=== PATIENT | female | born 1995 | race Caucasian/White ===

== ENCOUNTER 2018-05-10 23:26 | Emergency (ER) | payer BC, OTHER ==
[2018-05-11] MEDS ORDERED: IPRATROPIUM-ALBUTEROL 3 ML NEB INHALATION STA (00:17)
[2018-05-11 01:01] LABS: Basophils % (A) 0 %; Eosinophils # (A) 0.2 k/uL (0-0.7); Eosinophils % (A) 3 %; HCT 43.9 % (34.0-46.0); HGB 14.5 gm/dL (11.4-16.0); Lymphocytes # (A) 1.8 k/uL (1.0-4.8); Lymphocytes % (A) 32 %; MCH 29.3 pg (25.0-35.0); MCHC 32.9 g/dL (31.0-37.0); MCV 88.9 fL (80.0-100.0); Mean Platelet Volume 7.7; Monocytes # (A) 0.4 k/uL (0-1.0); Monocytes % (A) 6 %; Neutrophils # (A) 3.2 k/uL (1.3-7.7); Neutrophils % (A) 57 %; Platelet Count 226 k/uL (150-450); RBC 4.94 m/uL (3.80-5.40); RDW 14.5 % (11.5-15.5); WBC 5.7 k/uL (3.8-10.6)
--- NOTE | 2018-05-11 01:03 | ED ---
General Adult HPI - General Source: patient, RN notes reviewed, old records reviewed Mode of arrival: ambulatory Limitations: no limitations <Natali Cramer - Last Filed: 05/12/18 14:27> <Clare Chen - Last Filed: 05/17/18 04:06> - General Chief complaint: Upper Respiratory Infection Stated complaint: URI Time Seen by Provider: 05/10/18 23:57 - History of Present Illness Initial comments: Patient is a 23 year old female with a few weeks of cough, congestion, and chestpain. She reports that her sputum is brown tinged. She denies fever or chills. She was concerned due to increaseing chest pain on bilateral lower ribs with breathing, that she felt the need to be seen. She reports no nausea, vomiting. She is a smoker. (Natali Cramer) - Related Data Home Medications Medication Instructions Recorded Confirmed Desvenlafaxine Succinate [Pristiq] 100 mg PO DAILY 11/25/15 05/19/16 Pnv,Calcium 72/Iron/Folic Acid 1 each PO DAILY 04/25/16 05/19/16 [ Plus Tablet] Previous Rx's Medication Instructions Recorded Albuterol Inhaler [Ventolin Hfa 1 - 2 puff INHALATION RT-Q6H PRN 05/11/18 Inhaler] #1 inhaler Azithromycin [Zithromax Z-pack] 250 mg PO DIRECTED #6 tab 05/11/18 methylPREDNISolone Dose Pack 4 mg PO DIRECTED #21 package 05/11/18 [Medrol Dose Pack] Allergies Allergy/AdvReac Type Severity Reaction Status Date / Time No Known Allergies Allergy Verified 05/19/16 06:21 Review of Systems ROS Other: All systems not noted in ROS Statement are negative. <Natali Cramer - Last Filed: 05/12/18 14:27> ROS Other: All systems not noted in ROS Statement are negative. <Clare Chen - Last Filed: 05/17/18 04:06> ROS Statement: Those systems with pertinent positive or pertinent negative responses have been documented in the HPI. Past Medical History Past Medical History: GERD/Reflux Additional Past Medical History / Comment(s): frequent bronchitis History of Any Multi-Drug Resistant Organisms: None Reported Past Surgical History: Section Past Anesthesia/Blood Transfusion Reactions: No Reported Reaction Past Psychological History: Anxiety, Depression Smoking Status: Current every day smoker Past Alcohol Use History: Occasional Past Drug Use History: None Reported - Past Family History Mother Family Medical History: No Reported History Father Family Medical History: Hyperlipidemia, Hypertension Additional Family Medical History / Comment(s): psoriasis <Natali Cramer - Last Filed: 05/12/18 14:27> General Exam Limitations: no limitations General appearance: alert, in no apparent distress Head exam: Present: atraumatic, normocephalic, normal inspection Eye exam: Present: normal appearance, PERRL, EOMI. Absent: scleral icterus, conjunctival injection, periorbital swelling ENT exam: Present: normal exam, mucous membranes moist Neck exam: Present: normal inspection. Absent: tenderness, meningismus, lymphadenopathy Respiratory exam: Present: normal lung sounds bilaterally. Absent: respiratory distress, wheezes, rales, rhonchi, stridor Cardiovascular Exam: Present: regular rate, normal rhythm, normal heart sounds. Absent: systolic murmur, diastolic murmur, rubs, gallop, clicks GI/Abdominal exam: Present: soft, normal bowel sounds. Absent: distended, tenderness, guarding, rebound, rigid Psychiatric exam: Present: normal affect, normal mood Skin exam: Present: warm, dry, intact, normal color. Absent: rash <Natali Cramer - Last Filed: 05/12/18 14:27> <Clare Chen - Last Filed: 05/17/18 04:06> - General Exam Comments Initial Comments: 23 year old female, no distress. (Natali Cramer) Vital Signs 05/10/18 05/11/18 05/11/18 23:54 00:15 00:59 Temperature 98.4 F Pulse Rate 74 76 Respiratory 16 Rate Blood Pressure 126/80 O2 Sat by Pulse 92 L 100 Oximetry 05/11/18 05/11/18 01:06 02:05 Temperature 98 F Pulse Rate 70 85 Respiratory 18 Rate Blood Pressure 129/85 O2 Sat by Pulse 97 Oximetry EKG Findings - EKG Comments: EKG Findings:: EKG performed at 0 30 shows no essential abnormal EKG. Ventricular rate of 65 bpm. NE interval is 140 ms. QRS ration 86 ms. QT QTc is 410/426 ms. <Natali Cramer - Last Filed: 05/12/18 14:27> Medical Decision Making - Lab Data Result diagrams: 05/11/18 00:40 - Radiology Data Radiology results: report reviewed <Natali Cramer - Last Filed: 05/12/18 14:27> - Lab Data Result diagrams: 05/11/18 00:40 <Clare Chen - Last Filed: 05/17/18 04:06> - Medical Decision Making 23 year old female with weeks of cough, congestion, and reports worsening chest pain. She has no fevers or chills, vital signs stable. Lungs are clear, no significant wheezing noted. She reports tightness with breathing. She related to have a brown tinged sputum. At this time EKG, and lab work including troponin and Ddimer are negative. CXR shows no acute changes. At this time will treat the patient for bronchitis with azithromycin, inhalers, and medrol dose pack. Return parameters discussed. (Natali Cramer) I was available for consultation in the emergency department. The history and physical exam were done by the midlevel provider. I was consulted for this patient's care. I reviewed the case with the midlevel provider and based on their presentation of the patient, I agree with the assessment, medical decision making and plan of care as documented. (Clare Chen) - Lab Data Lab Results 05/11/18 05/11/18 05/11/18 Range/Units 00:40 00:40 00:40 WBC 5.7 (3.8-10.6) k/uL RBC 4.94 (3.80-5.40) m/uL Hgb 14.5 (11.4-16.0) gm/dL Hct 43.9 (34.0-46.0) % MCV 88.9 (80.0-100.0) fL MCH 29.3 (25.0-35.0) pg MCHC 32.9 (31.0-37.0) g/dL RDW 14.5 (11.5-15.5) % Plt Count 226 (150-450) k/uL Neutrophils % 57 % Lymphocytes % 32 % Monocytes % 6 % Eosinophils % 3 % Basophils % 0 % Neutrophils # 3.2 (1.3-7.7) k/uL Lymphocytes # 1.8 (1.0-4.8) k/uL Monocytes # 0.4 (0-1.0) k/uL Eosinophils # 0.2 (0-0.7) k/uL Basophils # 0.0 (0-0.2) k/uL D-Dimer 0.29 (<0.60) mg/L FEU Troponin I <0.012 (0.000-0.034) ng/mL - Radiology Data Normal CXR noted. No evidence of pneumonia. (Natali Cramer) Disposition Is patient prescribed a controlled substance at d/c from ED?: No Time of Disposition: 01:56 <Natali Cramer - Last Filed: 05/12/18 14:27> <Clare Chen - Last Filed: 05/17/18 04:06> Clinical Impression: Bronchitis Disposition: HOME SELF-CARE Condition: Good Instructions: Upper Respiratory Infection (ED) Additional Instructions: Patient advised to discontinue smoking. Follow-up with primary care provider. Return to emergency department if any alarming signs or symptoms occur. Prescriptions: Albuterol Inhaler [Ventolin Hfa Inhaler] 1 - 2 puff INHALATION RT-Q6H PRN #1 inhaler PRN Reason: Shortness Of Breath Azithromycin [Zithromax Z-pack] 250 mg PO DIRECTED #6 tab methylPREDNISolone Dose Pack [Medrol Dose Pack] 4 mg PO DIRECTED #21 package Referrals: Aleida Roque DO [Primary Care Provider] - 1-2 days
--- NOTE | 2018-05-11 01:14 | XR ---
EXAMINATION TYPE: XR chest 2V DATE OF EXAM: 05/11/2018 COMPARISON: NONE HISTORY: Cough and short of breath TECHNIQUE: Frontal and lateral views of the chest are obtained. FINDINGS: Heart and mediastinum are normal. Lungs are clear. Diaphragm is normal. Bony thorax appear s normal. IMPRESSION: Normal chest.
[2018-05-11 02:07] VITALS: BP 129/85; PULSE 85; RESP 18; TEMP 98
--- NOTE | 2018-05-12 11:09 | CDI ---
Documentation Clarification OP Dear KAYLA Dorantes: Please do addendum to ED report for missing hpi and physical examination. Thank you, quentin schilling Corn Det[employer] If you have any question, Please contact restaurant area manager at [phone] [facility]
== END 2018-05-11 02:05 | disposition home or self-care (01) ==
LOC: EC 23:26
DX: J40 Bronchitis, not specified as acute or chronic (principal); F32.9 Major depressive disorder, single episode, unspecified; F17.200 Nicotine dependence, unspecified, uncomplicated; Z79.899 Other long term (current) drug therapy
CPT/HCPCS: 36415; 71046; 84484; 85025; 85379; 93005; 94640; 99284

== ENCOUNTER → 2018-08-22 | Outpatient (CLI) | payer BC, OTHER ==
--- NOTE | 2018-08-22 13:02 | CT ---
EXAMINATION TYPE: CT angio chest DATE OF EXAM: 08/22/2018 COMPARISON: Chest CT November 25, 2015. HISTORY: Chest pain and shortness of breath. CT DLP: 362.5 mGycm. Automated Exposure Control for Dose Reduction was Utilized. CONTRAST: CTA scan of the thorax is performed with IV Contrast, patient injected with 100 mL of Isovue 370, pul monary embolism protocol. MIP Images are created on CT scanner and reviewed. FINDINGS: LUNGS: The lungs are grossly clear, there is no concerning parenchymal mass or nodule identified. T here is no pleural effusion or pneumothorax seen. The tracheobronchial tree is patent. MEDIASTINUM: There is suboptimal bolus with near equal contrast the right and left heart systems but no convincing CT evidence for acute pulmonary embolism. There are no greater than 1 cm hilar or medi astinal lymph nodes. No cardiomegaly or pericardial effusion is seen. Trimester shaped soft tissue density anterior superior mediastinum is felt to reflect residual thymus tissue there axial image 63 OTHER: Overlying bilateral metallic nipple ornaments incidentally noted. IMPRESSION: Suboptimal study without CT evidence for acute pulmonary embolism. No suspicious acute pu lmonary process is seen.
== END | disposition home or self-care (01) ==
LOC: RADCTMAIN 12:06
PROVIDERS: ATTEND Family Medicine
DX: R07.9 Chest pain, unspecified (principal); R06.02 Shortness of breath
CPT/HCPCS: 71275; Q9967

== ENCOUNTER 2018-09-24 21:54 | Emergency (ER) | payer BC, OTHER ==
[2018-09-24 21:58] VITALS: TEMP 97.5
--- NOTE | 2018-09-24 22:45 | ED ---
General Adult HPI - General Chief complaint: Shortness of Breath Stated complaint: MARIANA Time Seen by Provider: 09/24/18 22:13 Source: patient Mode of arrival: ambulatory Limitations: no limitations - History of Present Illness MD Complaint: 5 -: hour(s) Location: chest, back Quality: aching Consistency: constant Improves with: none Worsens with: other (Deep breath) Associated Symptoms: nausea/vomiting Treatments Prior to Arrival: none - Related Data Home Medications Medication Instructions Recorded Confirmed Desvenlafaxine Succinate [Pristiq] 100 mg PO DAILY 11/25/15 05/19/16 Pnv,Calcium 72/Iron/Folic Acid 1 each PO DAILY 04/25/16 05/19/16 [ Plus Tablet] Previous Rx's Medication Instructions Recorded Albuterol Inhaler [Ventolin Hfa 1 - 2 puff INHALATION RT-Q6H PRN 05/11/18 Inhaler] #1 inhaler Azithromycin [Zithromax Z-pack] 250 mg PO DIRECTED #6 tab 05/11/18 methylPREDNISolone Dose Pack 4 mg PO DIRECTED #21 package 05/11/18 [Medrol Dose Pack] Allergies Allergy/AdvReac Type Severity Reaction Status Date / Time No Known Allergies Allergy Verified 09/24/18 21:58 Review of Systems ROS Statement: Those systems with pertinent positive or pertinent negative responses have been documented in the HPI. ROS Other: All systems not noted in ROS Statement are negative. Past Medical History Past Medical History: GERD/Reflux Additional Past Medical History / Comment(s): frequent bronchitis History of Any Multi-Drug Resistant Organisms: None Reported Past Surgical History: Section Past Anesthesia/Blood Transfusion Reactions: No Reported Reaction Past Psychological History: Anxiety, Depression Smoking Status: Current every day smoker Past Alcohol Use History: Occasional Past Drug Use History: None Reported - Past Family History Mother Family Medical History: No Reported History Father Family Medical History: Hyperlipidemia, Hypertension Additional Family Medical History / Comment(s): psoriasis General Exam Limitations: no limitations General appearance: alert, in no apparent distress Head exam: Present: atraumatic, normocephalic Eye exam: Present: normal appearance. Absent: scleral icterus, conjunctival injection ENT exam: Present: normal oropharynx Neck exam: Present: normal inspection Respiratory exam: Present: normal lung sounds bilaterally. Absent: respiratory distress, wheezes, rales, rhonchi, stridor Cardiovascular Exam: Present: regular rate, normal rhythm, normal heart sounds. Absent: systolic murmur, diastolic murmur, rubs, gallop GI/Abdominal exam: Present: soft, tenderness (Right upper quadrant). Absent: distended, guarding, rebound, rigid, mass, pulsatile mass, hernia Extremities exam: Present: normal inspection, normal capillary refill. Absent: pedal edema, calf tenderness Back exam: Present: normal inspection. Absent: CVA tenderness (R), CVA tender ness (L) Neurological exam: Present: alert Skin exam: Present: warm, dry, intact, normal color. Absent: rash Course Vital Signs 09/24/18 21:56 Temperature 97.5 F L Pulse Rate 59 L Respiratory 18 Rate Blood Pressure 126/72 O2 Sat by Pulse 99 Oximetry EKG Findings - EKG Results: EKG: interpreted by YASMIN, sinus rhythm (Rate 61 bpm), normal axis, normal QRS, normal ST/T, no acute changes Medical Decision Making - Medical Decision Making Patient reevaluated and is feeling much better following analgesia. The patient on further history reveals she has had similar episode to this averaging about one time a month for the past 5 months. Given that we'll have the patient follow up with surgery and also have right upper quadrant sound as outpatient. We discussed appropriate follow-up and also return parameters. - Lab Data Result diagrams: 09/24/18 23:17 09/24/18 23:17 Lab Results 09/24/18 09/24/18 09/24/18 Range/Units 23:17 23:17 23:17 WBC 13.6 H (3.8-10.6) k/uL RBC 5.16 (3.80-5.40) m/uL Hgb 15.1 (11.4-16.0) gm/dL Hct 45.4 (34.0-46.0) % MCV 88.1 (80.0-100.0) fL MCH 29.3 (25.0-35.0) pg MCHC 33.2 (31.0-37.0) g/dL RDW 13.4 (11.5-15.5) % Plt Count 233 (150-450) k/uL Neutrophils % 78 % Lymphocytes % 15 % Monocytes % 5 % Eosinophils % 1 % Basophils % 0 % Neutrophils # 10.6 H (1.3-7.7) k/uL Lymphocytes # 2.1 (1.0-4.8) k/uL Monocytes # 0.6 (0-1.0) k/uL Eosinophils # 0.2 (0-0.7) k/uL Basophils # 0.0 (0-0.2) k/uL Sodium 142 (137-145) mmol/L Potassium 3.5 (3.5-5.1) mmol/L Chloride 104 (98-107) mmol/L Carbon Dioxide 25 (22-30) mmol/L Anion Gap 13 mmol/L BUN 8 (7-17) mg/dL Creatinine 0.72 (0.52-1.04) mg/dL Est GFR (CKD-EPI)AfAm >90 (>60 ml/min/1.73 sqM) Est GFR (CKD-EPI)NonAf >90 (>60 ml/min/1.73 sqM) Glucose 111 H (74-99) mg/dL Calcium 9.8 (8.4-10.2) mg/dL Total Bilirubin 1.0 (0.2-1.3) mg/dL AST 70 H (14-36) U/L ALT 44 (9-52) U/L Alkaline Phosphatase 85 (38-126) U/L Total Protein 8.1 (6.3-8.2) g/dL Albumin 4.6 (3.5-5.0) g/dL Amylase <30 L (30-110) U/L Lipase 37 (23-300) U/L Urine Color Urine Appearance (Clear) Urine pH (5.0-8.0) Ur Specific [place] (1.001-1.035) Urine Protein (Negative) Urine Glucose (UA) (Negative) Urine Ketones (Negative) Urine Blood (Negative) Urine Nitrite (Negative) Urine Bilirubin (Negative) Urine Urobilinogen (<2.0) mg/dL Ur Leukocyte Esterase (Negative) Urine RBC (0-5) /hpf Urine WBC Clumps (None) /hpf Ur Squamous Epith Cells (0-4) /hpf Amorphous Sediment (None) /hpf Urine Mucus (None) /hpf Urine HCG, Qual Not Detected (Not Detectd) 09/24/18 Range/Units 23:17 WBC (3.8-10.6) k/uL RBC (3.80-5.40) m/uL Hgb (11.4-16.0) gm/dL Hct (34.0-46.0) % MCV (80.0-100.0) fL MCH (25.0-35.0) pg MCHC (31.0-37.0) g/dL RDW (11.5-15.5) % Plt Count (150-450) k/uL Neutrophils % % Lymphocytes % % Monocytes % % Eosinophils % % Basophils % % Neutrophils # (1.3-7.7) k/uL Lymphocytes # (1.0-4.8) k/uL Monocytes # (0-1.0) k/uL Eosinophils # (0-0.7) k/uL Basophils # (0-0.2) k/uL Sodium (137-145) mmol/L Potassium (3.5-5.1) mmol/L Chloride (98-107) mmol/L Carbon Dioxide (22-30) mmol/L Anion Gap mmol/L BUN (7-17) mg/dL Creatinine (0.52-1.04) mg/dL Est GFR (CKD-EPI)AfAm (>60 ml/min/1.73 sqM) Est GFR (CKD-EPI)NonAf (>60 ml/min/1.73 sqM) Glucose (74-99) mg/dL Calcium (8.4-10.2) mg/dL Total Bilirubin (0.2-1.3) mg/dL AST (14-36) U/L ALT (9-52) U/L Alkaline Phosphatase (38-126) U/L Total Protein (6.3-8.2) g/dL Albumin (3.5-5.0) g/dL Amylase (30-110) U/L Lipase (23-300) U/L Urine Color Yellow Urine Appearance Cloudy H (Clear) Urine pH 8.0 (5.0-8.0) Ur Specific [place] 1.022 (1.001-1.035) Urine Protein 1+ H (Negative) Urine Glucose (UA) Negative (Negative) Urine Ketones Trace H (Negative) Urine Blood Negative (Negative) Urine Nitrite Negative (Negative) Urine Bilirubin Negative (Negative) Urine Urobilinogen 3.0 (<2.0) mg/dL Ur Leukocyte Esterase Small H (Negative) Urine RBC 4 (0-5) /hpf Urine WBC Clumps Moderate H (None) /hpf Ur Squamous Epith Cells 7 H (0-4) /hpf Amorphous Sediment Rare H (None) /hpf Urine Mucus Moderate H (None) /hpf Urine HCG, Qual (Not Detectd) Disposition Clinical Impression: Biliary colic Disposition: HOME SELF-CARE Condition: Good Instructions (If sedation given, give patient instructions): Biliary Colic (ED) Is patient prescribed a controlled substance at d/c from ED?: No Referrals: Aleida Roque DO [Primary Care Provider] - 1-2 days Richie Rodriguez MD [STAFF PHYSICIAN] - 1-2 days
[2018-09-24] MEDS ORDERED: ONDANSETRON 4 MG/2 ML VIAL IVP STA (23:02)
[2018-09-24] MEDS ORDERED: HYDROmorphone 0.5 MG/0.5 ML SYRINGE IVP STA (23:02)
[2018-09-24 23:36] LABS: Amorphous Sediment,Urine Rare /hpf; Appearance,Urine Cloudy (Clear); Bilirubin,Urine Negative (Negative); Blood,Urine Negative (Negative); Color,Urine Yellow; Glucose,Urine (UA) Negative (Negative); Ketones,Urine Trace (Negative); Leukocyte Esterase,Urine Small (Negative); Mucus,Urine Moderate /hpf; Nitrite,Urine Negative (Negative); Protein,Urine 1+ (Negative); RBC,Urine 4 /hpf (0-5); Specific Gravity,Urine 1.022 (1.001-1.035); Squamous Epithelial Cell,Urine 7 /hpf (0-4)
[2018-09-24 23:40] LABS: ALT 44 U/L (9-52); AST 70 U/L (14-36); Albumin 4.6 g/dL (3.5-5.0); Alkaline Phosphatase 85 U/L (38-126); Amylase <30 U/L (30-110); Anion Gap 13 mmol/L; Blood Urea Nitrogen 8 mg/dL (7-17); Calcium 9.8 mg/dL (8.4-10.2); Carbon Dioxide 25 mmol/L (22-30); Chloride 104 mmol/L (98-107); Glucose 111 mg/dL (74-99); Lipase 37 U/L (23-300); Potassium 3.5 mmol/L (3.5-5.1); Sodium 142 mmol/L (137-145); Total Protein 8.1 g/dL (6.3-8.2)
[2018-09-24 23:51] LABS: Basophils % (A) 0 %; Eosinophils # (A) 0.2 k/uL (0-0.7); Eosinophils % (A) 1 %; HCT 45.4 % (34.0-46.0); HGB 15.1 gm/dL (11.4-16.0); Lymphocytes # (A) 2.1 k/uL (1.0-4.8); Lymphocytes % (A) 15 %; MCH 29.3 pg (25.0-35.0); MCHC 33.2 g/dL (31.0-37.0); MCV 88.1 fL (80.0-100.0); Mean Platelet Volume 8.6; Monocytes # (A) 0.6 k/uL (0-1.0); Monocytes % (A) 5 %; Neutrophils # (A) 10.6 k/uL (1.3-7.7); Neutrophils % (A) 78 %; Platelet Count 233 k/uL (150-450); RBC 5.16 m/uL (3.80-5.40); RDW 13.4 % (11.5-15.5); WBC 13.6 k/uL (3.8-10.6)
--- NOTE | 2018-09-25 00:59 | CT ---
History: ITS.REASON CT Reason: Pain Exam: CT ABDOMEN + PELVIS Without Contrast Technique more: CTDI is 10.8 mGy and DLP is 1015.9 mGy-cm. Technique more: This CT exam was performed using one or more of the following dose reduction techniques: automated exposure control, adjustment of the mA and/or kV according to patient size, and/or use of iterative reconstruction technique. Comparison: None available FINDINGS: Mild dependent basilar atelectasis. Question appearance of periportal edema. Small punctate nonobstructing stones left kidney. No hydronephrosis or perinephric stranding. Other abdominal solid organs, gallbladder and abdominal aorta appear within limits on noncontrast imaging. No bowel dilation or free air. Normal caliber retrocecal appendix without secondary signs. Intrauterine device appears centrally located. The ovaries appear unremarkable on noncontrast imaging. Very small pelvic free fluid. The bladder is mostly collapsed. IMPRESSION: Question appearance of periportal edema. May correlate further with LFTs and alkaline phosphatase. Small punctate nonobstructing stones left kidney. No hydronephrosis or perinephric stranding. Very small pelvic free fluid.
[2018-09-25 02:27] VITALS: BP 117/60; PULSE 52; RESP 20
== END 2018-09-25 02:28 | disposition home or self-care (01) ==
LOC: EC 21:54
DX: K80.50 Calculus of bile duct without cholangitis or cholecystitis without obstruction (principal); R06.02 Shortness of breath; F32.9 Major depressive disorder, single episode, unspecified; F41.9 Anxiety disorder, unspecified; F17.200 Nicotine dependence, unspecified, uncomplicated; Z87.09 Personal history of other diseases of the respiratory system; Z79.899 Other long term (current) drug therapy
CPT/HCPCS: 36415; 80053; 82150; 83690; 85025; 81001; 81025; 74176; 99285; 96374; 96375; J2405; J1170

== ENCOUNTER → 2018-10-06 | Outpatient (CLI) | payer BC, OTHER ==
--- NOTE | 2018-10-06 14:37 | US ---
EXAMINATION TYPE: US gallbladder DATE OF EXAM: 10/06/2018 COMPARISON: CT CLINICAL HISTORY: R10.11 Upper quadrant pain, epigastric pain EXAM MEASUREMENTS: Liver Length: 14.2 cm Gallbladder Wall: 0.1 cm CBD: 0.3 cm Right Kidney: 10.4 x 5.6 x 4.1 cm Pancreas: wnl Liver: wnl Gallbladder: multiple mobile stones noted dependently within the gallbladder body. No pericholecysti c fluid or gallbladder wall thickening. Evidence for sonographic Cage's sign: no CBD: wnl Right Kidney: wnl IMPRESSION: Cholelithiasis without sonographic evidence of acute cholecystitis.
== END | disposition home or self-care (01) ==
LOC: RADUSWWP 13:42
PROVIDERS: ATTEND Nurse Practitioner Family
DX: K80.20 Calculus of gallbladder without cholecystitis without obstruction (principal)
CPT/HCPCS: 76705

== ENCOUNTER 2018-10-23 07:40 | Emergency (ER) | payer BC, OTHER ==
[2018-10-23 07:48] VITALS: BP 132/79; PULSE 54; RESP 18; TEMP 98.2
[2018-10-23] MEDS ORDERED: HYDROcodone/APAP 5-325MG 1 EACH TAB PO STA (08:09)
--- NOTE | 2018-10-23 08:11 | ED ---
General Adult HPI - General Chief complaint: Abdominal Pain Stated complaint: gallbladder pain Time Seen by Provider: 10/23/18 07:48 Source: patient Mode of arrival: ambulatory Limitations: no limitations - History of Present Illness Initial comments: Dictation was produced using [employer] dictation software. please excuse any grammatical, word or spelling errors. Chief Complaint: 23-year-old female with recently diagnosed cholelithiasis presents with persistent right upper quadrant abdominal pain. History of Present Illness: -year-old female. She has no significant past medical history. Patient was recently here in the emergency department for right upper quadrant abdominal pain. Patient was seen approximately one month ago. She was diagnosed with biliary colic secondary to cholelithiasis. At that visit a month ago patient was referred to general surgery for follow-up appointment for outpatient management. Patient states she was not able to get an appointment until November. Over the last month patient has been having symptoms of right upper quadrant abdominal pain. She was counseled on avoiding greasy foods. She still however continues to have some right upper quadrant symptoms. Patient does complain intermittently of constitutional symptoms however over the last 48 hours she denies any fevers, chills or night sweats. Patient states currently that her pain is tolerable. States pain is not better with the tramadol. The ROS documented in this emergency department record has been reviewed and c onfirmed by me. Those systems with pertinent positive or negative responses have been documented in the HPI. All other systems are other negative and/or noncontributory. PHYSICAL EXAM: General Impression: Alert and oriented x3, not in acute distress HEENT: Normocephalic atraumatic, extra-ocular movements intact, pupils equal and reactive to light bilaterally, mucous membranes moist. Cardiovascular: Heart regular rate and rhythm, S1&S2 audible, no murmurs, rubs or gallops Chest: Lungs clear to auscultation bilaterally, no rhonchi, no wheeze, no rales Abdomen: Bowel sounds present, abdomen soft, non-tender, non-distended, no organomegaly Musculoskeletal: Pulses present and equal in all extremities, no peripheral edema Motor: no focal deficits noted Neurological: CN II-XII grossly intact, no focal motor or sensory deficits noted Skin: Intact with no visualized rashes Psych: Normal affect and mood ED course: 23-year-old female presents with persistent right upper quadrant abdominal pain after being diagnosed cholelithiasis one month ago. Vital signs upon arrival are within acceptable limits. Lavatory evaluation obtained. Patient given by mouth analgesia patient reevaluated with improvement symptoms. Patient given prescription for by mouth analgesia. She is told to use them sparingly given that it has addictive potential and has many other side effects. Patient told to call her general surgeon to possibly schedule an earlier appointment for possible outpatient management of symptomatic cholelithiasis. Laboratory evaluation obtained showing no acute processes. No suspicion for acute cholecystitis or choledocholithiasis. - Related Data Home Medications Medication Instructions Recorded Confirmed Phentermine HCl [Adipex-P] 37.5 mg PO DAILY 10/23/18 10/23/18 traMADol HCL [Ultram] 50 mg PO DAILY PRN 10/23/18 10/23/18 Previous Rx's Medication Instructions Recorded Albuterol Inhaler [Ventolin Hfa 1 - 2 puff INHALATION RT-Q6H PRN 05/11/18 Inhaler] #1 inhaler HYDROcodone/APAP 5-325MG [[place] 1 tab PO Q6HR PRN 3 Days #5 tab 10/23/18 5-325] Allergies Allergy/AdvReac Type Severity Reaction Status Date / Time No Known Allergies Allergy Verified 10/23/18 08:14 Review of Systems ROS Statement: Those systems with pertinent positive or pertinent negative responses have been documented in the HPI. ROS Other: All systems not noted in ROS Statement are negative. Past Medical History Past Medical History: GERD/Reflux Additional Past Medical History / Comment(s): frequent bronchitis History of Any Multi-Drug Resistant Organisms: None Reported Past Surgical History: Section Past Anesthesia/Blood Transfusion Reactions: No Reported Reaction Past Psychological History: Anxiety, Depression Smoking Status: Former smoker Past Alcohol Use History: Occasional Past Drug Use History: None Reported - Past Family History Mother Family Medical History: No Reported History Father Family Medical History: Hyperlipidemia, Hypertension Additional Family Medical History / Comment(s): psoriasis General Exam Limitations: no limitations Course Vital Signs 10/23/18 07:45 Temperature 98.2 F Pulse Rate 54 L Respiratory 18 Rate Blood Pressure 132/79 O2 Sat by Pulse 99 Oximetry Medical Decision Making - Lab Data Result diagrams: 10/23/18 08:00 10/23/18 08:00 Lab Results 10/23/18 10/23/18 10/23/18 Range/Units 08:00 08:00 08:00 WBC 10.5 (3.8-10.6) k/uL RBC 4.62 (3.80-5.40) m/uL Hgb 13.9 (11.4-16.0) gm/dL Hct 40.9 (34.0-46.0) % MCV 88.7 (80.0-100.0) fL MCH 30.2 (25.0-35.0) pg MCHC 34.1 (31.0-37.0) g/dL RDW 13.1 (11.5-15.5) % Plt Count 219 (150-450) k/uL Neutrophils % 62 % Lymphocytes % 28 % Monocytes % 5 % Eosinophils % 4 % Basophils % 0 % Neutrophils # 6.5 (1.3-7.7) k/uL Lymphocytes # 2.9 (1.0-4.8) k/uL Monocytes # 0.5 (0-1.0) k/uL Eosinophils # 0.5 (0-0.7) k/uL Basophils # 0.0 (0-0.2) k/uL Sodium 141 (137-145) mmol/L Potassium 4.4 (3.5-5.1) mmol/L Chloride 106 (98-107) mmol/L Carbon Dioxide 22 (22-30) mmol/L Anion Gap 13 mmol/L BUN 11 (7-17) mg/dL Creatinine 0.69 (0.52-1.04) mg/dL Est GFR (CKD-EPI)AfAm >90 (>60 ml/min/1.73 sqM) Est GFR (CKD-EPI)NonAf >90 (>60 ml/min/1.73 sqM) Glucose 102 H (74-99) mg/dL Calcium 9.3 (8.4-10.2) mg/dL Total Bilirubin 0.8 (0.2-1.3) mg/dL AST 30 (14-36) U/L ALT 26 (9-52) U/L Alkaline Phosphatase 62 (38-126) U/L Total Protein 7.6 (6.3-8.2) g/dL Albumin 4.5 (3.5-5.0) g/dL Lipase 26 (23-300) U/L Urine HCG, Qual Not Detected (Not Detectd) Disposition Clinical Impression: Biliary colic Disposition: HOME SELF-CARE Condition: Good Instructions (If sedation given, give patient instructions): Abdominal Pain (ED) Prescriptions: HYDROcodone/APAP 5-325MG [[place] 5-325] 1 tab PO Q6HR PRN 3 Days #5 tab PRN Reason: Severe Pain Is patient prescribed a controlled substance at d/c from ED?: Yes If prescribed controlled substance>3 days was MAPS reviewed?: Prescribed <3 Days Referrals: Richie Rodriguez MD [STAFF PHYSICIAN] - 1-2 days Time of Disposition: 09:36
[2018-10-23 08:21] LABS: Basophils % (A) 0 %; Eosinophils # (A) 0.5 k/uL (0-0.7); Eosinophils % (A) 4 %; HCT 40.9 % (34.0-46.0); HGB 13.9 gm/dL (11.4-16.0); Lymphocytes # (A) 2.9 k/uL (1.0-4.8); Lymphocytes % (A) 28 %; MCH 30.2 pg (25.0-35.0); MCHC 34.1 g/dL (31.0-37.0); MCV 88.7 fL (80.0-100.0); Mean Platelet Volume 7.6; Monocytes # (A) 0.5 k/uL (0-1.0); Monocytes % (A) 5 %; Neutrophils # (A) 6.5 k/uL (1.3-7.7); Neutrophils % (A) 62 %; Platelet Count 219 k/uL (150-450); RBC 4.62 m/uL (3.80-5.40); RDW 13.1 % (11.5-15.5); WBC 10.5 k/uL (3.8-10.6)
[2018-10-23 08:54] LABS: ALT 26 U/L (9-52); AST 30 U/L (14-36); Albumin 4.5 g/dL (3.5-5.0); Alkaline Phosphatase 62 U/L (38-126); Anion Gap 13 mmol/L; Blood Urea Nitrogen 11 mg/dL (7-17); Calcium 9.3 mg/dL (8.4-10.2); Carbon Dioxide 22 mmol/L (22-30); Chloride 106 mmol/L (98-107); Glucose 102 mg/dL (74-99); Lipase 26 U/L (23-300); Sodium 141 mmol/L (137-145); Total Bilirubin 0.8 mg/dL (0.2-1.3); Total Protein 7.6 g/dL (6.3-8.2)
[2018-10-23 08:58] LABS: Potassium 4.4 mmol/L (3.5-5.1)
== END 2018-10-23 09:50 | disposition home or self-care (01) ==
LOC: EC 07:40
DX: K80.50 Calculus of bile duct without cholangitis or cholecystitis without obstruction (principal); Z79.899 Other long term (current) drug therapy; Z87.891 Personal history of nicotine dependence
CPT/HCPCS: 36415; 80053; 81025; 83690; 85025; 99284

== ENCOUNTER 2018-11-02 00:59 | Inpatient (IN) | payer BC, OTHER ==
[2018-11-02 02:31] LABS: Basophils % (A) 0 %; Eosinophils # (A) 0.5 k/uL (0-0.7); Eosinophils % (A) 6 %; HCT 45.3 % (34.0-46.0); HGB 15.4 gm/dL (11.4-16.0); Lymphocytes # (A) 1.9 k/uL (1.0-4.8); Lymphocytes % (A) 22 %; MCH 30.3 pg (25.0-35.0); MCHC 34.1 g/dL (31.0-37.0); Mean Platelet Volume 8.2; Monocytes # (A) 0.5 k/uL (0-1.0); Monocytes % (A) 6 %; Neutrophils # (A) 5.6 k/uL (1.3-7.7); Neutrophils % (A) 65 %; Platelet Count 265 k/uL (150-450); RBC 5.09 m/uL (3.80-5.40); RDW 14.3 % (11.5-15.5); WBC 8.6 k/uL (3.8-10.6)
[2018-11-02 02:42] LABS: ALT 422 U/L (9-52); AST 145 U/L (14-36); Albumin 4.8 g/dL (3.5-5.0); Alkaline Phosphatase 162 U/L (38-126); Amylase <30 U/L (30-110); Anion Gap 9 mmol/L; Blood Urea Nitrogen 6 mg/dL (7-17); Calcium 9.7 mg/dL (8.4-10.2); Carbon Dioxide 32 mmol/L (22-30); Chloride 98 mmol/L (98-107); Glucose 98 mg/dL (74-99); Lipase 27 U/L (23-300); Potassium 4.1 mmol/L (3.5-5.1); Sodium 139 mmol/L (137-145); Total Bilirubin 3.7 mg/dL (0.2-1.3); Total Protein 8.2 g/dL (6.3-8.2)
[2018-11-02 03:30] LABS: Appearance,Urine Clear (Clear); Bilirubin,Urine 2+ (Negative); Blood,Urine Negative (Negative); Color,Urine Orange; Glucose,Urine (UA) Negative (Negative); Ketones,Urine Negative (Negative); Leukocyte Esterase,Urine Small (Negative); Mucus,Urine Moderate /hpf; Nitrite,Urine Negative (Negative); Protein,Urine Trace (Negative); RBC,Urine 2 /hpf (0-5); Specific Gravity,Urine 1.017 (1.001-1.035); Squamous Epithelial Cell,Urine 2 /hpf (0-4); WBC,Urine 7 /hpf (0-5)
[2018-11-02] MEDS ORDERED: HYDROmorphone 1 MG/ML 1 ML SYRINGE IVP STA (03:44)
[2018-11-02] MEDS ORDERED: SODIUM CHLORIDE 0.9% 1,000 ML IV ONE (03:44)
--- NOTE | 2018-11-02 03:44 | ED ---
General Adult HPI - General Chief complaint: Abdominal Pain Stated complaint: gallstones Time Seen by Provider: 11/02/18 02:20 Source: patient, RN notes reviewed, old records reviewed Mode of arrival: ambulatory Limitations: no limitations - History of Present Illness Initial comments: 31-year-old female presenting for evaluation of right upper quadrant abdominal pain. Patient has history of gallstones, she has been attempting to obtain outpatient follow-up regarding her gallstones and right upper quadrant pain. She has an appointment for later this week with general surgery. She's been unable to tolerate the increased pain which has become constant. She denies fever or chills. She does report nausea and vomiting associated with her pain. No chronic medical problems. No lower abdominal pain. No dysuria or hematuria. - Related Data Home Medications Medication Instructions Recorded Confirmed Phentermine HCl [Adipex-P] 37.5 mg PO DAILY 10/23/18 10/23/18 Previous Rx's Medication Instructions Recorded Albuterol Inhaler [Ventolin Hfa 1 - 2 puff INHALATION RT-Q6H PRN 05/11/18 Inhaler] #1 inhaler HYDROcodone/APAP 5-325MG [[place] 1 tab PO Q6HR PRN 3 Days #5 tab 10/23/18 5-325] Allergies Allergy/AdvReac Type Severity Reaction Status Date / Time No Known Allergies Allergy Verified 10/23/18 08:14 Review of Systems ROS Statement: Those systems with pertinent positive or pertinent negative responses have been documented in the HPI. ROS Other: All systems not noted in ROS Statement are negative. Past Medical History Past Medical History: GERD/Reflux Additional Past Medical History / Comment(s): frequent bronchitis, gall stones History of Any Multi-Drug Resistant Organisms: None Reported Past Surgical History: Section Past Anesthesia/Blood Transfusion Reactions: No Reported Reaction Past Psychological History: Anxiety, Depression Smoking Status: Former smoker Past Alcohol Use History: Occasional Past Drug Use History: None Reported - Past Family History Mother Family Medical History: No Reported History Father Family Medical History: Hyperlipidemia, Hypertension Additional Family Medical History / Comment(s): psoriasis General Exam Limitations: no limitations General appearance: alert, in no apparent distress Head exam: Present: atraumatic, normocephalic Eye exam: Present: normal appearance, PERRL ENT exam: Present: normal exam Neck exam: Present: normal inspection. Absent: tenderness, meningismus Respiratory exam: Present: normal lung sounds bilaterally. Absent: respiratory distress, wheezes Cardiovascular Exam: Present: regular rate, normal rhythm GI/Abdominal exam: Present: soft, tenderness (Right upper quadrant and epigastri c tenderness). Absent: distended, guarding, rebound Extremities exam: Present: normal inspection Neurological exam: Present: alert, oriented X3 Psychiatric exam: Present: normal affect, normal mood Skin exam: Present: warm, dry, intact. Absent: cyanosis, diaphoretic Course Vital Signs 11/02/18 01:04 Temperature 98.1 F Pulse Rate 58 L Respiratory 20 Rate Blood Pressure 131/93 O2 Sat by Pulse 100 Oximetry Medical Decision Making - Medical Decision Making 23-year-old female with worsening right upper quadrant pain. History of gallstones. Patient is well-appearing with stable vitals patient does have some abdominal tenderness in the right upper quadrant. No rebound or guarding. Workup reveals normal CBC, no leukocytosis. She has hyperbilirubinemia with bilirubin 2.7, she has a transaminitis AST 145, ALT 420, alkaline phosphatase is elevated 162. Normal lipase. These levels were previously obtained and were normal. Ultrasound is obtained, shows increased gallbladder dilatation and wall thickening, enlarged common bile duct at 1.1. There is concern for distal stone. Patient was initiated on antibiotics, given IV fluids and pain medication she will be admitted with both gastroenterology and general surgery on consult. Case discussed with Dr. Conrad, and Dr. Diaz. Diagnosis: Acute cholecystitis, concern for cholangitis - Lab Data Result diagrams: 11/02/18 02:13 11/02/18 02:13 Lab Results 11/02/18 11/02/18 11/02/18 Range/Units 02:13 02:13 03:17 WBC 8.6 (3.8-10.6) k/uL RBC 5.09 (3.80-5.40) m/uL Hgb 15.4 (11.4-16.0) gm/dL Hct 45.3 (34.0-46.0) % MCV 89.0 (80.0-100.0) fL MCH 30.3 (25.0-35.0) pg MCHC 34.1 (31.0-37.0) g/dL RDW 14.3 (11.5-15.5) % Plt Count 265 (150-450) k/uL Neutrophils % 65 % Lymphocytes % 22 % Monocytes % 6 % Eosinophils % 6 % Basophils % 0 % Neutrophils # 5.6 (1.3-7.7) k/uL Lymphocytes # 1.9 (1.0-4.8) k/uL Monocytes # 0.5 (0-1.0) k/uL Eosinophils # 0.5 (0-0.7) k/uL Basophils # 0.0 (0-0.2) k/uL Sodium 139 (137-145) mmol/L Potassium 4.1 (3.5-5.1) mmol/L Chloride 98 (98-107) mmol/L Carbon Dioxide 32 H (22-30) mmol/L Anion Gap 9 mmol/L BUN 6 L (7-17) mg/dL Creatinine 0.70 (0.52-1.04) mg/dL Est GFR (CKD-EPI)AfAm >90 (>60 ml/min/1.73 sqM) Est GFR (CKD-EPI)NonAf >90 (>60 ml/min/1.73 sqM) Glucose 98 (74-99) mg/dL Calcium 9.7 (8.4-10.2) mg/dL Total Bilirubin 3.7 H (0.2-1.3) mg/dL AST 145 H (14-36) U/L ALT 422 H (9-52) U/L Alkaline Phosphatase 162 H (38-126) U/L Total Protein 8.2 (6.3-8.2) g/dL Albumin 4.8 (3.5-5.0) g/dL Amylase <30 L (30-110) U/L Lipase 27 (23-300) U/L Urine Color Urine Appearance (Clear) Urine pH (5.0-8.0) Ur Specific [place] (1.001-1.035) Urine Protein (Negative) Urine Glucose (UA) (Negative) Urine Ketones (Negative) Urine Blood (Negative) Urine Nitrite (Negative) Urine Bilirubin (Negative) Urine Urobilinogen (<2.0) mg/dL Ur Leukocyte Esterase (Negative) Urine RBC (0-5) /hpf Urine WBC (0-5) /hpf Ur Squamous Epith Cells (0-4) /hpf Urine Mucus (None) /hpf Urine HCG, Qual Not Detected (Not Detectd) 11/02/18 Range/Units 03:17 WBC (3.8-10.6) k/uL RBC (3.80-5.40) m/uL Hgb (11.4-16.0) gm/dL Hct (34.0-46.0) % MCV (80.0-100.0) fL MCH (25.0-35.0) pg MCHC (31.0-37.0) g/dL RDW (11.5-15.5) % Plt Count (150-450) k/uL Neutrophils % % Lymphocytes % % Monocytes % % Eosinophils % % Basophils % % Neutrophils # (1.3-7.7) k/uL Lymphocytes # (1.0-4.8) k/uL Monocytes # (0-1.0) k/uL Eosinophils # (0-0.7) k/uL Basophils # (0-0.2) k/uL Sodium (137-145) mmol/L Potassium (3.5-5.1) mmol/L Chloride (98-107) mmol/L Carbon Dioxide (22-30) mmol/L Anion Gap mmol/L BUN (7-17) mg/dL Creatinine (0.52-1.04) mg/dL Est GFR (CKD-EPI)AfAm (>60 ml/min/1.73 sqM) Est GFR (CKD-EPI)NonAf (>60 ml/min/1.73 sqM) Glucose (74-99) mg/dL Calcium (8.4-10.2) mg/dL Total Bilirubin (0.2-1.3) mg/dL AST (14-36) U/L ALT (9-52) U/L Alkaline Phosphatase (38-126) U/L Total Protein (6.3-8.2) g/dL Albumin (3.5-5.0) g/dL Amylase (30-110) U/L Lipase (23-300) U/L Urine Color [place] Urine Appearance Clear (Clear) Urine pH 6.0 (5.0-8.0) Ur Specific [place] 1.017 (1.001-1.035) Urine Protein Trace H (Negative) Urine Glucose (UA) Negative (Negative) Urine Ketones Negative (Negative) Urine Blood Negative (Negative) Urine Nitrite Negative (Negative) Urine Bilirubin 2+ H (Negative) Urine Urobilinogen 4.0 (<2.0) mg/dL Ur Leukocyte Esterase Small H (Negative) Urine RBC 2 (0-5) /hpf Urine WBC 7 H (0-5) /hpf Ur Squamous Epith Cells 2 (0-4) /hpf Urine Mucus Moderate H (None) /hpf Urine HCG, Qual (Not Detectd) Disposition Clinical Impression: Acute cholecystitis Disposition: ADMITTED IP TO THIS HOSP Condition: Stable Is patient prescribed a controlled substance at d/c from ED?: No Referrals: Aleida Roque DO [Primary Care Provider] - 1-2 days Decision to Admit Reason: Admit from EC Decision Date: 11/02/18 Decision Time: 04:21
--- NOTE | 2018-11-02 03:46 | US ---
EXAM: US Abdomen Limited, Right Upper Quadrant CLINICAL HISTORY: ITS.REASON US Reason: Pain TECHNIQUE: Real-time ultrasound of the right upper quadrant with image documentation. COMPARISON: 09/25/18 FINDINGS: Liver: Unremarkable. No mass. No intrahepatic bile duct dilation. Gallbladder: Distended gallbladder with borderline wall thickening and sludge but no stones. Common bile duct: Severe dilatation of the CBD at 1.1 cm. No stones. Pancreas: Unremarkable as visualized. Right kidney: Unremarkable. No stones. No solid mass. No hydronephrosis. IMPRESSION: 1. Distended gallbladder with borderline wall thickening and sludge but no stones. 2. Severe dilatation of the CBD at 1.1, not definitely seen on the prior CT.
[2018-11-02] MEDS ORDERED: PIPERACILLIN-TAZOBACTAM 3.375 GM in SODIUM CHLORIDE 0.9% 100 ML IVPB STA (03:52)
[2018-11-02] MEDS ORDERED: NALOXONE 0.4 MG/ML 1 ML VIAL IV PRN (04:14)
[2018-11-02] MEDS ORDERED: ONDANSETRON 4 MG/2 ML VIAL IVP PRN (04:14)
[2018-11-02] MEDS: HYDROmorphone 0.5 MG/0.5 ML SYRINGE IVP PRN ×4 (04:52→21:14)
[2018-11-02] MEDS: SODIUM CHLORIDE 0.9% 1,000 ML IV SCH ×2 (04:56→17:06)
[2018-11-02] MEDS ORDERED: ALBUTEROL NEBULIZED 2.5 MG/3 ML INHALATION PRN (10:01)
--- NOTE | 2018-11-02 10:13 | P.HPIM ---
History of Present Illness H&P Date: 11/02/18 This is a 23-year-old female patient of Dr. Conroy. Patient presented with complaints of increased abdominal pain. Patient reports that she's had issues with her gallbladder intermittently over the past 6 months but over the past 2 weeks has become increasingly worse and consistent. Patient did have appointment with Dr. levine was unable to wait due to increased pain. Patient does have a past medical history of GERD, bronchitis, , anxiety, depression and previous smoker. Patient denies any significant cardiac history. Patient denies irregular heart rate. Patient denies blood clots. Patient denies any history of COPD. Gallbladder ultrasound completed showing distended gallbladder with stones. Severe dilation of CBD at 1.1 not definitively seen on the prior CT. Total bilirubin elevated at 3.7, AST 8145 ALT 422 and alkaline phosphatase 162. Surgical services consulted GI service is consulted. Patient started on zosyn for antibiotic. Patient currently nothing by mouth. At this time patient is resting comfortably in bed. Complains of some abdominal pain upon palpation. Patient denies any nausea or vomiting at this time. Patient denies any urinary burning or frequency. Review of Systems please refer to HPI otherwise unremarkable Past Medical History Past Medical History: GERD/Reflux Additional Past Medical History / Comment(s): Frequent bronchitis, gall stones History of Any Multi-Drug Resistant Organisms: None Reported Past Surgical History: Section Additional Past Surgical History / Comment(s): [place] teeth extractions Past Anesthesia/Blood Transfusion Reactions: No Reported Reaction Smoking Status: Former smoker - Past Family History Mother Family Medical History: No Reported History Additional Family Medical History / Comment(s): Mother is healthy Father Family Medical History: Hyperlipidemia, Hypertension Additional Family Medical History / Comment(s): psoriasis Medications and Allergies Home Medications Medication Instructions Recorded Confirmed Type Albuterol Inhaler [Ventolin Hfa 1 - 2 puff INHALATION RT-Q6H PRN 05/11/1810/10 Rx Inhaler] #1 inhaler Phentermine HCl [Adipex-P] 37.5 mg PO DAILY 10/23/18 10/23/18 History Butalb/APAP/Caff 50-325-40Mg 1 tab PO DAILY PRN 11/02/18 11/02/18 History [Fioricet 50-325-40] Allergies Allergy/AdvReac Type Severity Reaction Status Date / Time No Known Allergies Allergy Verified 11/02/18 08:06 Physical Exam Vitals: Vital Signs Temp Pulse Pulse Resp BP BP Pulse Ox 11/02/18 07:39 97.6 F 60 16 92/54 99 11/02/18 06:08 98.3 F 77 20 129/79 97 11/02/18 05:00 98 F 64 18 128/78 98 11/02/18 01:04 98.1 F 58 L 20 131/93 100 Intake and Output 11/01/18 11/02/18 11/02/18 22:59 06:59 14:59 Other: Weight 90.718 kg Head normocephalic Neck supple Lungs clear to auscultation bilaterally no wheezing or crackles Heart regular rate and rhythm S1-S2, no rub or gallop Abdomen is soft nontender nondistended positive bowel sounds no hepatosplenomegaly. Epigastric tenderness to palpation Extremities no edema Neuro alert and orientated to 3 Results CBC & Chem 7: 11/02/18 02:13 11/02/18 02:13 Labs: Abnormal Lab Results - Last 24 Hours (Table) 11/02/18 11/02/18 Range/Units 02:13 03:17 Carbon Dioxide 32 H (22-30) mmol/L BUN 6 L (7-17) mg/dL Total Bilirubin 3.7 H (0.2-1.3) mg/dL AST 145 H (14-36) U/L ALT 422 H (9-52) U/L Alkaline Phosphatase 162 H (38-126) U/L Amylase <30 L (30-110) U/L Urine Protein Trace H (Negative) Urine Bilirubin 2+ H (Negative) Ur Leukocyte Esterase Small H (Negative) Urine WBC 7 H (0-5) /hpf Urine Mucus Moderate H (None) /hpf Thrombosis Risk Factor Assmnt - Choose All That Apply Any of the Below Risk Factors Present?: Yes Each Factor Represents 1 point: Obesity (BMI >25) Other Risk Factors: No Other congenital or acquired thrombophilia - If yes, enter type in comment: No Thrombosis Risk Factor Assessment Total Risk Factor Score: 1 Thrombosis Risk Factor Assessment Level: Low Risk Assessment and Plan Assessment: 1. Acute cholecystitis with hypobilirubinemia. Gallbladder ultrasound completed showing distended gallbladder with borderline wall thickening and sludge but no stones. Severe dilation of CBD at 1.1, not definitely seen on prior CT. ALT 422 and alkaline phosphatase 162. Patient started on Zosyn. GI and surgical service is consulted. Patient currently nothing by mouth. Normal saline at 75 2. History of GERD 3. History of bronchitis 4. History of anxiety and depression 5. History of DVT prophylaxis SCDs until evaluated by surgical services. GI prophylaxis Protonix Time with Patient: Greater than 30 (Greater than 60% of the total time spent in counseling and coordination of care. I performed an examination of the patient and discussed their management with the Nurse Practitioner. I have reviewed the Nurse Practitioner's notes and agree with the documented findings and plan of care)
[2018-11-02 12:18] LABS: INR 0.9 (<1.2); Prothrombin Time 10.2 sec (9.0-12.0)
[2018-11-02] MEDS: PIPERACILLIN-TAZOBACTAM 3.375 GM in SODIUM CHLORIDE 0.9% 100 ML IVPB SCH ×2 (13:00→20:23)
--- NOTE | 2018-11-02 13:04 | P.GSCN ---
<Donna Aquino - Last Filed: 11/02/18 13:04> History of Present Illness Consult date: 11/02/18 Reason for Consult: Acute cholecystitis Requesting physician: Elder Sebastian History of present illness: CHIEF COMPLAINT: Acute cholecystitis HISTORY OF PRESENT ILLNESS: 23-year-old female who presented to emergency room with a chief complaint of right upper quadrant abdominal pain. Patient states she has known gallbladder issues and had an outpatient consultation scheduled with Dr. Patel for November of this year. Recently she has noticed her pain becoming more frequent and more severe so she changed her consultation to Dr. Rodriguez as she was able to get an appointment with him next week. However, she reports severe pain, nausea, and vomiting for the past 4 days so she came to the ER for further evaluation. Patient examined this morning at the bedside. Denies any further episodes of vomiting. Denies right upper quadrant pain currently but reports epigastric pain. Denies diarrhea or constipation. PAST MEDICAL HISTORY: See list. PAST SURGICAL HISTORY: See list. SOCIAL HISTORY: No illicit drug use. REVIEW OF SYSTEMS: CONSTITUTIONAL: Denies fever or chills. HEENT: Denies blurred vision, vision changes, or eye pain. Denies hemoptysis CARDIOVASCULAR: Denies chest pain or pressure. RESPIRATORY: No shortness of breath. GASTROINTESTINAL: Refer to HPI for pertinent findings HEMATOLOGIC: Denies bleeding disorders. GENITOURINARY: Denies any blood in urine. SKIN: Denies pruitis. Denies rash. PHYSICAL EXAM: VITAL SIGNS: Reviewed. GENERAL: Well-developed in no acute distress. HEENT: No sclera icterus. Extraocular movements grossly intact. Moist buccal mucosa. Head is atraumatic, normocephalic. ABDOMEN: Soft. Nondistended. Tenderness upon palpation of epigastric region. NEUROLOGIC: Alert and oriented. Cranial nerves II through XII grossly intact. LABORATORY DATA: WBC 8.6. Hemoglobin 15.4. Total bilirubin 3.7. AST 145. ALT 422. Alkaline phosphatase 162. Amylase less than 30. Lipase 27. IMAGING: Ultrasound abdomen: Distended gallbladder with borderline wall thickening and sludge. No visualized stones. Severe dilation of the common bile duct at 1.1 cm, not seen on prior CT. ASSESSMENT: 1. Abdominal pain, nausea, vomiting x 4 days 2. Acute cholecystitis, US reveals distended gallbladder with borderline wall thickening and sludge 3. Hyperbilirubinemia 4. Transaminitis 5. Severely dilated common bile duct measuring 1.1 cm PLAN: 1. NPO 3. Continue antibiotics 4. Await GI consultation 4. Laparoscopic cholecystectomy once LFTs improve Nurse practitioner note has been reviewed by physician. Signing provider agrees with the documented findings, assessment, and plan of care. Past Medical History Past Medical History: GERD/Reflux Additional Past Medical History / Comment(s): Frequent bronchitis, gall stones History of Any Multi-Drug Resistant Organisms: None Reported Past Surgical History: Section Additional Past Surgical History / Comment(s): [place] teeth extractions Past Anesthesia/Blood Transfusion Reactions: No Reported Reaction Smoking Status: Former smoker - Past Family History Mother Family Medical History: No Reported History Additional Family Medical History / Comment(s): Mother is healthy Father Family Medical History: Hyperlipidemia, Hypertension Additional Family Medical History / Comment(s): psoriasis Medications and Allergies Home Medications Medication Instructions Recorded Confirmed Type Albuterol Inhaler [Ventolin Hfa 1 - 2 puff INHALATION RT-Q6H PRN 05/11/18 11/02/18 Rx Inhaler] #1 inhaler Phentermine HCl [Adipex-P] 37.5 mg PO DAILY 10/23/18 11/02/18 History Butalb/APAP/Caff 50-325-40Mg 1 tab PO DAILY PRN 11/02/18 11/02/18 History [Fioricet 50-325-40] Allergies Allergy/AdvReac Type Severity Reaction Status Date / Time No Known Allergies Allergy Verified 11/02/18 08:06 Surgical - Exam Vital Signs Temp Pulse Resp BP Pulse Ox 98.1 F 58 L 20 131/93 100 11/02/18 01:04 11/02/18 01:04 11/02/18 01:04 11/02/18 01:04 11/02/18 01:04 Results - Labs 11/02/18 02:13 11/02/18 02:13 Abnormal Lab Results - Last 24 Hours (Table) 11/02/18 11/02/18 Range/Units 02:13 03:17 Carbon Dioxide 32 H (22-30) mmol/L BUN 6 L (7-17) mg/dL Total Bilirubin 3.7 H (0.2-1.3) mg/dL AST 145 H (14-36) U/L ALT 422 H (9-52) U/L Alkaline Phosphatase 162 H (38-126) U/L Amylase <30 L (30-110) U/L Urine Protein Trace H (Negative) Urine Bilirubin 2+ H (Negative) Ur Leukocyte Esterase Small H (Negative) Urine WBC 7 H (0-5) /hpf Urine Mucus Moderate H (None) /hpf Diabetes panel 11/02/18 Range/Units 02:13 Sodium 139 (137-145) mmol/L Potassium 4.1 (3.5-5.1) mmol/L Chloride 98 (98-107) mmol/L Carbon Dioxide 32 H (22-30) mmol/L BUN 6 L (7-17) mg/dL Creatinine 0.70 (0.52-1.04) mg/dL Glucose 98 (74-99) mg/dL Calcium 9.7 (8.4-10.2) mg/dL AST 145 H (14-36) U/L ALT 422 H (9-52) U/L Alkaline Phosphatase 162 H (38-126) U/L Total Protein 8.2 (6.3-8.2) g/dL Albumin 4.8 (3.5-5.0) g/dL Calcium panel 11/02/18 Range/Units 02:13 Calcium 9.7 (8.4-10.2) mg/dL Albumin 4.8 (3.5-5.0) g/dL Pituitary panel 11/02/18 Range/Units 02:13 Sodium 139 (137-145) mmol/L Potassium 4.1 (3.5-5.1) mmol/L Chloride 98 (98-107) mmol/L Carbon Dioxide 32 H (22-30) mmol/L BUN 6 L (7-17) mg/dL Creatinine 0.70 (0.52-1.04) mg/dL Glucose 98 (74-99) mg/dL Calcium 9.7 (8.4-10.2) mg/dL Adrenal panel 11/02/18 Range/Units 02:13 Sodium 139 (137-145) mmol/L Potassium 4.1 (3.5-5.1) mmol/L Chloride 98 (98-107) mmol/L Carbon Dioxide 32 H (22-30) mmol/L BUN 6 L (7-17) mg/dL Creatinine 0.70 (0.52-1.04) mg/dL Glucose 98 (74-99) mg/dL Calcium 9.7 (8.4-10.2) mg/dL Total Bilirubin 3.7 H (0.2-1.3) mg/dL AST 145 H (14-36) U/L ALT 422 H (9-52) U/L Alkaline Phosphatase 162 H (38-126) U/L Total Protein 8.2 (6.3-8.2) g/dL Albumin 4.8 (3.5-5.0) g/dL <Aneudy Patel - Last Filed: 11/02/18 16:47> History of Present Illness History of present illness: As above. Patient has had pain and dark colored urine for the last 4-5 days. She has had episodes similar to this in the past however. Currently she feels better. Denies fevers. Labs noted. Await GI evaluation for clearance of CBD. We'll follow closely. Surgical - Exam Vital Signs Temp Pulse Resp BP Pulse Ox 98.1 F 58 L 20 131/93 100 11/02/18 01:04 11/02/18 01:04 11/02/18 01:04 11/02/18 01:04 11/02/18 01:04 Results - Labs 11/02/18 02:13 11/02/18 02:13 Abnormal Lab Results - Last 24 Hours (Table) 11/02/18 11/02/18 Range/Units 02:13 03:17 Carbon Dioxide 32 H (22-30) mmol/L BUN 6 L (7-17) mg/dL Total Bilirubin 3.7 H (0.2-1.3) mg/dL AST 145 H (14-36) U/L ALT 422 H (9-52) U/L Alkaline Phosphatase 162 H (38-126) U/L Amylase <30 L (30-110) U/L Urine Protein Trace H (Negative) Urine Bilirubin 2+ H (Negative) Ur Leukocyte Esterase Small H (Negative) Urine WBC 7 H (0-5) /hpf Urine Mucus Moderate H (None) /hpf Diabetes panel 11/02/18 Range/Units 02:13 Sodium 139 (137-145) mmol/L Potassium 4.1 (3.5-5.1) mmol/L Chloride 98 (98-107) mmol/L Carbon Dioxide 32 H (22-30) mmol/L BUN 6 L (7-17) mg/dL Creatinine 0.70 (0.52-1.04) mg/dL Glucose 98 (74-99) mg/dL Calcium 9.7 (8.4-10.2) mg/dL AST 145 H (14-36) U/L ALT 422 H (9-52) U/L Alkaline Phosphatase 162 H (38-126) U/L Total Protein 8.2 (6.3-8.2) g/dL Albumin 4.8 (3.5-5.0) g/dL Calcium panel 11/02/18 Range/Units 02:13 Calcium 9.7 (8.4-10.2) mg/dL Albumin 4.8 (3.5-5.0) g/dL Pituitary panel 11/02/18 Range/Units 02:13 Sodium 139 (137-145) mmol/L Potassium 4.1 (3.5-5.1) mmol/L Chloride 98 (98-107) mmol/L Carbon Dioxide 32 H (22-30) mmol/L BUN 6 L (7-17) mg/dL Creatinine 0.70 (0.52-1.04) mg/dL Glucose 98 (74-99) mg/dL Calcium 9.7 (8.4-10.2) mg/dL Adrenal panel 11/02/18 Range/Units 02:13 Sodium 139 (137-145) mmol/L Potassium 4.1 (3.5-5.1) mmol/L Chloride 98 (98-107) mmol/L Carbon Dioxide 32 H (22-30) mmol/L BUN 6 L (7-17) mg/dL Creatinine 0.70 (0.52-1.04) mg/dL Glucose 98 (74-99) mg/dL Calcium 9.7 (8.4-10.2) mg/dL Total Bilirubin 3.7 H (0.2-1.3) mg/dL AST 145 H (14-36) U/L ALT 422 H (9-52) U/L Alkaline Phosphatase 162 H (38-126) U/L Total Protein 8.2 (6.3-8.2) g/dL Albumin 4.8 (3.5-5.0) g/dL
[2018-11-02 19:04] LABS: Hepatitis A Antibody IgM Non-Reactive (Non-Reactive); Hepatitis B Core IgM Non-Reactive (Non-Reactive)
[2018-11-03] MEDS: HYDROmorphone 0.5 MG/0.5 ML SYRINGE IVP PRN ×4 (00:20→14:37)
[2018-11-03] MEDS: SODIUM CHLORIDE 0.9% 1,000 ML IV SCH ×2 (00:24→13:03)
[2018-11-03] MEDS: PIPERACILLIN-TAZOBACTAM 3.375 GM in SODIUM CHLORIDE 0.9% 100 ML IVPB SCH ×3 (06:01→20:28)
[2018-11-03] MEDS: PANTOPRAZOLE 40 MG/10 ML VIAL IVP SCH (08:12)
[2018-11-03 09:20] LABS: Basophils % (A) 0 %; Eosinophils # (A) 0.3 k/uL (0-0.7); Eosinophils % (A) 4 %; HCT 40.3 % (34.0-46.0); HGB 13.5 gm/dL (11.4-16.0); Lymphocytes # (A) 2.1 k/uL (1.0-4.8); Lymphocytes % (A) 28 %; MCH 30.6 pg (25.0-35.0); MCHC 33.4 g/dL (31.0-37.0); MCV 91.4 fL (80.0-100.0); Mean Platelet Volume 8.1; Monocytes # (A) 0.4 k/uL (0-1.0); Monocytes % (A) 5 %; Neutrophils # (A) 4.6 k/uL (1.3-7.7); Neutrophils % (A) 61 %; Platelet Count 204 k/uL (150-450); RBC 4.41 m/uL (3.80-5.40); RDW 13.2 % (11.5-15.5); WBC 7.5 k/uL (3.8-10.6)
--- NOTE | 2018-11-03 09:20 | P.PN ---
<Donna Aquino - Last Filed: 11/03/18 09:18> Subjective Progress Note Date: 11/03/18 CHIEF COMPLAINT: Acute cholecystitis HISTORY OF PRESENT ILLNESS: Patient examined this morning at the bedside. Patient continues to report epigastric pain but states it has improved since yesterday. She denies nausea or vomiting. She is NPO. Labs from this morning are pending. PHYSICAL EXAM: VITAL SIGNS: Reviewed. GENERAL: Well-developed in no acute distress. HEENT: No sclera icterus. Extraocular movements grossly intact. Moist buccal mucosa. Head is atraumatic, normocephalic. ABDOMEN: Soft. Nondistended. Tenderness upon palpation of epigastric region, improved since yesterday. NEUROLOGIC: Alert and oriented. Cranial nerves II through XII grossly intact. ASSESSMENT: 1. Abdominal pain, nausea, vomiting x 4 days 2. Acute cholecystitis, US reveals distended gallbladder with borderline wall thickening and sludge 3. Hyperbilirubinemia 4. Transaminitis 5. Severely dilated common bile duct measuring 1.1 cm PLAN: 1. NPO 2. Continue antibiotics 3. Patient scheduled for ERCP today with Dr. Joseph 4. Laparoscopic cholecystectomy once LFTs improve Nurse practitioner note has been reviewed by physician. Signing provider agrees with the documented findings, assessment, and plan of care. Objective - Vital Signs Vital signs: Vital Signs Temp 98.6 F 11/03/18 07:00 Pulse 64 11/03/18 07:00 Resp 16 11/03/18 07:00 BP 123/73 11/03/18 07:00 Pulse Ox 97 11/03/18 07:00 Intake & Output 11/02/18 11/03/18 11/03/18 18:59 06:59 18:59 Intake Total 540 Balance 540 Intake: Oral 540 Other: Voiding Method Toilet # Voids 1 2 - Labs CBC & Chem 7: 11/02/18 02:13 11/02/18 02:13 <Aneudy Patel - Last Filed: 11/03/18 14:47> Subjective As above. Patient still has elevation of bilirubin at 3.7. Await ERCP today. Further decision regarding cholecystectomy timing to follow. Objective - Vital Signs Vital signs: Vital Signs Temp 98.6 F 11/03/18 14:38 Pulse 65 11/03/18 14:38 Resp 16 11/03/18 14:38 BP 118/73 11/03/18 14:38 Pulse Ox 99 11/03/18 14:38 Intake & Output 11/02/18 11/03/18 11/03/18 18:59 06:59 18:59 Intake Total 540 600 Balance 540 600 Intake: IV 600 Sodium Chloride 0.9% 1, 600 000 ml @ 75 mls/hr IV . [id number] [facility] Rx#:[id number] Oral 540 Other: Voiding Method Toilet # Voids 1 2 2 - Labs CBC & Chem 7: 11/03/18 08:17 11/03/18 08:17 Labs: Abnormal Lab Results - Last 24 Hours (Table) 11/03/18 Range/Units 08:17 BUN 3 L (7-17) mg/dL Total Bilirubin 3.7 H (0.2-1.3) mg/dL AST 100 H (14-36) U/L ALT 285 H (9-52) U/L Alkaline Phosphatase 139 H (38-126) U/L
[2018-11-03 09:35] LABS: ALT 285 U/L (9-52); AST 100 U/L (14-36); Albumin 3.8 g/dL (3.5-5.0); Alkaline Phosphatase 139 U/L (38-126); Anion Gap 9 mmol/L; Blood Urea Nitrogen 3 mg/dL (7-17); Calcium 9.1 mg/dL (8.4-10.2); Carbon Dioxide 28 mmol/L (22-30); Chloride 102 mmol/L (98-107); Glucose 96 mg/dL (74-99); Potassium 4.1 mmol/L (3.5-5.1); Sodium 139 mmol/L (137-145); Total Bilirubin 3.7 mg/dL (0.2-1.3); Total Protein 6.7 g/dL (6.3-8.2)
--- NOTE | 2018-11-03 10:35 | P.PN ---
Subjective Progress Note Date: 11/03/18 This is a 23-year-old female patient of Dr. Conroy. Patient presented with complaints of increased abdominal pain. Patient reports that she's had issues with her gallbladder intermittently over the past 6 months but over the past 2 weeks has become increasingly worse and consistent. Patient did have appoi ntment with Dr. bout was unable to wait due to increased pain. Patient does have a past medical history of GERD, bronchitis, , anxiety, depression and previous smoker. Patient denies any significant cardiac history. Patient denies irregular heart rate. Patient denies blood clots. Patient denies any history of COPD. Gallbladder ultrasound completed showing distended gallbladder with stones. Severe dilation of CBD at 1.1 not definitively seen on the prior CT. Total bilirubin elevated at 3.7, AST 8145 ALT 422 and alkaline phosphatase 162. Surgical services consulted GI service is consulted. Patient started on zosyn for antibiotic. Patient currently nothing by mouth. At this time patient is resting comfortably in bed. Complains of some abdominal pain upon palpation. Patient denies any nausea or vomiting at this time. Patient denies any urinary burning or frequency. On 11/03/2018 patient is alert and oriented resting comfortably in bed. Patient does state some improvement with abdominal pain. Discussed case with GI services planning ERCP today. At this time patient denies chest pain or shortness of breath. Patient denies nausea vomiting or diarrhea. Patient denies any urinary burning or frequency. Objective - Vital Signs Vital signs: Vital Signs Temp 98.6 F 11/03/18 07:00 Pulse 64 11/03/18 07:00 Resp 16 11/03/18 07:00 BP 123/73 11/03/18 07:00 Pulse Ox 97 11/03/18 07:00 Intake & Output 11/02/18 11/03/18 11/03/18 18:59 06:59 18:59 Intake Total 540 Balance 540 Intake: Oral 540 Other: Voiding Method Toilet # Voids 1 2 - Exam Head normocephalic Neck supple Lungs clear to auscultation bilaterally no wheezing or crackles Heart regular rate and rhythm S1-S2, no rub or gallop Abdomen abdominal tenderness to palpation. Extremities no edema Neuro alert and orientated to 3 - Labs CBC & Chem 7: 11/03/18 08:17 11/03/18 08:17 Labs: Abnormal Lab Results - Last 24 Hours (Table) 11/03/18 Range/Units 08:17 BUN 3 L (7-17) mg/dL Total Bilirubin 3.7 H (0.2-1.3) mg/dL AST 100 H (14-36) U/L ALT 285 H (9-52) U/L Alkaline Phosphatase 139 H (38-126) U/L Assessment and Plan Assessment: 1. Acute cholecystitis with hyperbilirubinemia. Gallbladder ultrasound completed showing distended gallbladder with borderline wall thickening and sludge but no stones. Severe dilation of CBD at 1.1, not definitely seen on prior CT. ALT 422 and alkaline phosphatase 162. Patient started on Zosyn. GI and surgical service is consulted. Patient currently nothing by mouth. Normal saline at 75. Discussed case with GI services, planning ERCP today for . 2. History of GERD 3. History of bronchitis 4. History of anxiety and depression 5. History of 6. Urinary tract infection. UA showing small amount of leukocyte Estrace. Patient currently on Zosyn. Urine culture ordered DVT prophylaxis SCDs until evaluated by surgical services. GI prophylaxis Protonix I performed an examination of the patient and discussed their management with the Nurse Practitioner. I have reviewed the Nurse Practitioner's notes and agree with the documented findings and plan of care
[2018-11-03] MEDS ORDERED: INDOMETHACIN 50MG SUPPOSITORY RECTAL ONE (12:30)
[2018-11-03] MEDS ORDERED: LIDOCAINE 1% INJ 10MG/ML (20 ML MDV) ONE (17:40)
[2018-11-03] MEDS ORDERED: PROPOFOL 10 MG/ML 20 ML VIAL IV ONE (17:40)
[2018-11-03] MEDS ORDERED: SUCCINYLCHOLINE CHLORIDE 100 MG/5 ML SYR IV ONE (17:40)
[2018-11-03] MEDS ORDERED: fentaNYL (PF) 50 MCG/ML 2 ML AMP ONE (17:40)
[2018-11-03] MEDS ORDERED: MIDAZOLAM 2 MG/2 ML VIAL ONE (17:40)
[2018-11-03] MEDS ORDERED: IV FLUID CONTINUATION 1,000 ML IV ONE (17:40)
[2018-11-03] MEDS ORDERED: IOPAMIDOL-300 50ML BTL INJ ONE ×2 (18:06→18:20)
[2018-11-03] MEDS ORDERED: SODIUM CHLORIDE 0.9% 500 ML IV ONE (18:40)
[2018-11-03] MEDS: LACTATED RINGERS 1,000 ML IV SCH (18:52)
--- NOTE | 2018-11-03 19:48 | P.PCN ---
Date of Procedure: 11/03/18 Description of Procedure: Brief history: 23-year-old female admitted with acute right upper quadrant abdominal pain with a history of cholelithiasis. Patient has been experiencing intermittent right upper quadrant pain for 6 months. Consult requested for elevated bilirubin and dilated common bile duct. White count 8.6. Hemoglobin 15.4. Platelet 265. Total bilirubin 3.7. AST 145. ALT 422. AP 162. Lipase 27. HCG not detected. Ultrasound distended gallbladder borderline wall thickening sludge. Severe dilation CBD 1.1 cm. No fever or chills. She is lost 100 pounds over the past year with diet pills. Liver function tests 10 days ago were within normal limits. CT abdomen one month ago questionable appearance of periportal edema. Ultrasound 1 month ago reported cholelithiasis. CBD 0.3 cm. no history of alcoholism changes in medications. No history of known liver disorders or hepatitis.. Procedure performed: ERCP with cholangiogram, sphincterotomy and balloon sweep of the CBD Preoperative diagnoses: Elevated bilirubin, elevated liver enzymes, suspected choledocholithiasis, abnormal imaging, dilated CBD IV sedation per anesthesia: Estimated blood loss: Minimal. Procedure: After informed consent was obtained from the patient and after the risks benefits and complications including bleeding perforation and pancreatitis explained in detail the patient was brought into the endoscopy unit. The patient was placed in prone position and IV conscious sedation was administered by anesthesia under continuous monitoring. The Olympus side-viewing duodenoscope was then inserted into the mouth and esophagus intubated without any difficulty. The scope was gradually advanced into the stomach and duodenum. The major papilla was identified without any difficulty. A sphincterotome was used to cannulate the ampulla and a wire was passed into the common bile duct and into the hepatic ducts. Dye was then injected and was significant for a diffusely dilated common bile duct approximately 11 mm in size. There did appear to be a filling defect in the mid CBD suggestive of a stone. An 11 mm sphincterotomy was then performed. The sphincterotome was then removed over the wire and exchanged for a biliary balloon which was passed over the wire into the common bile duct and common hepatic duct into the bifurcation. Inflation of the balloon and multiple sweeps of the duct with the balloon inflated first to 8.5 mm and then to 11.5 mm was performed. Gallbladder sludge and a small stone were seen. There was good biliary flow after the procedure. The pancreatic duct was not cannulated or injected. The patient tolerated the procedure well. Impression: 1. ERCP with cholangiogram, sphincterotomy and balloon sweep of the common bile duct with stone and sludge removed. 2. Choledocholithiasis. Recommendations: The findings of this examination were discussed with the patient as well as her family. Okay for liquid diet tonight, advance as tolerated to low-fat diet. Monitor liver enzymes. Watch for signs or symptoms of pancreatitis. Continue supportive care.
[2018-11-04] MEDS: HYDROmorphone 0.5 MG/0.5 ML SYRINGE IVP PRN ×2 (02:21→10:31)
[2018-11-04] MEDS: PIPERACILLIN-TAZOBACTAM 3.375 GM in SODIUM CHLORIDE 0.9% 100 ML IVPB SCH (05:21)
[2018-11-04 07:40] VITALS: BP 116/74; PULSE 63; RESP 14; TEMP 98.1
[2018-11-04 08:01] LABS: Basophils % (A) 0 %; Eosinophils # (A) 0.2 k/uL (0-0.7); Eosinophils % (A) 2 %; HCT 38.9 % (34.0-46.0); HGB 13.3 gm/dL (11.4-16.0); Lymphocytes # (A) 1.9 k/uL (1.0-4.8); Lymphocytes % (A) 19 %; MCH 30.7 pg (25.0-35.0); MCHC 34.2 g/dL (31.0-37.0); MCV 89.6 fL (80.0-100.0); Mean Platelet Volume 7.8; Monocytes # (A) 0.6 k/uL (0-1.0); Monocytes % (A) 6 %; Neutrophils # (A) 7.1 k/uL (1.3-7.7); Neutrophils % (A) 71 %; Platelet Count 240 k/uL (150-450); RBC 4.34 m/uL (3.80-5.40); RDW 12.9 % (11.5-15.5)
[2018-11-04 08:13] LABS: ALT 258 U/L (9-52); AST 82 U/L (14-36); Albumin 4.1 g/dL (3.5-5.0); Alkaline Phosphatase 119 U/L (38-126); Anion Gap 10 mmol/L; Blood Urea Nitrogen 5 mg/dL (7-17); Carbon Dioxide 26 mmol/L (22-30); Chloride 105 mmol/L (98-107); Glucose 104 mg/dL (74-99); Potassium 3.5 mmol/L (3.5-5.1); Sodium 141 mmol/L (137-145); Total Bilirubin 1.4 mg/dL (0.2-1.3); Total Protein 6.9 g/dL (6.3-8.2)
[2018-11-04] MEDS: PANTOPRAZOLE 40 MG/10 ML VIAL IVP SCH (08:36)
[2018-11-04] MEDS: SODIUM CHLORIDE 0.9% 1,000 ML IV SCH (08:37)
--- NOTE | 2018-11-04 10:12 | P.PN ---
Subjective Progress Note Date: 11/04/18 Principal diagnosis: Choledocholithiasis Patient doing better today. Her pain is improved. Her bilirubin is down to 1.4. Objective - Vital Signs Vital signs: Vital Signs Temp 98.1 F 11/04/18 07:00 Pulse 63 11/04/18 07:00 Resp 14 11/04/18 07:00 BP 116/74 11/04/18 07:00 Pulse Ox 100 11/04/18 07:00 Intake & Output 11/03/18 11/04/18 11/04/18 18:59 06:59 18:59 Intake Total 1100 100 Balance 1100 100 Intake: IV 1100 100 Sodium Chloride 0.9% 1, 600 000 ml @ 75 mls/hr IV . [id number] Rx#:[id number] Other: Voiding Method Toilet # Voids 2 2 - Exam Abdomen: Soft, nondistended, minimal epigastric tenderness - Labs CBC & Chem 7: 11/04/18 07:12 11/04/18 07:12 Labs: Abnormal Lab Results - Last 24 Hours (Table) 11/04/18 Range/Units 07:12 BUN 5 L (7-17) mg/dL Glucose 104 H (74-99) mg/dL Total Bilirubin 1.4 H (0.2-1.3) mg/dL AST 82 H (14-36) U/L ALT 258 H (9-52) U/L Microbiology - Last 24 Hours (Table) 11/03/18 13:05 Urine Culture - Preliminary Urine,Clean Catch Assessment and Plan (1) Choledocholithiasis with acute cholecystitis Narrative/Plan: Patient doing well today. Biliary obstruction improved. ERCP results noted. Options of discharge today versus repeat labs and possible cholecystectomy discussed with patient. She will consider and notify me of her decision. Current Visit: Yes Status: Acute Code(s): K80.42 - CALCULUS OF BILE DUCT W ACUTE CHOLECYSTITIS W/O OBSTRUCTION SNOMED Code(s): 86223761
--- NOTE | 2018-11-04 12:01 | P.DS ---
Providers Date of admission: 11/02/18 04:17 Expected date of discharge: 11/04/18 Attending physician: Stephane Diaz Consults: 11/02/18 04:15 Consult Physician Routine Consulting Provider: Violette Oropeza Consult Reason/Comments: Hyperbilirubinemia, dilated common bile duct Do you want consulting provider notified?: Yes Consult Physician Urgent Consulting Provider: Richie Rodriguez Consult Reason/Comments: Acute cholecystitis, hyperbilirubinemia Do you want consulting provider notified?: Already Contacted Primary care physician: Aleida Roque [facility] Course: Discharge diagnosis 1. Acute cholecystitis with hyperbilirubinemia. Amylase less than 30. Lipase 27. Gallbladder ultrasound completed showing distended gallbladder with borderline wall thickening and sludge but no stones. Severe dilation of CBD at 1.1, not definitely seen on prior CT. ALT 422 and alkaline phosphatase 162. Patient started on Zosyn. GI and surgical service is consulted. Patient currently nothing by mouth. Normal saline at 75. ERCP completed with stone and sludge removed. Patient has been cleared for discharge from GI services. Per surgical services planning outpatient cholecystectomy per patient decision. Patient advised to follow-up closely with surgical services and GI services. Repeat CMP ordered for 2 days. Tylenol threes ordered for pain outpatient 2. History of GERD 3. History of bronchitis 4. History of anxiety and depression 5. History of 6. Urinary tract infection. UA showing small amount of leukocyte Estrace. Patient currently on Zosyn. Urine culture ordered. Patient will be discharged on Ceftin for 7 days Hospital course This is a 23-year-old female patient of Dr. Conroy. Patient presented with complaints of increased abdominal pain. Patient reports that she's had issues with her gallbladder intermittently over the past 6 months but over the past 2 weeks has become increasingly worse and consistent. Patient did have appoint ment with Dr. levine was unable to wait due to increased pain. Patient does have a past medical history of GERD, bronchitis, , anxiety, depression and previous smoker. Patient denies any significant cardiac history. Patient denies irregular heart rate. Patient denies blood clots. Patient denies any history of COPD. Gallbladder ultrasound completed showing distended gallbladder with stones. Severe dilation of CBD at 1.1 not definitively seen on the prior CT. Total bilirubin elevated at 3.7, AST 8145 ALT 422 and alkaline phosphatase 162. Surgical services consulted GI service is consulted. Patient started on zosyn for antibiotic. Patient currently nothing by mouth. At this time patient is resting comfortably in bed. Complains of some abdominal pain upon palpation. Patient denies any nausea or vomiting at this time. Patient denies any urinary burning or frequency. On 11/03/2018 patient is alert and oriented resting comfortably in bed. Patient does state some improvement with abdominal pain. Discussed case with GI services planning ERCP today. At this time patient denies chest pain or shortness of breath. Patient denies nausea vomiting or diarrhea. Patient d enies any urinary burning or frequency. On 11/04/2018 patient is alert and oriented 3. Patient underwent ERCP with sludge and stone removal per GI services. Patient at this time pending outpatient cholecystectomy with surgical services. Patient requesting to be discharged home. She reports some improvement with abdominal pain. Liver enzymes are trending down. She reports improvement with abdominal pain. Will discharge patient home on Ceftin for 7 days. Will order CMP for 3 days and Tylenol 3 for pain. Patient advised to follow-up closely with surgical services for outpatient laparoscopic cholecystectomy. At this time patient denies chest pain or shortness of breath. Patient denies nausea vomiting or diarrhea. Patient denies any urinary burning or frequency I performed an examination of the patient and discussed their management with the Nurse Practitioner. I have reviewed the Nurse Practitioner's notes and agree with the documented findings and plan of care Patient Condition at Discharge: Stable Plan - Discharge Summary Discharge Rx Participant: No New Discharge Prescriptions: New Cefuroxime Axetil [Ceftin] 500 mg PO BID 7 Days #14 tab Acetaminophen with Codeine [Tylenol w/codeine #3] 1 tab PO Q8HR PRN 3 Days #9 tab PRN Reason: Pain Continue Albuterol Inhaler [Ventolin Hfa Inhaler] 1 - 2 puff INHALATION RT-Q6H PRN #1 inhaler PRN Reason: Shortness Of Breath Discontinued Phentermine HCl [Adipex-P] 37.5 mg PO DAILY Butalb/APAP/Caff 50-325-40Mg [Fioricet 50-325-40] 1 tab PO DAILY PRN PRN Reason: Migraine Headache Discharge Medication List Albuterol Inhaler [Ventolin Hfa Inhaler] 1 - 2 puff INHALATION RT-Q6H PRN #1 inhaler 05/11/18 [Rx] Acetaminophen with Codeine [Tylenol w/codeine #3] 1 tab PO Q8HR PRN 3 Days #9 tab 11/04/18 [Rx] Cefuroxime Axetil [Ceftin] 500 mg PO BID 7 Days #14 tab 11/04/18 [Rx] Follow up Appointment(s)/Referral(s): Aleida Roque DO [Primary Care Provider] - 1-2 days Richie Rodriguez MD [STAFF PHYSICIAN] - 1 Week Moe Joseph MD [STAFF PHYSICIAN] - 1 Week Ambulatory/Diagnostic Orders: Comprehensive Metabolic Panel [LAB.AMB] Time Frame: 3 Days, Location: None Selected Patient Instructions/Handouts: ERCP (Endoscopic Retrograde Cholangiopancreatography) (DC) Activity/Diet/Wound Care/Special Instructions: Activity as tolerated Diet advance as tolerated Discharge Disposition: HOME SELF-CARE
[2018-11-04] MEDS: LACTATED RINGERS 1,000 ML IV SCH (12:37)
--- NOTE | 2018-11-04 13:25 | FL ---
EXAMINATION TYPE: FL ERCP biliary duct only DATE OF EXAM: 11/03/2018 COMPARISON: NONE HISTORY: Cholelithiasis Fluoroscopy support supplied to the referring clinician. See dictated report from 32 seconds fluoros copy time, 5 intraoperative images, see dictated report gastroenterology
== END 2018-11-04 12:44 | disposition home or self-care (01) | DRG 445 ==
LOC: EC 00:59 → 4SSUR 04:17
PROVIDERS: ADMIT Internal Medicine; ATTEND Internal Medicine
PROC: BF131ZZ Fluoroscopy of Gallbladder and Bile Ducts using Low Osmolar Contrast (ICD-10-PCS; 2018-11-03)
PROC: 0FC98ZZ Extirpation of Matter from Common Bile Duct, Via Natural or Artificial Opening Endoscopic (ICD-10-PCS; principal; 2018-11-03 13:30)
DX: K80.42 Calculus of bile duct with acute cholecystitis without obstruction (principal); N39.0 Urinary tract infection, site not specified; K21.9 Gastro-esophageal reflux disease without esophagitis; F41.9 Anxiety disorder, unspecified; F32.9 Major depressive disorder, single episode, unspecified; E66.9 Obesity, unspecified; Z68.29 Body mass index [BMI] 29.0-29.9, adult; Z87.891 Personal history of nicotine dependence; Z79.899 Other long term (current) drug therapy; Z82.49 Family history of ischemic heart disease and other diseases of the circulatory system; Z83.438 Family history of other disorder of lipoprotein metabolism and other lipidemia
CPT/HCPCS: 36415; 43277; 74328; 76705; 80053; 80074; 81001; 81025; 82150; 83690; 85025; 85610; 87086; 96365; 96375; 99285

== ENCOUNTER 2018-12-01 09:20 | Day surgery (SDC) | payer BC, OTHER ==
[2018-11-28 15:17] VITALS: BMI 29.5
[~2018-12-01 09:20] MED LIST: DEXAMETHASONE SOD PHOSPHATE 10 MG/ML 1 ML VIAL IV ONE; HEPARIN SODIUM,PORCINE 5,000 UNIT/ML 1 ML VIAL SQ ONE; LACTATED RINGERS 1,000 ML IV SCH; MIDAZOLAM 2 MG/2 ML VIAL IV PRN; SCOPOLAMINE 1.5MG/72HR PATCH TRANSDERM ONE; ceFAZolin IN SWFI 2 GM/20 ML SYRINGE IVP ONE
[2018-12-01] MEDS: ONDANSETRON 4 MG/2 ML VIAL IVP ONE ×2 (09:49→11:34)
--- NOTE | 2018-12-01 10:00 | P.GSHP ---
History of Present Illness H&P Date: 12/01/18 Chief Complaint: Cholelithiasis This 23-year-old female who presents today for laparoscopic cholecystectomy. Patient's had complaints of right quadrant pain. She is found have cholelithiasis. Past Medical History Past Medical History: GERD/Reflux Additional Past Medical History / Comment(s): Frequent bronchitis, gall stones History of Any Multi-Drug Resistant Organisms: None Reported Past Surgical History: Section Additional Past Surgical History / Comment(s): [place] teeth extractions. ERCP- 11/02/18 Past Anesthesia/Blood Transfusion Reactions: No Reported Reaction Smoking Status: Current every day smoker - Past Family History Mother Family Medical History: No Reported History Additional Family Medical History / Comment(s): Mother is healthy Father Family Medical History: Hyperlipidemia, Hypertension Additional Family Medical History / Comment(s): psoriasis Medications and Allergies Home Medications Medication Instructions Recorded Confirmed Type Phentermine HCl [Adipex-P] 37.5 mg PO DAILY 11/28/18 12/01/18 History Allergies Allergy/AdvReac Type Severity Reaction Status Date / Time No Known Allergies Allergy Verified 11/28/18 15:08 Surgical - Exam Vital Signs Temp Pulse Resp BP Pulse Ox 98.3 F 77 17 124/83 98 12/01/18 09:47 12/01/18 09:47 12/01/18 09:47 12/01/18 09:47 12/01/18 09:47 - General well developed, well nourished - Eyes PERRL - ENT normal pinna - Neck no masses - Respiratory normal expansion - Cardiovascular Rhythm: regular - Abdomen Abdomen: soft, non tender Assessment and Plan Assessment: Cholelithiasis. We'll perform laparoscopic cholecystectomy.
[2018-12-01] MEDS ORDERED: MIDAZOLAM 2 MG/2 ML VIAL ONE (10:24)
[2018-12-01] MEDS ORDERED: PROPOFOL 10 MG/ML 20 ML VIAL IV ONE (10:24)
[2018-12-01] MEDS ORDERED: NEOSTIGMINE 1 MG/ML 10 ML VIAL ONE (10:24)
[2018-12-01] MEDS ORDERED: SUCCINYLCHOLINE CHLORIDE 100 MG/5 ML SYR IV ONE (10:24)
[2018-12-01] MEDS ORDERED: LIDOCAINE 1% INJ 10MG/ML (20 ML MDV) ONE (10:24)
[2018-12-01] MEDS ORDERED: GLYCOPYRROLATE 0.2 MG/ML 2 ML VIAL ONE (10:24)
[2018-12-01] MEDS ORDERED: ROCURONIUM BROMIDE 10 MG/ML 10 ML VIAL IV ONE (10:24)
[2018-12-01] MEDS ORDERED: fentaNYL (PF) 50 MCG/ML 2 ML AMP ONE (10:24)
[2018-12-01] MEDS ORDERED: BUPIVACAINE (PF) 0.5% 30 ML VIAL SQ ONE (10:52)
[2018-12-01 11:24] VITALS: TEMP 97.6
[2018-12-01] MEDS: HYDROmorphone 0.5 MG/0.5 ML SYRINGE IVP PRN ×4 (11:34→11:58)
[2018-12-01] MEDS ORDERED: diphenhydrAMINE 50 MG/ML 1 ML VIAL IVP ONE (11:51)
[2018-12-01] MEDS ORDERED: LACTATED RINGERS 1,000 ML IV ONE (12:00)
[2018-12-01 13:11] VITALS: BP 108/65; PULSE 60; RESP 18
--- NOTE | 2018-12-11 09:01 | P.OP ---
Date of Procedure: 12/01/18 Preoperative Diagnosis: cholecystitis Postoperative Diagnosis: cholecystitis Procedure(s) Performed: laproscopic [facility]cystectomy [facility]: Richie Rodriguez Description of Procedure: The patient was placed on the operating table. The patient received a general endotracheal tube anesthesia. The patients abdomen was prepped and draped in the usual sterile fashion. Through an infraumbilical stab incision, the fascia of the anterior abdominal wall was grasped with a pair of Kochers and then the Veress needle was placed in the peritoneal cavity. Position of the Veress needle was confirmed with positive drop test. The abdomen was then insufflated. After adequate insufflation, the 10 mm trocar was placed in the peritoneal cavity. Following this the laparoscope was placed in the peritoneal cavity. The patient was placed in the head-up, right side up position and then a 5 mm trocar was placed in the right lateral and right subcostal posi tion under direct visualization. A 8 mm trocar was placed in the epigastric position. The gallbladder was grasped in the fundus and infundibulum. Traction on the gallbladder was placed in the lateral and the cephalad positions. The triangle of Calot was visualized.. The cystic duct was bluntly dissected until the union of the cystic duct and common bile duct was seen. A critical view of safety was achieved. The cystic duct was then divided and sealed with the Harmonic scissors. A PDS Endoloop was then placed throughout the cystic duct stump. The cystic artery divided and sealed with the Harmonic scissors. The gallbladder was then removed from the liver bed using Harmonic scissors. The gallbladder was then extracted through the epigastric port site. Operative field was checked for any bleeding spots and Harmonic scissors was used to coagulate the liver bed. The abdomen was irrigated. The trocars were removed. The skin was closed using interrupted 3-0 Vicryl suture. Dermabond dressing were applied. The patient tolerated the procedure well.
== END 2018-12-01 13:55 | disposition home or self-care (01) ==
LOC: OR 09:20
PROVIDERS: ATTEND Surgery
DX: K81.1 Chronic cholecystitis (principal); K21.9 Gastro-esophageal reflux disease without esophagitis; Z79.899 Other long term (current) drug therapy; F17.210 Nicotine dependence, cigarettes, uncomplicated
CPT/HCPCS: 81025; 88304; 47562; J2250; J1200; J1644; J1100; J2710; J2405; J2001; J3010; J0330; J2704; J1170; J0690

== ENCOUNTER 2019-11-03 13:33 | Emergency (ER) | payer BC, OTHER ==
[2019-11-03 13:46] VITALS: TEMP 98
--- NOTE | 2019-11-03 14:04 | ED ---
Abdominal Pain HPI - General Chief Complaint: Abdominal Pain Stated Complaint: abd pain Time Seen by Provider: 11/03/19 13:51 Source: patient Mode of arrival: ambulatory Limitations: no limitations - History of Present Illness Initial Comments: Patient is a 24-year-old female presenting to the emergency Department with complaints of lower abdominal pain and cramping as well as heavy bleeding for the past few days. Patient states her periods have become very irregular and lengthen the past few months. She states yesterday she went through 6 "super" tampons. Patient states that this pain started a few days ago and has been intermittent. She describes it as different from her normal period cramping. Patient currently has an IUD in place for 3 years. She has history of C- section, cholecystectomy, no other abdominal surgeries. She denies having fever, chills, nausea, vomiting, diarrhea. Her last pelvic exam by her FERMENTATION MANAGER was one year ago and everything was normal. She denies being at this time secondary to the IUD. She has no concerns for STDs. She denies dysuria, increased frequency, vaginal discharge. She has no other complaints at this time. Upon arrival to the ER, her vital signs are stable. - Related Data Home Medications Medication Instructions Recorded Confirmed Phentermine HCl [Adipex-P] 37.5 mg PO DAILY 11/28/18 12/01/18 Previous Rx's Medication Instructions Recorded Docusate [Colace] 100 mg PO BID #20 capsule 12/01/18 HYDROcodone/APAP 7.5-325MG [[place] 1 tab PO Q6HR PRN 3 Days #10 tab 12/01/18 7.5-325] Allergies Allergy/AdvReac Type Severity Reaction Status Date / Time No Known Allergies Allergy Verified 11/03/19 13:46 Review of Systems ROS Statement: Those systems with pertinent positive or pertinent negative responses have been documented in the HPI. ROS Other: All systems not noted in ROS Statement are negative. Past Medical History Past Medical History: GERD/Reflux, Rheumatoid Arthritis (RA) Additional Past Medical History / Comment(s): Frequent bronchitis, gall stones History of Any Multi-Drug Resistant Organisms: None Reported Past Surgical History: Section, Cholecystectomy Additional Past Surgical History / Comment(s): [place] teeth extractions. ERCP- Past Anesthesia/Blood Transfusion Reactions: No Reported Reaction Past Psychological History: Anxiety, Depression Smoking Status: Current every day smoker Past Alcohol Use History: None Reported Past Drug Use History: None Reported - Past Family History Mother Family Medical History: No Reported History Additional Family Medical History / Comment(s): Mother is healthy Father Family Medical History: Hyperlipidemia, Hypertension Additional Family Medical History / Comment(s): psoriasis General Exam - General Exam Comments Initial Comments: GENERAL: Well-appearing, well-nourished and in no acute distress. HEAD: Atraumatic, normocephalic. EYES: Pupils equal round and reactive to light, extraocular movements intact, sclera anicteric, conjunctiva are normal. ENT: TMs normal, nares patent, oropharynx clear without exudates. Moist mucous membranes. NECK: Normal range of motion, supple without lymphadenopathy or JVD. LUNGS: Breath sounds clear to auscultation bilaterally and equal. No wheezes rales or rhonchi. HEART: Regular rate and rhythm without murmurs, rubs or gallops. ABDOMEN: Mild bilateral lower pelvic tenderness, suprapubic. Soft, normoactive bowel sounds. No guarding, no rebound. No masses appreciated. : Deferred EXTREMITIES: Normal range of motion, no pitting or edema. No clubbing or cyanosis. NEUROLOGICAL: Normal speech, normal gait. PSYCH: Normal mood, normal affect. SKIN: Warm, Dry, normal turgor, no rashes or lesions noted. Limitations: no limitations External exam: Present: normal external exam Speculum exam: Present: vaginal bleeding, other (No IUD string noted). Absent: vaginal discharge, cervical discharge, foreign body By manual exam: Present: normal by manual exam Course Vital Signs 11/03/19 11/03/19 13:42 15:25 Temperature 98 F Pulse Rate 74 71 Respiratory 18 16 Rate Blood Pressure 120/83 123/71 O2 Sat by Pulse 100 100 Oximetry Medical Decision Making - Medical Decision Making Patient is a 24-year-old female presenting with lower abdominal cramping, increase in normal menstruation flow. Denies being at this time secondary to IUD. Vitals are stable upon arrival. UA shows no signs of infection, hCG is not detected. Ultrasound reveals no evidence for ovarian torsion. Does show evidence for IUD. I discussed with patient that her symptoms are most likely to dysmenorrhea. I suggested she follow up with her FERMENTATION MANAGER. Patient is agreement with this plan of care. She is stable for discharge. Return parameters were discussed with the patient she verbalized understanding. Case discussed with Dr. Navarro. - Lab Data Lab Results 11/03/19 11/03/19 Range/Units 14:05 14:05 Urine Color Yellow Urine Appearance Clear (Clear) Urine pH 5.5 (5.0-8.0) Ur Specific [place] 1.028 (1.001-1.035) Urine Protein 1+ H (Negative) Urine Glucose (UA) Negative (Negative) Urine Ketones Negative (Negative) Urine Blood Moderate H (Negative) Urine Nitrite Negative (Negative) Urine Bilirubin Negative (Negative) Urine Urobilinogen <2.0 (<2.0) mg/dL Ur Leukocyte Esterase Negative (Negative) Urine RBC 2 (0-5) /hpf Urine WBC 4 (0-5) /hpf Ur Squamous Epith Cells 2 (0-4) /hpf Urine Mucus Moderate H (None) /hpf Urine HCG, Qual Not Detected (Not Detectd) Disposition Clinical Impression: Bilateral lower abdominal cramping, Dysmenorrhea Disposition: HOME SELF-CARE Condition: Stable Instructions (If sedation given, give patient instructions): Dysmenorrhea (ED) Additional Instructions: Please return to the Emergency Department if symptoms worsen or any other concerns. Continue with ibuprofen for cramps in the lower abdominal pain. Follow-up with FERMENTATION MANAGER as discussed. Is patient prescribed a controlled substance at d/c from ED?: No Referrals: Aleida Roque DO [Primary Care Provider] - 1-2 days
[2019-11-03 14:29] LABS: Appearance,Urine Clear (Clear); Bilirubin,Urine Negative (Negative); Blood,Urine Moderate (Negative); Color,Urine Yellow; Glucose,Urine (UA) Negative (Negative); Ketones,Urine Negative (Negative); Leukocyte Esterase,Urine Negative (Negative); Mucus,Urine Moderate /hpf; Nitrite,Urine Negative (Negative); PH, Urine 5.5 (5.0-8.0); Protein,Urine 1+ (Negative); RBC,Urine 2 /hpf (0-5); Specific Gravity,Urine 1.028 (1.001-1.035); Squamous Epithelial Cell,Urine 2 /hpf (0-4); Urobilinogen,Urine <2.0 mg/dL (<2.0); WBC,Urine 4 /hpf (0-5)
--- NOTE | 2019-11-03 14:54 | US ---
EXAMINATION TYPE: US pelvis transvaginal plus Dopplers DATE OF EXAM: 11/03/2019 COMPARISON: CT 09/25/2018 CLINICAL HISTORY: 24-year-old female lower pelvic pain, increase bleeding. Intermittent pelvic pain a nd irregular bleeding x 2 months, patient has IUD, 1, para 1, history of c-sections. TECHNIQUE: Transvaginal ER exam. Color Doppler and spectral waveform analysis of the ovarian arteries and veins. Date of LMP: Patient states last regular period was 2019 FINDINGS: EXAM MEASUREMENTS: Uterus: 7.3 x 3.0 x 3.7 cm Endometrial Stripe: 0.3 cm Right Ovary: 2.6 x 1.5 x 2.6 cm for a volume of 5.2 mL. Left Ovary: 3.1 x 1.8 x 1.9 cm for a volume of 5.5 mL. 1. Uterus: 0.6 x 0.5 x 0.9cm echogenic shadowing focus along the anterior lower uterine segment like ly relating to site of prior section. These calcifications were present on the patient's 09/09 CT. 2. Endometrium: limited visualization of IUD. A few bright punctate echoes are present along the end ometrial stripe but no shadowing is seen. An IUD was visualized on the patient's 2018 CT. 3. Right Ovary: wnl 4. Left Ovary: wnl Spectral, color and waveform doppler imaging shows good arterial and venous flow within the ovaries ; there is no evidence for ovarian torsion. 5. Bilateral Adnexa: wnl 6. Posterior cul-de-sac: wnl IMPRESSION: 1. A few bright punctate echoes are present along the endometrial stripe and could represent calcific ations related to prior infection or instrumentation. Markers relating to an uncommonly used IUD is d ifficult to exclude. This does not have the typical sonographic appearance of an IUD and further clin ical correlation is recommended. 2. No sonographic evidence for ovarian torsion.
[2019-11-03 15:26] VITALS: BP 123/71; PULSE 71; RESP 16
== END 2019-11-03 15:25 | disposition home or self-care (01) ==
LOC: EC 13:33
DX: R10.30 Lower abdominal pain, unspecified (principal); N94.6 Dysmenorrhea, unspecified; F17.200 Nicotine dependence, unspecified, uncomplicated; Z90.49 Acquired absence of other specified parts of digestive tract; Z97.5 Presence of (intrauterine) contraceptive device
CPT/HCPCS: 76830; 81001; 81025; 93975; 99284

== ENCOUNTER → 2021-02-22 | Outpatient (CLI) | payer BC, OTHER ==
--- NOTE | 2021-02-22 12:36 | XR ---
EXAMINATION TYPE: XR foot limited RT DATE OF EXAM: 02/22/2021 COMPARISON: NONE HISTORY: 25-year-old female trauma, pain TECHNIQUE: 2 views FINDINGS: Faint linear debris measuring up to 4 mm projecting along the plantar and lateral midfoot soft tissue s, refer to arrows on images. No acute fracture, subluxation, dislocation. Joint spaces throughout ar e maintained. IMPRESSION: 1. No acute osseous abnormality seen. 2. However, there is faint linear debris measuring up to 4 mm projecting along the plantar and latera l mid foot soft tissues. Correlate for external debris versus retained foreign body material.
== END | disposition home or self-care (01) ==
LOC: RADXRMAIN 11:31
PROVIDERS: ATTEND Internal Medicine
DX: S99.821A Other specified injuries of right foot, initial encounter (principal); X58.XXXA Exposure to other specified factors, initial encounter

== ENCOUNTER 2021-09-26 17:04 | Inpatient (IN) | payer BC, OTHER ==
[2021-09-26] MEDS ORDERED: NALOXONE 0.4 MG/ML 1 ML VIAL IVP STA (17:26)
[2021-09-26] MEDS ORDERED: SODIUM CHLORIDE 0.9% 1,000 ML IV STA (17:28)
--- NOTE | 2021-09-26 17:29 | ED ---
General Adult HPI - General Chief complaint: Overdose Stated complaint: mental health Time Seen by Provider: 09/26/21 17:17 Source: patient Mode of arrival: EMS Limitations: no limitations - History of Present Illness Initial comments: Dictation was produced using [employer] dictation software. please excuse any grammatical, word or spelling errors. Chief Complaint: 26-year-old female presents emergency department for Zanaflex overdose History of Present Illness: Patient 26-year-old female she took 30 tablets of 4 mg Zanaflex at an unknown time. She is brought in by EMS. Patient states she is depressed with her life and tried to end it. She also quickly drank 5 alcoholic seltzer drinks just prior to arrival. Patient has a calm patient at this time. EMS reports the patient is lethargic at the bedside. Denies any homicidal ideation. The ROS documented in this emergency department record has been reviewed and confirmed by me. Those systems with pertinent positive or negative responses have been documented in the HPI. All other systems are other negative and/or noncontributory. PHYSICAL EXAM: General Impression: Alert and oriented x3, sleepy but arousable HEENT: Normocephalic atraumatic, extra-ocular movements intact, pupils equal and reactive to light bilaterally, mucous membranes moist. Cardiovascular: Heart regular rate and rhythm Chest: Able to complete full sentences, no retractions, no tachypnea Abdomen: abdomen soft, non-tender, non-distended, no organomegaly Musculoskeletal: Pulses present and equal in all extremities, no peripheral edema Motor: no focal deficits noted Neurological: CN II-XII grossly intact, no focal motor or sensory deficits noted Skin: Intact with no visualized rashes Psych: Normal affect and mood ED course: 26-year-old female presents emergency department for suicide attempt. Allegedly had several alcoholic drinks and took 30 tabs of 4 mg Zanaflex at an unknown time today. Patient is lethargic at the bedside. She sleepy but arousable. Vital signs upon arrival showed bradycardia of 54, rest of vital signs within acceptable limits. Patient was placed on dietary aid and patient's heart rate began to diminish into the mid 40s as low as 35. EKG showed prolonged QT and critical sinus bradycardia. Poison control was contacted and recommended magnesium and potassium optimization. They did want us about respiratory depression. Patient was observed in the emergency department given fluids for approximately 1 hour 45 minutes until patient did seem to be improving and seemed to be getting more bradycardic and started to become hypotensive. Decision was made to intubate the patient. Central venous catheter line was place in the event that patient would require low-dose pressor administration. Laboratory evaluation obtained. Leukocytosis of 15.2, coag panel is unremarkable. Metabolic panel shows potassium 3.3, magnesium of 1.8. Poison control recommended optimizing potassium and magnesium 4.0 and 2.0 respectively. Toxicology labs are normal. No signs of osmolar gap. Chest x-ray shows good placement of endotracheal tube intubation. Case discussed with senior software manager Dr. Valdez was went except patient's current ICU. Patient be admitted to [facility]. EKG interpretation: Ventricular rate 41, sinus bradycardia,. 169, QS 105, QTc 532. Overall this EKG is concerning for cardiac drug toxicity. - Related Data Home Medications Medication Instructions Recorded Confirmed Phentermine HCl [Adipex-P] 37.5 mg PO DAILY 11/28/18 09/26/21 Adalimumab [Humira(Cf) Pen] 40 mg SQ Q14D 09/26/21 09/26/21 Albuterol Inhaler [Ventolin Hfa 1 - 2 puff INHALATION RT-Q6H PRN 09/26/21 09/26/21 Inhaler] Semaglutide [Wegovy] 0.25 mg SQ Q7D 09/26/21 09/26/21 Topiramate [Topamax] 50 mg PO BID 09/26/21 09/26/21 tiZANidine [Zanaflex] 4 mg PO Q8HR 09/26/21 09/26/21 Allergies Allergy/AdvReac Type Severity Reaction Status Date / Time No Known Allergies Allergy Verified 09/26/21 18:36 Review of Systems ROS Statement: Those systems with pertinent positive or pertinent negative responses have been documented in the HPI. ROS Other: All systems not noted in ROS Statement are negative. Past Medical History Past Medical History: GERD/Reflux, Rheumatoid Arthritis (RA) Additional Past Medical History / Comment(s): Frequent bronchitis, gall stones History of Any Multi-Drug Resistant Organisms: None Reported Past Surgical History: Section, Cholecystectomy Additional Past Surgical History / Comment(s): [place] teeth extractions. ERCP- 11/02/18 Past Anesthesia/Blood Transfusion Reactions: No Reported Reaction Past Psychological History: Anxiety, Depression Past Alcohol Use History: None Reported Past Drug Use History: None Reported - Past Family History Mother Family Medical History: No Reported History Additional Family Medical History / Comment(s): Mother is healthy Father Family Medical History: Hyperlipidemia, Hypertension Additional Family Medical History / Comment(s): psoriasis General Exam Limitations: no limitations Course Vital Signs 09/26/21 09/26/21 09/26/21 17:13 18:49 19:16 Temperature 97.7 F Pulse Rate 54 L 46 L Respiratory 16 16 Rate Blood Pressure 104/57 97/61 O2 Sat by Pulse 100 Oximetry Procedures - Central Line Placement Right Femoral Consent Obtained: emergent situation Patient Placed on Monitor/Pulse Ox: Yes MD Prep: mask, gloves Central Line Prep: Chlorhexidine scrub Ultrasound Used for Placement: Yes Central Line Lumen Inserted: triple Bloods Obtained for Lab: No Central Line Position: good blood return, all ports aspirated, flushed, capped, sutured in place with 3-0 nylon Dressing Applied: Tegaderm Patient Tolerated Procedure: well (placement confirmed with ultrasound) - Intubation Sedative: Ketamine Mg Given: 90 Laryngoscope: fiber optic video scope Size: 3 Assist Device Used: fiber optic device ET Tube Size: 7.5 ET Tube Uncuffed: No Tube Secured Depth (cm): 23 Tube Secured Location: lips Tube Placement Confirmation: visualized tube passing through cords, equal breath sounds bilaterally, no breath sounds over epigastrium, confirmation by capnometry Patient Tolerated Procedure: well Intubation Complications: none Medical Decision Making - Lab Data Result diagrams: 09/26/21 18:01 09/26/21 18:01 Lab Results 09/26/21 09/26/21 09/26/21 Range/Units 18:01 18:01 18:01 WBC 15.2 H (3.8-10.6) k/uL RBC 4.54 (3.80-5.40) m/uL Hgb 13.8 (11.4-16.0) gm/dL Hct 40.8 (34.0-46.0) % MCV 89.8 (80.0-100.0) fL MCH 30.3 (25.0-35.0) pg MCHC 33.8 (31.0-37.0) g/dL RDW 12.6 (11.5-15.5) % Plt Count 309 (150-450) k/uL MPV 7.8 Neutrophils % 73 % Lymphocytes % 17 % Monocytes % 4 % Eosinophils % 4 % Basophils % 1 % Neutrophils # 11.1 H (1.3-7.7) k/uL Lymphocytes # 2.6 (1.0-4.8) k/uL Monocytes # 0.7 (0-1.0) k/uL Eosinophils # 0.6 (0-0.7) k/uL Basophils # 0.1 (0-0.2) k/uL PT 11.1 (9.0-12.0) sec INR 1.0 (<1.2) APTT 24.9 (22.0-30.0) sec Sodium 137 (137-145) mmol/L Potassium 3.3 L (3.5-5.1) mmol/L Chloride 101 (98-107) mmol/L Carbon Dioxide 26 (22-30) mmol/L Anion Gap 10 mmol/L BUN 9 (7-17) mg/dL Creatinine 0.62 (0.52-1.04) mg/dL Est GFR (CKD-EPI)AfAm >90 (>60 ml/min/1.73 sqM) Est GFR (CKD-EPI)NonAf >90 (>60 ml/min/1.73 sqM) Glucose 113 H (74-99) mg/dL Osmolality 286 (280-301) mosm/kg Plasma Lactic Acid Juan (0.7-2.0) mmol/L Calcium 9.0 (8.4-10.2) mg/dL Magnesium 1.8 (1.6-2.3) mg/dL Total Bilirubin 1.2 (0.2-1.3) mg/dL AST 23 (14-36) U/L ALT 17 (4-34) U/L Alkaline Phosphatase 44 (38-126) U/L Total Protein 7.5 (6.3-8.2) g/dL Albumin 4.4 (3.5-5.0) g/dL HCG, Quant <2.4 mIU/mL Salicylates <1.0 mg/dL Acetaminophen <10.0 ug/mL Serum Alcohol <10 mg/dL 09/26/21 Range/Units 18:01 WBC (3.8-10.6) k/uL RBC (3.80-5.40) m/uL Hgb (11.4-16.0) gm/dL Hct (34.0-46.0) % MCV (80.0-100.0) fL MCH (25.0-35.0) pg MCHC (31.0-37.0) g/dL RDW (11.5-15.5) % Plt Count (150-450) k/uL MPV Neutrophils % % Lymphocytes % % Monocytes % % Eosinophils % % Basophils % % Neutrophils # (1.3-7.7) k/uL Lymphocytes # (1.0-4.8) k/uL Monocytes # (0-1.0) k/uL Eosinophils # (0-0.7) k/uL Basophils # (0-0.2) k/uL PT (9.0-12.0) sec INR (<1.2) APTT (22.0-30.0) sec Sodium (137-145) mmol/L Potassium (3.5-5.1) mmol/L Chloride (98-107) mmol/L Carbon Dioxide (22-30) mmol/L Anion Gap mmol/L BUN (7-17) mg/dL Creatinine (0.52-1.04) mg/dL Est GFR (CKD-EPI)AfAm (>60 ml/min/1.73 sqM) Est GFR (CKD-EPI)NonAf (>60 ml/min/1.73 sqM) Glucose (74-99) mg/dL Osmolality (280-301) mosm/kg Plasma Lactic Acid Juan 1.7 (0.7-2.0) mmol/L Calcium (8.4-10.2) mg/dL Magnesium (1.6-2.3) mg/dL Total Bilirubin (0.2-1.3) mg/dL AST (14-36) U/L ALT (4-34) U/L Alkaline Phosphatase (38-126) U/L Total Protein (6.3-8.2) g/dL Albumin (3.5-5.0) g/dL HCG, Quant mIU/mL Salicylates mg/dL Acetaminophen ug/mL Serum Alcohol mg/dL Critical Care Time Critical Care Time: Yes Total Critical Care Time: 77 Disposition Clinical Impression: Drug overdose Disposition: ADMITTED IP TO THIS [facility] Condition: Critical Referrals: Bazo,Charbal B, MD [Primary Care Provider] - 1-2 days
[2021-09-26 18:14] LABS: Basophils # (A) 0.1 k/uL (0-0.2); Basophils % (A) 1 %; Eosinophils # (A) 0.6 k/uL (0-0.7); Eosinophils % (A) 4 %; HCT 40.8 % (34.0-46.0); HGB 13.8 gm/dL (11.4-16.0); Lymphocytes # (A) 2.6 k/uL (1.0-4.8); Lymphocytes % (A) 17 %; MCH 30.3 pg (25.0-35.0); MCHC 33.8 g/dL (31.0-37.0); MCV 89.8 fL (80.0-100.0); Mean Platelet Volume 7.8; Monocytes # (A) 0.7 k/uL (0-1.0); Monocytes % (A) 4 %; Neutrophils # (A) 11.1 k/uL (1.3-7.7); Neutrophils % (A) 73 %; Platelet Count 309 k/uL (150-450); RBC 4.54 m/uL (3.80-5.40); RDW 12.6 % (11.5-15.5); WBC 15.2 k/uL (3.8-10.6)
[2021-09-26 18:21] LABS: Partial Thromboplastin Time 24.9 sec (22.0-30.0); Prothrombin Time 11.1 sec (9.0-12.0)
[2021-09-26 18:23] LABS: ALT 17 U/L (4-34); AST 23 U/L (14-36); African American GFR (CKD) >90 (>60 ml/min/1.73 sqM); Albumin 4.4 g/dL (3.5-5.0); Alkaline Phosphatase 44 U/L (38-126); Anion Gap 10 mmol/L; Blood Urea Nitrogen 9 mg/dL (7-17); Carbon Dioxide 26 mmol/L (22-30); Chloride 101 mmol/L (98-107); Glucose 113 mg/dL (74-99); Magnesium 1.8 mg/dL (1.6-2.3); Non-African American GFR(CKD) >90 (>60 ml/min/1.73 sqM); Potassium 3.3 mmol/L (3.5-5.1); Sodium 137 mmol/L (137-145); Total Bilirubin 1.2 mg/dL (0.2-1.3); Total Protein 7.5 g/dL (6.3-8.2)
[2021-09-26 18:34] LABS: Acetaminophen <10.0 ug/mL; Alcohol <10 mg/dL; Salicylate <1.0 mg/dL
[2021-09-26] MEDS ORDERED: POTASSIUM CHLORIDE 20 MEQ in WATER FOR INJECTION 1 100ML.BAG IVPB STA (18:38)
[2021-09-26] MEDS: MAGNESIUM SULFATE-D5W PMX 1 GM in DEXTROSE/WATER 1 100ML.BAG IVPB SCH ×2 (18:49→19:40)
[2021-09-26 19:03] LABS: HCG,Quantitative Serum <2.4 mIU/mL
[2021-09-26] MEDS ORDERED: KETAMINE 10 MG/ML 20 ML VIAL IV ONE (19:05)
[2021-09-26] MEDS ORDERED: ROCURONIUM 10 MG/ML (5 ML VIAL) IV ONE (19:06)
--- NOTE | 2021-09-26 19:58 | XR ---
EXAMINATION TYPE: XR chest 1V portable DATE OF EXAM: 09/26/2021 7:51 PM COMPARISON:Chest radiographs from 05/11/2018. TECHNIQUE: XR chest 1V portable Frontal view of the chest. CLINICAL INDICATION:Female, 26 years old with history of ETT/OG placement; FINDINGS: Lungs/Pleura: Increased airspace opacities projecting over the heart as well as the middle lobe on th e right. No evidence of pneumothorax or pleural effusion. Pulmonary vascularity: Unremarkable. Heart/mediastinum: Cardiomediastinal silhouette is unremarkable. Musculoskeletal: No acute osseous pathology. Lines/Tubes: Endotracheal tube with distal tip 52 mm above the kayleen Nasogastric tube with its distal tip and side-port projecting under the diaphragm. IMPRESSION: 1. Suspected airspace disease in the lung bases. 2. Support tubes in appropriate position.
[2021-09-26] MEDS ORDERED: MIDAZOLAM 1 MG/ML 5 ML VIAL IV STA ×2 (20:00→20:30)
[2021-09-26 20:35] LABS: Amphetamine Screen,Urine Not Detected (NotDetected); Barbiturate Screen,Urine Not Detected (NotDetected); Benzodiazepines Screen,Urine Not Detected (NotDetected); Cocaine Screen,Urine Detected (NotDetected); Methadone Screen, Urine Not Detected (NotDetected); Opiate Screen,Urine Not Detected (NotDetected); Oxycodone Screen, Urine Not Detected (NotDetected); Phencyclidine Screen,Urine Not Detected (NotDetected); Tricyclic Antidepressant,Urine Not Detected (NotDetected); Urn Cannabinoid Scrn Not Detected (NotDetected)
[2021-09-26] MEDS: SODIUM CHLORIDE 0.9% 1,000 ML IV SCH ×2 (20:55→23:54)
--- NOTE | 2021-09-26 21:15 | CT ---
EXAMINATION TYPE: CT brain wo con CT DLP: 1092.4 mGycm, Automated exposure control for dose reduction was used. DATE OF EXAM: 09/26/2021 9:01 PM COMPARISON: None. CLINICAL INDICATION:Female, 26 years old with history of altered mental status, per request by Dr. Parish villeda, Altered mental status. TECHNIQUE: Brain: Multiple axial CT images of the brain were obtained without IV contrast. FINDINGS: Brain: Extra-axial spaces: No abnormal extra-axial fluid collections. Ventricular system: Within normal limits Cerebral parenchyma: No acute intraparenchymal hemorrhage or mass effect. The yung-white junction is well differentiated. Cerebellum: Unremarkable. Mass effect: No evidence of midline shift. Intracranial vasculature: unremarkable Soft tissues: Normal. Calvarium/osseous structures: No depressed skull fracture. Paranasal sinuses and mastoid air cells: Mild scattered paranasal sinus disease. Visualized orbits: Orbital contents are intact. IMPRESSION: No acute intracranial process.
[2021-09-26 21:20] LABS: Glucose,Whole Blood 104 mg/dL (75-99)
[2021-09-26 21:34] LABS: ABG Base Excess 1.3 mmol/L; ABG HCO3 26 mmol/L (21-25); ABG Oxygen Saturation 99.8 % (94-97); ABG PCO2 41 mmHg (35-45); ABG PH 7.41 (7.35-7.45); ABG PO2 >400 mmHg (83-108); ABG TCO2 27 mmol/L (19-24); Allen Test Performed? Yes
[2021-09-27 06:10] LABS: ABG Base Excess 1.6 mmol/L; ABG HCO3 25 mmol/L (21-25); ABG Oxygen Saturation 99.5 % (94-97); ABG PCO2 35 mmHg (35-45); ABG PH 7.47 (7.35-7.45); ABG PO2 217 mmHg (83-108); ABG TCO2 26 mmol/L (19-24); Allen Test Performed? Yes
--- NOTE | 2021-09-27 08:01 | P.CRDCN ---
History of Present Illness History of present illness: HISTORY OF PRESENTING ILLNESS Patient is a 26-year-old female with history of depression, lightheaded episodes apparently recently on an event monitor, newly diagnosed rheumatoid arthritis a nd recently placed on Humira, on Adipex apparently for weight loss who presents secondary to apparent intentional drug overdose. Patient is intubated and sedated and therefore history is supplied by chart. Apparently patient had attempted to commit suicide and taken approximately 30 pills of Zanaflex. She then became altered and confused and therefore intubated in emergency department. She also has some cut corey on her leg. Currently blood pressures been stable however initially EKG showed sinus bradycardia with heart rates in the 40s with minimal J-point elevation. Patient was noted to be hypothermic and upon rewarming heart rates improved into the 60s. No other events per nursing. Urine drug screen did also show cocaine. REVIEW OF SYSTEMS At the time of my exam: Unable to obtain secondary to sedation PHYSICAL EXAMINATION Vital signs reviewed. CONSTITUTIONAL: No apparent distress, intubated and sedated HEENT: Head is normocephalic. Pupils are equal, round. Sclerae anicteric. Mucous membranes of the mouth are moist. No JVD. No carotid bruit. CHEST EXAMINATION: Lungs are clear to auscultation. No chest wall tenderness is noted on palpation or with deep breathing. HEART EXAMINATION: Regular rate and rhythm. S1, S2 heard. No murmurs, gallops or rub. ABDOMEN: Soft, nontender. Positive bowel sounds. EXTREMITIES: 2+ peripheral pulses, no lower extremity edema and no calf tenderness. NEUROLOGIC EXAMINATION: Patient is sedated ASSESSMENT 1. Intentional drug overdose 2. Sinus bradycardia likely related to hypo-thermia, improved with rewarming 3. Reported history of lightheaded episodes with outpatient monitor being performed 4. Depression 5. Recent diagnosis of rheumatoid arthritis 6. Cocaine abuse PLAN Patient's bradycardia likely related to hypothermia as well as possible vagal response from sedation. Heart rates have improved with rewarming. Continue with supportive care and psychiatric care. Hopeful extubation soon to monitor neurologic progress. Check 2-D echo for completeness. Follow-up outpatient regarding chronic lightheadedness. Past Medical History Past Medical History: GERD/Reflux, Rheumatoid Arthritis (RA) Additional Past Medical History / Comment(s): Frequent bronchitis, gall stones History of Any Multi-Drug Resistant Organisms: None Reported Past Surgical History: Section, Cholecystectomy Additional Past Surgical History / Comment(s): [place] teeth extractions. ERCP- 11/02/18 Past Anesthesia/Blood Transfusion Reactions: No Reported Reaction Past Psychological History: Anxiety, Depression Additional Psychological History / Comment(s): Pt resides at home with her mother and pt's child. She is currently unemployed. She drives. Smoking Status: Vaper Past Alcohol Use History: None Reported Additional Past Alcohol Use History / Comment(s): Pt started smoking in 2010 - SMOKING <1/2 PPD Past Drug Use History: None Reported - Past Family History Mother Family Medical History: No Reported History Additional Family Medical History / Comment(s): Mother is healthy Father Family Medical History: Hyperlipidemia, Hypertension Additional Family Medical History / Comment(s): psoriasis Medications and Allergies Home Medications Medication Instructions Recorded Confirmed Type Phentermine HCl [Adipex-P] 37.5 mg PO DAILY 11/28/18 09/26/21 History Adalimumab [Humira(Cf) Pen] 40 mg SQ Q14D 09/26/21 09/26/21 History Albuterol Inhaler [Ventolin Hfa 1 - 2 puff INHALATION RT-Q6H PRN 09/26/21 09/26/21 History Inhaler] Semaglutide [Wegovy] 0.25 mg SQ Q7D 09/26/21 09/26/21 History Topiramate [Topamax] 50 mg PO BID 09/26/21 09/26/21 History tiZANidine [Zanaflex] 4 mg PO Q8HR 09/26/21 09/26/21 History Allergies Allergy/AdvReac Type Severity Reaction Status Date / Time No Known Allergies Allergy Verified 09/26/21 18:36 Physical Exam Vitals: Vital Signs Temp Pulse Pulse Resp BP Pulse Ox 09/27/21 07:00 75 16 98/49 97 09/27/21 06:30 77 16 91/45 99 09/27/21 06:00 69 16 98/48 98 09/27/21 05:30 68 16 89/41 98 09/27/21 05:00 63 16 88/42 98 09/27/21 04:30 62 16 90/41 96 09/27/21 04:00 97.4 F L 62 16 89/38 96 09/27/21 03:30 64 16 92/42 99 09/27/21 03:00 63 16 91/40 98 09/27/21 02:30 63 16 89/41 98 09/27/21 02:00 66 2 L 94/40 98 09/27/21 01:30 62 3 L 90/43 98 09/27/21 01:00 63 5 L 90/43 100 09/27/21 00:30 58 L 8 L 94/41 100 09/27/21 00:07 56 L 16 91/44 100 09/27/21 00:00 97.5 F L 55 L 51 L 15 89/45 100 09/26/21 23:45 50 L 16 92/48 100 09/26/21 23:30 50 L 16 91/50 100 09/26/21 23:15 48 L 16 94/53 100 09/26/21 23:00 45 L 16 93/53 100 09/26/21 22:45 43 L 16 95/60 100 09/26/21 22:30 42 L 16 93/69 100 09/26/21 22:15 40 L 15 95/62 96 09/26/21 22:00 40 L 16 95/63 100 09/26/21 21:45 44 L 16 97/59 100 09/26/21 21:30 93.7 F L 48 L 16 96/60 100 09/26/21 21:19 51 L 16 100 09/26/21 21:00 60 16 101/64 100 09/26/21 20:50 60 16 107/68 99 09/26/21 20:45 114/73 09/26/21 20:40 58 L 16 120/71 99 09/26/21 20:30 63 16 115/76 99 09/26/21 20:20 59 L 16 115/76 99 09/26/21 20:15 58 L 119/81 99 09/26/21 20:00 60 16 131/87 99 09/26/21 19:45 77 16 131/87 99 09/26/21 19:38 74 134/96 99 09/26/21 19:30 73 16 131/87 100 09/26/21 19:24 74 16 134/96 99 09/26/21 19:20 47 L 24 98/59 98 09/26/21 19:16 46 L 97/61 09/26/21 18:49 16 09/26/21 17:13 97.7 F 54 L 16 104/57 100 Intake and Output 09/26/21 09/27/21 09/27/21 22:59 06:59 14:59 Intake Total 601.333 9655.852 196.452 Output Total 345 207 15 Balance -84.637 923.852 181.452 Intake: Intake, IV Titration 291.041 4631.852 196.452 Amount Sodium Chloride 0.9% 1, 260 1040 130 000 ml @ 130 mls/hr IV . Q7H42M [facility] Rx#:[id number] propofoL 1,000 mg In 0.363 90.852 66.452 Empty Bag 1 bag @ 5 MCG/ KG/MIN 2.722 mls/hr IV . Q24H [facility] Rx#:[id number] Output: Urine 345 207 15 Other: Voiding Method Indwelling Catheter Weight 90.718 kg 91.3 kg Results 09/26/21 18:01 09/26/21 18:01 Cardiac Enzymes 09/26/21 Range/Units 18:01 AST 23 (14-36) U/L Coagulation 09/26/21 Range/Units 18:01 PT 11.1 (9.0-12.0) sec APTT 24.9 (22.0-30.0) sec CBC 09/26/21 Range/Units 18:01 WBC 15.2 H (3.8-10.6) k/uL RBC 4.54 (3.80-5.40) m/uL Hgb 13.8 (11.4-16.0) gm/dL Hct 40.8 (34.0-46.0) % Plt Count 309 (150-450) k/uL Comprehensive Metabolic Panel 09/26/21 Range/Units 18:01 Sodium 137 (137-145) mmol/L Potassium 3.3 L (3.5-5.1) mmol/L Chloride 101 (98-107) mmol/L Carbon Dioxide 26 (22-30) mmol/L BUN 9 (7-17) mg/dL Creatinine 0.62 (0.52-1.04) mg/dL Glucose 113 H (74-99) mg/dL Calcium 9.0 (8.4-10.2) mg/dL AST 23 (14-36) U/L ALT 17 (4-34) U/L Alkaline Phosphatase 44 (38-126) U/L Total Protein 7.5 (6.3-8.2) g/dL Albumin 4.4 (3.5-5.0) g/dL Current Medications Generic Name Dose Route Start Last Admin Trade Name Oneal PRN Reason Stop Dose Admin Sodium Chloride 1,000 mls @ 130 mls/hr 09/26/21 20:00 09/26/21 23:54 Saline 0.9% IV 130 mls/hr .Q7H42M [facility] Administration Propofol 1,000 mg/ IV Solution 100 mls @ 2.722 mls/hr 09/26/21 20:00 09/27/21 07:30 IV 50 mcg/kg/min .Q24H [facility] 27.215 mls/hr Administration Protocol 5 MCG/KG/MIN Intake and Output 09/26/21 09/27/21 09/27/21 22:59 06:59 14:59 Intake Total 275.951 9386.852 196.452 Output Total 345 207 15 Balance -84.637 923.852 181.452 Intake: Intake, IV Titration 714.787 0841.852 196.452 Amount Sodium Chloride 0.9% 1, 260 1040 130 000 ml @ 130 mls/hr IV . Q7H42M [facility] Rx#:[id number] propofoL 1,000 mg In 0.363 90.852 66.452 Empty Bag 1 bag @ 5 MCG/ KG/MIN 2.722 mls/hr IV . Q24H [facility] Rx#:[id number] Output: Urine 345 207 15 Other: Voiding Method Indwelling Catheter Weight 90.718 kg 91.3 kg 09/26/21 18:01 09/26/21 18:01
--- NOTE | 2021-09-27 08:31 | XR ---
EXAMINATION TYPE: XR chest 1V portable DATE OF EXAM: 09/27/2021 CLINICAL HISTORY: Difficulty breathing had to be intubated. TECHNIQUE: Single AP portable supine view of the chest is obtained. COMPARISON: Chest x-ray from one day earlier FINDINGS: Endotracheal and orogastric tubes redemonstrated and satisfactory in position. Some increased markings bilaterally remain present. No pleural effusion or pneumothorax seen. Cardiac silhouette size remains within normal limits. Osseous structures are intact. Overlying EKG leads red emonstrated. IMPRESSION: Satisfactory positioning of endotracheal and orogastric tubes redemonstrated. Mild centra l edema bilaterally again seen.
[2021-09-27 10:35] LABS: Basophils # (A) 0.1 k/uL (0-0.2); Basophils % (A) 0 %; Eosinophils # (A) 0.7 k/uL (0-0.7); Eosinophils % (A) 6 %; HCT 35.9 % (34.0-46.0); HGB 12.4 gm/dL (11.4-16.0); Lymphocytes # (A) 2.5 k/uL (1.0-4.8); Lymphocytes % (A) 21 %; MCH 31.9 pg (25.0-35.0); MCHC 34.4 g/dL (31.0-37.0); MCV 92.7 fL (80.0-100.0); Mean Platelet Volume 7.9; Monocytes # (A) 0.7 k/uL (0-1.0); Monocytes % (A) 6 %; Neutrophils # (A) 7.6 k/uL (1.3-7.7); Neutrophils % (A) 65 %; Platelet Count 223 k/uL (150-450); RBC 3.87 m/uL (3.80-5.40); RDW 12.9 % (11.5-15.5); WBC 11.6 k/uL (3.8-10.6)
[2021-09-27 10:46] LABS: ALT 12 U/L (4-34); AST 15 U/L (14-36); African American GFR (CKD) >90 (>60 ml/min/1.73 sqM); Albumin 3.2 g/dL (3.5-5.0); Alkaline Phosphatase 45 U/L (38-126); Anion Gap 1 mmol/L; Blood Urea Nitrogen 9 mg/dL (7-17); Calcium 8.1 mg/dL (8.4-10.2); Carbon Dioxide 27 mmol/L (22-30); Chloride 108 mmol/L (98-107); Glucose 79 mg/dL (74-99); Non-African American GFR(CKD) >90 (>60 ml/min/1.73 sqM); Potassium 3.8 mmol/L (3.5-5.1); Sodium 136 mmol/L (137-145); Total Bilirubin 1.2 mg/dL (0.2-1.3)
[2021-09-27] MEDS: SODIUM CHLORIDE 0.9% 1,000 ML IV SCH ×2 (11:18→18:31)
--- NOTE | 2021-09-27 14:18 | P.CNPUL ---
History of Present Illness Consult date: 09/27/21 Chief complaint: Drug overdose History of present illness: This 26-year-old female patient has history of depression and the patient had drug overdose. The patient intentionally ingested a total of 30 tablets of Zanaflex 4 mg. The patient came into the emergency department. Apparently she was brought in via EMS. Family has been informed about this drug overdose and this could this current to bring her to the hospital. At the time of arrival, the patient was quite obtunded, lethargic, altered, confused, and the patient was also bradycardic and hypothermic. Note that the exact timing of the ingestion was not known. The patient was not given any form of activated charcoal. The patient's case was discussed with poison control. Treatment was essentially supportive. She was given external warming. Her temperature improved. Following that, the patient was given IV fluids. She did not require pressors and her sinus tachycardia gradually improved. She is currently hemodynamically stable. She was kept on a mechanical ventilator throughout the night and this morning showed a propofol running at 50 mg/kg per minute and the patient was on a normal saline infusion rate of 130s's an hour. The patient is an assist-control mode of mechanical ventilation at the rate of 16, tidal volume of 400, FiO2 of 50% with a PEEP of 5. Blood gas showed a pH of 7.47 with a pCO2 of 37 and pO2 of 217. Chest x-ray showing some atelectatic changes and some mild central pulmonary vascular marking. CAT scan of the brain was negative. The patient is easily arousable this morning. She is following commands despite being on propofol. The rest of the urine drug screen was positive for cocaine. Alcohol was negative, Tylenol was negative, salicylates were negative. Electrolytes are all within normal limits patient did have some mild hypokalemia that was replaced. Review of Systems ROS unobtainable: due to endotracheal tube Past Medical History Past Medical History: GERD/Reflux, Rheumatoid Arthritis (RA) Additional Past Medical History / Comment(s): Frequent bronchitis, gall stones History of Any Multi-Drug Resistant Organisms: None Reported Past Surgical History: Section, Cholecystectomy Additional Past Surgical History / Comment(s): [place] teeth extractions. ERCP- 11/02/18 Past Anesthesia/Blood Transfusion Reactions: No Reported Reaction Past Psychological History: Anxiety, Depression Additional Psychological History / Comment(s): Pt resides at home with her mother and pt's child. She is currently unemployed. She drives. Smoking Status: Vaper Past Alcohol Use History: None Reported Additional Past Alcohol Use History / Comment(s): Pt started smoking in 2010 - SMOKING <1/2 PPD Past Drug Use History: None Reported - Past Family History Mother Family Medical History: No Reported History Additional Family Medical History / Comment(s): Mother is healthy Father Family Medical History: Hyperlipidemia, Hypertension Additional Family Medical History / Comment(s): psoriasis Medications and Allergies Home Medications Medication Instructions Recorded Confirmed Type Phentermine HCl [Adipex-P] 37.5 mg PO DAILY 11/28/18 09/26/21 History Adalimumab [Humira(Cf) Pen] 40 mg SQ Q14D 09/26/21 09/26/21 History Albuterol Inhaler [Ventolin Hfa 1 - 2 puff INHALATION RT-Q6H PRN 09/26/21 09/26/21 History Inhaler] Semaglutide [Wegovy] 0.25 mg SQ Q7D 09/26/21 09/26/21 History Topiramate [Topamax] 50 mg PO BID 09/26/21 09/26/21 History tiZANidine [Zanaflex] 4 mg PO Q8HR 09/26/21 09/26/21 History Allergies Allergy/AdvReac Type Severity Reaction Status Date / Time No Known Allergies Allergy Verified 09/26/21 18:36 Physical Exam Vitals: Vital Signs Temp Pulse Pulse Resp BP Pulse Ox 09/27/21 13:00 71 14 119/66 94 L 09/27/21 12:30 97.4 F L 78 18 125/65 92 L 09/27/21 12:00 70 12 118/75 97 09/27/21 11:30 65 17 117/70 98 09/27/21 11:00 87 16 113/55 95 09/27/21 10:30 73 21 114/61 98 09/27/21 10:00 71 16 107/61 98 09/27/21 09:30 65 16 111/57 98 09/27/21 09:00 67 16 106/58 97 09/27/21 08:30 68 16 107/57 98 09/27/21 08:00 97.7 F 80 16 94/67 99 09/27/21 07:30 78 16 104/59 98 09/27/21 07:00 75 16 98/49 97 09/27/21 06:30 77 16 91/45 99 09/27/21 06:00 69 16 98/48 98 09/27/21 05:30 68 16 89/41 98 09/27/21 05:00 63 16 88/42 98 09/27/21 04:30 62 16 90/41 96 09/27/21 04:00 97.4 F L 62 16 89/38 96 09/27/21 03:30 64 16 92/42 99 09/27/21 03:00 63 16 91/40 98 09/27/21 02:30 63 16 89/41 98 09/27/21 02:00 66 2 L 94/40 98 09/27/21 01:30 62 3 L 90/43 98 09/27/21 01:00 63 5 L 90/43 100 09/27/21 00:30 58 L 8 L 94/41 100 09/27/21 00:07 56 L 16 91/44 100 09/27/21 00:00 97.5 F L 55 L 51 L 15 89/45 100 09/26/21 23:45 50 L 16 92/48 100 09/26/21 23:30 50 L 16 91/50 100 09/26/21 23:15 48 L 16 94/53 100 09/26/21 23:00 45 L 16 93/53 100 09/26/21 22:45 43 L 16 95/60 100 09/26/21 22:30 42 L 16 93/69 100 09/26/21 22:15 40 L 15 95/62 96 09/26/21 22:00 40 L 16 95/63 100 09/26/21 21:45 44 L 16 97/59 100 09/26/21 21:30 93.7 F L 48 L 16 96/60 100 09/26/21 21:19 51 L 16 100 09/26/21 21:00 60 16 101/64 100 09/26/21 20:50 60 16 107/68 99 09/26/21 20:45 114/73 09/26/21 20:40 58 L 16 120/71 99 09/26/21 20:30 63 16 115/76 99 09/26/21 20:20 59 L 16 115/76 99 09/26/21 20:15 58 L 119/81 99 09/26/21 20:00 60 16 131/87 99 09/26/21 19:45 77 16 131/87 99 09/26/21 19:38 74 134/96 99 09/26/21 19:30 73 16 131/87 100 09/26/21 19:24 74 16 134/96 99 09/26/21 19:20 47 L 24 98/59 98 09/26/21 19:16 46 L 97/61 09/26/21 18:49 16 09/26/21 17:13 97.7 F 54 L 16 104/57 100 Intake and Output 09/26/21 09/27/21 09/27/21 22:59 06:59 14:59 Intake Total 278.081 6508.852 1053.561 Output Total 345 207 760 Balance -84.637 923.852 293.561 Intake: IV 780 Sodium Chloride 0.9% 1, 780 000 ml @ 130 mls/hr IV . Q7H42M [facility] Rx#:[id number] Intake, IV Titration 586.308 1082.852 273.561 Amount Sodium Chloride 0.9% 1, 260 1040 130 000 ml @ 130 mls/hr IV . Q7H42M [facility]B Rx#:[id number] propofoL 1,000 mg In 0.363 90.852 143.561 Empty Bag 1 bag @ 5 MCG/ KG/MIN 2.722 mls/hr IV . Q24H [facility] Rx#:[id number] Output: Gastric Drainage 300 Urine 345 207 460 Other: Voiding Method Indwelling Catheter Indwelling Catheter Weight 90.718 kg 91.3 kg CONSTITUTIONAL: No apparent distress, intubated and sedated, calm and comfortable, arousable while being on propofol. Orotracheal and orogastric tube are both in place. Head exam was generally normal. There was no scleral icterus or corneal arcus. Mucous membranes were moist. HEENT: Head is normocephalic. Pupils are equal, round. Sclerae anicteric. Mucous membranes of the mouth are moist. No JVD. No carotid bruit. CHEST EXAMINATION: Lungs are clear to auscultation. No chest wall tenderness is noted on palpation or with deep breathing. HEART EXAMINATION: Regular rate and rhythm. S1, S2 heard. No murmurs, gallops or rub. ABDOMEN: Abdominal exam revealed normal bowel sounds. The abdomen was soft, non- tender, and without masses, organomegaly, or appreciable enlargement of the abdominal aorta. EXTREMITIES: 2+ peripheral pulses, no lower extremity edema and no calf tenderness. NEUROLOGIC EXAMINATION: Patient is arousable and she is moving all 4 extremities and she is unresponsive despite being on propofol. Examination of the skin revealed no evidence of significant rashes, suspicious appearing nevi or other concerning lesions. Results - Laboratory Findings CBC and BMP: 09/27/21 10:11 09/27/21 10:11 ABG ABG pH 7.47 (7.35-7.45) H 09/27/21 05:49 ABG pCO2 35 mmHg (35-45) 09/27/21 05:49 ABG pO2 217 mmHg (83-108) H 09/27/21 05:49 ABG O2 Saturation 99.5 % (94-97) H 09/27/21 05:49 PT/INR, D-dimer PT 11.1 sec (9.0-12.0) 09/26/21 18:01 INR 1.0 (<1.2) 09/26/21 18:01 Abnormal lab findings: Abnormal Labs 09/26/21 09/26/21 09/26/21 18:01 18:01 19:47 WBC 15.2 H Neutrophils # 11.1 H ABG pH ABG pO2 ABG HCO3 ABG Total CO2 ABG O2 Saturation Sodium Potassium 3.3 L Chloride Glucose 113 H POC Glucose (mg/dL) Calcium Total Protein Albumin Urine Cocaine Screen Detected H 09/26/21 09/26/21 09/27/21 21:18 21:26 05:49 WBC Neutrophils # ABG pH 7.47 H ABG pO2 >400 H 217 H ABG HCO3 26 H ABG Total CO2 27 H 26 H ABG O2 Saturation 99.8 H 99.5 H Sodium Potassium Chloride Glucose POC Glucose (mg/dL) 104 H Calcium Total Protein Albumin Urine Cocaine Screen 09/27/21 09/27/21 10:11 10:11 WBC 11.6 H Neutrophils # ABG pH ABG pO2 ABG HCO3 ABG Total CO2 ABG O2 Saturation Sodium 136 L Potassium Chloride 108 H Glucose POC Glucose (mg/dL) Calcium 8.1 L Total Protein 6.0 L Albumin 3.2 L Urine Cocaine Screen - Diagnostic Findings Chest x-ray: image reviewed Assessment and Plan Plan: 1 acute intentional drug overdose with Zanaflex, recovering and the patient is alert despite being on propofol and the patient is hemodynamically stable. 2 hypothermia recovered 3 sinus bradycardia secondary to above, improved and the patient is currently in a normal sinus rhythm 4 history of depression 5 history of rheumatoid arthritis maintained on Humira on outpatient basis 6 cocaine abuse Plan Stop sedation and assess the patient's mental status Check weaning parameters Proceed with a spontaneous breathing trial and possible exhibition today Will need a sitter postextubation at the bedside and this will provide the patient Continue fluids with normal saline at the rate of 130 mL an hour Heparin subcu for DVT prophylaxis Psychiatric evaluation We'll continue to follow. Time with Patient: Greater than 30
--- NOTE | 2021-09-27 17:56 | P.HPIM ---
History of Present Illness H&P Date: 09/27/21 Chief Complaint: Drug overdose 26-year-old female, history of depression, admitted with intentional drug overdose; patient intentionally ingested a total of 30 tablets of Zanaflex 4 mg. The patient came into the emergency department. Apparently she was brought in via EMS. At the time of arrival, the patient was quite obtunded, lethargic, altered, confused, and the patient was also bradycardic and hypothermic. The patient was not given any form of activated charcoal. The patient's case was discussed with poison control. Treatment was essentially supportive. She was given external warming. Her temperature improved. Following that, the patient was given IV fl uids. She did not require pressors and her sinus tachycardia gradually improved. She is currently hemodynamically stable. She was kept on a mechanical ventilator throughout the night and this morning showed a propofol running at 50 mg/kg per minute and the patient was on a normal saline infusion rate of 130s's an hour. The patient is an assist-control mode of mechanical ventilation at the rate of 16, tidal volume of 400, FiO2 of 50% with a PEEP of 5. Blood gas showed a pH of 7.47 with a pCO2 of 37 and pO2 of 217. Chest x-ray showing some atelectatic changes and some mild central pulmonary vascular marking. CAT scan of the brain was negative. The patient is easily arousable this morning. She is following commands despite being on propofol. The rest of the urine drug screen was positive for cocaine. Alcohol was negative Review of Systems ROS unobtainable: due to mental status Past Medical History Past Medical History: GERD/Reflux, Rheumatoid Arthritis (RA) Additional Past Medical History / Comment(s): Frequent bronchitis, gall stones History of Any Multi-Drug Resistant Organisms: None Reported Past Surgical History: Section, Cholecystectomy Additional Past Surgical History / Comment(s): [place] teeth extractions. ERCP- 11/02/18 Past Anesthesia/Blood Transfusion Reactions: No Reported Reaction Past Psychological History: Anxiety, Depression Additional Psychological History / Comment(s): Pt resides at home with her mother and pt's child. She is currently unemployed. She drives. Smoking Status: Vaper Past Alcohol Use History: None Reported Additional Past Alcohol Use History / Comment(s): Pt started smoking in 2010 - SMOKING <1/2 PPD Past Drug Use History: None Reported - Past Family History Mother Family Medical History: No Reported History Additional Family Medical History / Comment(s): Mother is healthy Father Family Medical History: Hyperlipidemia, Hypertension Additional Family Medical History / Comment(s): psoriasis Medications and Allergies Home Medications Medication Instructions Recorded Confirmed Type Phentermine HCl [Adipex-P] 37.5 mg PO DAILY 11/28/18 09/26/21 History Adalimumab [Humira(Cf) Pen] 40 mg SQ Q14D 09/26/21 09/26/21 History Albuterol Inhaler [Ventolin Hfa 1 - 2 puff INHALATION RT-Q6H PRN 09/26/21 09/26/21 History Inhaler] Semaglutide [Wegovy] 0.25 mg SQ Q7D 09/26/21 09/26/21 History Topiramate [Topamax] 50 mg PO BID 09/26/21 09/26/21 History tiZANidine [Zanaflex] 4 mg PO Q8HR 09/26/21 09/26/21 History Allergies Allergy/AdvReac Type Severity Reaction Status Date / Time No Known Allergies Allergy Verified 09/26/21 18:36 Physical Exam Vitals: Vital Signs Temp Pulse Pulse Resp BP Pulse Ox 09/27/21 09:00 67 16 106/58 97 09/27/21 08:30 68 16 107/57 98 09/27/21 08:00 97.7 F 80 16 94/67 99 09/27/21 07:30 78 16 104/59 98 09/27/21 07:00 75 16 98/49 97 09/27/21 06:30 77 16 91/45 99 09/27/21 06:00 69 16 98/48 98 09/27/21 05:30 68 16 89/41 98 09/27/21 05:00 63 16 88/42 98 09/27/21 04:30 62 16 90/41 96 09/27/21 04:00 97.4 F L 62 16 89/38 96 09/27/21 03:30 64 16 92/42 99 09/27/21 03:00 63 16 91/40 98 09/27/21 02:30 63 16 89/41 98 09/27/21 02:00 66 2 L 94/40 98 09/27/21 01:30 62 3 L 90/43 98 09/27/21 01:00 63 5 L 90/43 100 09/27/21 00:30 58 L 8 L 94/41 100 09/27/21 00:07 56 L 16 91/44 100 09/27/21 00:00 97.5 F L 55 L 51 L 15 89/45 100 09/26/21 23:45 50 L 16 92/48 100 09/26/21 23:30 50 L 16 91/50 100 09/26/21 23:15 48 L 16 94/53 100 09/26/21 23:00 45 L 16 93/53 100 09/26/21 22:45 43 L 16 95/60 100 09/26/21 22:30 42 L 16 93/69 100 09/26/21 22:15 40 L 15 95/62 96 09/26/21 22:00 40 L 16 95/63 100 09/26/21 21:45 44 L 16 97/59 100 09/26/21 21:30 93.7 F L 48 L 16 96/60 100 09/26/21 21:19 51 L 16 100 09/26/21 21:00 60 16 101/64 100 09/26/21 20:50 60 16 107/68 99 09/26/21 20:45 114/73 09/26/21 20:40 58 L 16 120/71 99 09/26/21 20:30 63 16 115/76 99 09/26/21 20:20 59 L 16 115/76 99 09/26/21 20:15 58 L 119/81 99 09/26/21 20:00 60 16 131/87 99 09/26/21 19:45 77 16 131/87 99 09/26/21 19:38 74 134/96 99 09/26/21 19:30 73 16 131/87 100 09/26/21 19:24 74 16 134/96 99 09/26/21 19:20 47 L 24 98/59 98 09/26/21 19:16 46 L 97/61 09/26/21 18:49 16 09/26/21 17:13 97.7 F 54 L 16 104/57 100 Intake and Output 09/26/21 09/27/21 09/27/21 22:59 06:59 14:59 Intake Total 188.390 7798.852 456.452 Output Total 345 207 350 Balance -84.637 923.852 106.452 Intake: IV 260 Sodium Chloride 0.9% 1, 260 000 ml @ 130 mls/hr IV . Q7H42M [facility] Rx#:[id number] Intake, IV Titration 100.835 0147.852 196.452 Amount Sodium Chloride 0.9% 1, 260 1040 130 000 ml @ 130 mls/hr IV . Q7H42M [facility] Rx#:[id number] propofoL 1,000 mg In 0.363 90.852 66.452 Empty Bag 1 bag @ 5 MCG/ KG/MIN 2.722 mls/hr IV . Q24H [facility] Rx#:[id number] Output: Gastric Drainage 300 Urine 345 207 50 Other: Voiding Method Indwelling Catheter Indwelling Catheter Weight 90.718 kg 91.3 kg CONSTITUTIONAL: No apparent distress, intubated and sedated, calm and comfortable, arousable while being on propofol. Orotracheal and orogastric tube are both in place. Head exam was generally normal. There was no scleral icterus or corneal arcus. Mucous membranes were moist. HEENT: Head is normocephalic. Pupils are equal, round. Sclerae anicteric. Mucous membranes of the mouth are moist. No JVD. No carotid bruit. CHEST EXAMINATION: Lungs are clear to auscultation. No chest wall tenderness is noted on palpation or with deep breathing. HEART EXAMINATION: Regular rate and rhythm. S1, S2 heard. No murmurs, gallops or rub. ABDOMEN: Abdominal exam revealed normal bowel sounds. The abdomen was soft, non- tender, and without masses, organomegaly, or appreciable enlargement of the abdominal aorta. EXTREMITIES: 2+ peripheral pulses, no lower extremity edema and no calf tenderness. NEUROLOGIC EXAMINATION: Patient is arousable and she is moving all 4 extremities and she is unresponsive despite being on propofol. Examination of the skin revealed no evidence of significant rashes, suspicious appearing nevi or other concerning lesions. Results CBC & Chem 7: 09/27/21 10:11 09/27/21 10:11 Labs: Abnormal Lab Results - Last 24 Hours (Table) 09/26/21 09/26/21 09/26/21 Range/Units 18:01 18:01 19:47 WBC 15.2 H (3.8-10.6) k/uL Neutrophils # 11.1 H (1.3-7.7) k/uL ABG pH (7.35-7.45) ABG pO2 (83-108) mmHg ABG HCO3 (21-25) mmol/L ABG Total CO2 (19-24) mmol/L ABG O2 Saturation (94-97) % Potassium 3.3 L (3.5-5.1) mmol/L Glucose 113 H (74-99) mg/dL POC Glucose (mg/dL) (75-99) mg/dL Urine Cocaine Screen Detected H (NotDetected) 09/26/21 09/26/21 09/27/21 Range/Units 21:18 21:26 05:49 WBC (3.8-10.6) k/uL Neutrophils # (1.3-7.7) k/uL ABG pH 7.47 H (7.35-7.45) ABG pO2 >400 H 217 H (83-108) mmHg ABG HCO3 26 H (21-25) mmol/L ABG Total CO2 27 H 26 H (19-24) mmol/L ABG O2 Saturation 99.8 H 99.5 H (94-97) % Potassium (3.5-5.1) mmol/L Glucose (74-99) mg/dL POC Glucose (mg/dL) 104 H (75-99) mg/dL Urine Cocaine Screen (NotDetected) Assessment and Plan Assessment: 1. Acute intentional drug overdose with Zanaflex - Patient intubated and placed on propofol; white kid buffer planning to stop sedation and assess patient's mental status and monitor for weaning parameters - Patient will proceed with spontaneous breathing trial with possible extubation later today 2. Hypothermia; resolved 3. Sinus bradycardia related to hypothermia due to drug overdose; patient remains in normal sinus rhythm; continue with telemetry 4. History of depression; psych consulted 5. Substance abuse; cocaine overdose; continue to monitor per poison control recommendations 6. History of rheumatoid arthritis; maintained on Humira on outpatient basis DVT prophylaxis; SCDs/subcu heparin CODE STATUS; full code
[2021-09-27] MEDS: HEPARIN SODIUM,PORCINE/PF 5,000 UNIT/0.5 ML SYRINGE SQ SCH ×2 (18:04→20:48)
[2021-09-28] MEDS: SODIUM CHLORIDE 0.9% 1,000 ML IV SCH (01:50)
[2021-09-28 05:57] LABS: HCT 36.6 % (34.0-46.0); HGB 12.1 gm/dL (11.4-16.0); MCH 31.2 pg (25.0-35.0); MCV 94.6 fL (80.0-100.0); Platelet Count 208 k/uL (150-450); RBC 3.87 m/uL (3.80-5.40); RDW 12.7 % (11.5-15.5); WBC 8.9 k/uL (3.8-10.6)
[2021-09-28 06:12] LABS: ALT 11 U/L (4-34); AST 18 U/L (14-36); African American GFR (CKD) >90 (>60 ml/min/1.73 sqM); Albumin 3.3 g/dL (3.5-5.0); Alkaline Phosphatase 53 U/L (38-126); Anion Gap 5 mmol/L; Blood Urea Nitrogen 4 mg/dL (7-17); Carbon Dioxide 27 mmol/L (22-30); Chloride 105 mmol/L (98-107); Glucose 93 mg/dL (74-99); Non-African American GFR(CKD) >90 (>60 ml/min/1.73 sqM); Potassium 3.5 mmol/L (3.5-5.1); Sodium 137 mmol/L (137-145); Total Bilirubin 0.9 mg/dL (0.2-1.3)
--- NOTE | 2021-09-28 07:53 | P.PN ---
Subjective Progress Note Date: 09/28/21 PROGRESS NOTE The patient is a 26-year-old female who presented with drug overdose. She had episode sinus bradycardia that resolved. She took overdose of Zanaflex. Hemodynamically she is stable with no evidence of ventricular ectopic activity or significant pauses. She is on no pressor. She is awake alert. PHYSICAL EXAMINATION: Blood pressure 103/52 heart rate 71 LUNGS: Clear to auscultation HEART: Regular rate and rhythm, S1, S2. No S3. No systolic murmur ABDOMEN: Soft, nontender, no organomegaly EXTREMETIES: No edema LAB: Hemoglobin of 12.1, BUN 4, creatinine 0.61, potassium 3.5 IMPRESSION: 1. Drug overdose 2. Sinus bradycardia resolved 3. History of depression 4. Rheumatoid arthritis PLAN: 1. Obtain an echocardiogram with Doppler 2. From the cardiac standpoint no further intervention is needed. 3. We will see her on an as needed basis, please feel free to call us for any questions. Objective - Vital Signs Vital signs: Vital Signs Temp 97.7 F 09/28/21 04:00 Pulse 71 09/28/21 07:00 Resp 15 09/28/21 07:00 BP 103/52 09/28/21 07:00 Pulse Ox 98 09/28/21 07:00 Intake & Output 09/27/21 09/28/21 09/28/21 18:59 06:59 18:59 Intake Total 2703.561 1690 Output Total 935 0 Balance 1955.348 5737 Weight 95.4 kg Intake: IV 1430 1690 Sodium Chloride 0.9% 1, 1430 1690 000 ml @ 130 mls/hr IV . Q7H42M [facility]B Rx#:[id number] Intake, IV Titration 273.561 Amount Sodium Chloride 0.9% 1, 130 000 ml @ 130 mls/hr IV . Q7H42M [facility]B Rx#:[id number] propofoL 1,000 mg In 143.561 Empty Bag 1 bag @ 5 MCG/ KG/MIN 2.722 mls/hr IV . Q24H [facility]B Rx#:[id number] Oral 1000 Output: Gastric Drainage 300 Urine 635 0 Other: Voiding Method Toilet Toilet # Voids 1 - Labs CBC & Chem 7: 09/28/21 05:35 09/28/21 05:35 Labs: Abnormal Lab Results - Last 24 Hours (Table) 09/27/21 09/27/21 09/28/21 Range/Units 10:11 10:11 05:35 WBC 11.6 H (3.8-10.6) k/uL Sodium 136 L (137-145) mmol/L Chloride 108 H (98-107) mmol/L BUN 4 L (7-17) mg/dL Calcium 8.1 L 8.0 L (8.4-10.2) mg/dL Total Protein 6.0 L 6.0 L (6.3-8.2) g/dL Albumin 3.2 L 3.3 L (3.5-5.0) g/dL
[2021-09-28] MEDS: HEPARIN SODIUM,PORCINE/PF 5,000 UNIT/0.5 ML SYRINGE SQ SCH ×2 (09:51→20:29)
--- NOTE | 2021-09-28 11:55 | P.PN ---
Subjective Progress Note Date: 09/28/21 Principal diagnosis: Drug overdose This 26-year-old female patient has history of depression and the patient had drug overdose. The patient intentionally ingested a total of 30 tablets of Zanaflex 4 mg. The patient came into the emergency department. Apparently she was brought in via EMS. Family has been informed about this drug overdose and this could this current to bring her to the hospital. At the time of arrival, the patient was quite obtunded, lethargic, altered, confused, and the patient was also bradycardic and hypothermic. Note that the exact timing of the ingestion was not known. The patient was not given any form of activated charcoal. The patient's case was discussed with poison control. Treatment was essentially supportive. She was given external warming. Her temperature improved. Following that, the patient was given IV fluids. She did not require pressors and her sinus tachycardia gradually improved. She is currently hemodynamically stable. She was kept on a mechanical ventilator throughout the night and this morning showed a propofol running at 50 mg/kg per minute and the patient was on a normal saline infusion rate of 130s's an hour. The patient is an assist-control mode of mechanical ventilation at the rate of 16, tidal volume of 400, FiO2 of 50% with a PEEP of 5. Blood gas showed a pH of 7.47 with a pCO2 of 37 and pO2 of 217. Chest x-ray showing some atelectatic changes and some mild central pulmonary vascular marking. CAT scan of the brain was negative. The patient is easily arousable this morning. She is following commands despite being on propofol. The rest of the urine drug screen was positive for cocaine. Alcohol was negative, Tylenol was negative, salicylates were negative. Electrolytes are all within normal limits patient did have some mild hypokalemia that was replaced. Patient was evaluated today on 09/28/2021, patient is resting in bed, asymptomatic, doing extremely well. Patient is on room air, hemodynamically stable. Patient is yet to be seen by psychiatry on consultation. Her CBC is n ormal electrolytes are normal renal profile is normal liver profile is normal. Her urine drug screen is positive for cocaine. Objective - Vital Signs Vital signs: Vital Signs Temp 98.3 F 09/28/21 08:00 Pulse 69 09/28/21 11:00 Resp 18 09/28/21 10:00 BP 125/77 09/28/21 11:00 Pulse Ox 97 09/28/21 10:00 Intake & Output 09/27/21 09/28/21 09/28/21 18:59 06:59 18:59 Intake Total 2703.561 1690 1140 Output Total 935 0 Balance 0636.160 1316 1140 Weight 95.4 kg Intake: IV 1430 1690 390 Sodium Chloride 0.9% 1, 1430 1690 390 000 ml @ 130 mls/hr IV . Q7H42M SEB Rx#:[id number] Intake, IV Titration 273.561 Amount Sodium Chloride 0.9% 1, 130 000 ml @ 130 mls/hr IV . Q7H42M SEB Rx#:[id number] propofoL 1,000 mg In 143.561 Empty Bag 1 bag @ 5 MCG/ KG/MIN 2.722 mls/hr IV . Q24H SEB Rx#:[id number] Oral 1000 750 Output: Gastric Drainage 300 Urine 635 0 Other: Voiding Method Toilet Toilet Toilet # Voids 1 1 - Exam Physical Exam: Revealed a 26-year-old female in no distress. Head: Atraumatic, normocephalic. HEENT:[Neck is supple.] [No neck masses.] [No thyromegaly.] [No JVD.] Chest: [Clear throughout, no crackles, no rhonchi, no wheezes.] Cardiac Exam: [Normal S1 and S2, no S3 gallop, no murmur.] Abdomen: [Soft, nontender, no megaly, no rebound, no guarding, normal bowel sounds.] Extremities: [No clubbing, no edema, no cyanosis.] Neurological Exam: [No focal neurologic deficit.] Alert oriented 3 in no gross focal deficits. Psychiatric: Normal mood affect and normal mental status examination. Skin: No rashes - Labs CBC & Chem 7: 09/28/21 05:35 09/28/21 05:35 Labs: Abnormal Lab Results - Last 24 Hours (Table) 09/28/21 Range/Units 05:35 BUN 4 L (7-17) mg/dL Calcium 8.0 L (8.4-10.2) mg/dL Total Protein 6.0 L (6.3-8.2) g/dL Albumin 3.3 L (3.5-5.0) g/dL Assessment and Plan Assessment: Impression: Intentional drug overdose with Zanaflex, requiring intubation and mechanical ve ntilation. Patient was extubated yesterday uneventfully. History of depression History of rheumatoid arthritis History of cocaine abuse. Recommendation: Continue present supportive care measures Patient tolerated extubation well over the last 24 hours Psychiatry to see on consultation today and possibly transferred to either psychiatry or regular medical floor. Will follow as needed. Time with Patient: Less than 30
--- NOTE | 2021-09-28 13:01 | P.DS ---
Providers Date of admission: 09/26/21 19:50 Attending physician: Luba Dacosta Consults: 09/26/21 19:50 Consult Physician Stat Consulting Provider: Moon Valdez Consult Reason/Comments: icu patietn Do you want consulting provider notified?: Already Contacted 09/26/21 22:21 Consult Physician Routine Consulting Provider: Wilian Hunt Consult Reason/Comments: bradycardia Do you want consulting provider notified?: Yes 09/27/21 10:45 Consult Physician Routine Consulting Provider: Ehsan Wiggins Consult Reason/Comments: suicidal attempt Do you want consulting provider notified?: Yes Primary care physician: [facility] Course: Patient is a 26-year-old female admitted the secondary to drug overdose on Zanaflex. Patient was intubated presently extubated patient is clinically doing well patient has intentional overdose on Zanaflex and patient had suicidal ideations patient to be evaluated by psychiatry depending on the recommendations patient probably need to be admitted to psychiatric floor or if psychiatry clears her patient will be discharged at that time. Patient although admits to taking Zanaflex intentionally. PHYSICAL EXAMINATION: GENERAL: The patient is alert and oriented x3, not in any acute distress. Well developed, well nourished. HEENT: Pupils are round and equally reacting to light. EOMI. No scleral icterus. No conjunctival pallor. Normocephalic, atraumatic. No pharyngeal erythema. No thyromegaly. CARDIOVASCULAR: S1 and S2 present. No murmurs, rubs, or gallops. PULMONARY: Chest is clear to auscultation, no wheezing or crackles. ABDOMEN: Soft, nontender, nondistended, normoactive bowel sounds. No palpable organomegaly. MUSCULOSKELETAL: No joint swelling or deformity. EXTREMITIES: No cyanosis, clubbing, or pedal edema. NEUROLOGICAL: Gross neurological examination did not reveal any focal deficits. SKIN: No rashes. -Assessment and plan Acute hypoxic respiratory failure secondary to drug overdose patient recovered patient is presently extubated -History of cocaine abuse -Sinus bradycardia on admission secondary to hyperchloremia which is again secondary to drug abuse -History of psychiatric issues management as per psychiatry possible discharged to psychiatric floor. -Diabetes mellitus type 2 most probably patient is on Semiglutide which will be continued -History of rheumatoid arthritis for which patient is on Humira which will be continued Patient Condition at Discharge: Critical Plan - Discharge Summary Discharge Rx Participant: No New Discharge Prescriptions: Continue Albuterol Inhaler [Ventolin Hfa Inhaler] 1 - 2 puff INHALATION RT-Q6H PRN PRN Reason: Shortness Of Breath Adalimumab [Humira(Cf) Pen] 40 mg SQ Q14D Topiramate [Topamax] 50 mg PO BID Semaglutide [Wegovy] 0.25 mg SQ Q7D Discontinued Phentermine HCl [Adipex-P] 37.5 mg PO DAILY tiZANidine [Zanaflex] 4 mg PO Q8HR Discharge Medication List Adalimumab [Humira(Cf) Pen] 40 mg SQ Q14D 09/26/21 [History] Albuterol Inhaler [Ventolin Hfa Inhaler] 1 - 2 puff INHALATION RT-Q6H PRN [History] Semaglutide [Wegovy] 0.25 mg SQ Q7D 09/26/21 [History] Topiramate [Topamax] 50 mg PO BID 09/26/21 [History] Follow up Appointment(s)/Referral(s): Jordy Nguyen MD [Primary Care Provider] - 3 Days Discharge Disposition: TRANSFER TO PSYCH HOSP/UNIT
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
[2021-09-28 18:28] VITALS: BP 129/82; PULSE 73; RESP 15
[2021-09-28 18:29] VITALS: TEMP 98.2
--- NOTE | 2021-09-29 12:42 | ECHOF ---
Referral Reason:re: bradycardia MEASUREMENTS -------- HEIGHT: 175.3 cm WEIGHT: 95.3 kg BP: RVIDd: 2.7 cm (< 3.3) IVSd: 1.1 cm (0.6 - 1.1) LVIDd: 4.1 cm (3.9 - 5.3) LVPWd: 1.1 cm (0.6 - 1.1) IVSs: 1.2 cm LVIDs: 3.7 cm LVPWs: 1.4 cm LA Diam: 2.7 cm (2.7 - 3.8) Ao Diam: 2.9 cm (2.0 - 3.7) AV Cusp: 2.1 cm (1.5 - 2.6) MV EXCURSION: 23.254 mm (> 18.000) MV EF SLOPE: 75 mm/s (70 - 150) EPSS: 0.3 cm MV E Cheng: 0.96 m/s MV DecT: 163 ms MV A Cheng: 0.44 m/s MV E/A Ratio: 2.18 RAP: 5.00 mmHg RVSP: 19.43 mmHg FINDINGS -------- Sinus rhythm. This was a technically good study. LV size, wall thickness and systolic function are normal, with an EF greater than 55%. The left remedios tricular size is normal. The right ventricle is normal in size. The left atrial size is normal. The right atrial size is normal. The aortic valve is trileaflet, and appears structurally normal. No aortic stenosis or regurgitation. There is trace mitral regurgitation. Mild tricuspid regurgitation present. Right ventricular systolic pressure is normal at < 35 mmHg. There is no pulmonic regurgitation present. There is no pericardial effusion. CONCLUSIONS -------- 1. LV size, wall thickness and systolic function are normal, with an EF greater than 55%. 2. The left ventricular size is normal. 3. The right ventricle is normal in size. 4. The left atrial size is normal. 5. The right atrial size is normal. 6. The aortic valve is trileaflet, and appears structurally normal. No aortic stenosis or regurgitati on. 7. There is trace mitral regurgitation. 8. Mild tricuspid regurgitation present. 9. There is no pulmonic regurgitation present. 10. There is no pericardial effusion. [employer] DELIVERY CONSULTANT: Lexis Valdez RDCS
== END 2021-09-28 23:34 | DRG 917 ==
LOC: EC 17:04 → 2SICU 19:50
PROVIDERS: ADMIT Internal Medicine; ATTEND Internal Medicine
PROC: 0BH17EZ Insertion of Endotracheal Airway into Trachea, Via Natural or Artificial Opening (ICD-10-PCS; principal; 2021-09-26)
PROC: 5A1935Z Respiratory Ventilation, Less than 24 Consecutive Hours (ICD-10-PCS; principal; 2021-09-26)
DX: T42.8X2A Poisoning by antiparkinsonism drugs and other central muscle-tone depressants, intentional self-harm, initial encounter (principal); J96.01 Acute respiratory failure with hypoxia; T40.5X2A Poisoning by cocaine, intentional self-harm, initial encounter; T42.8X1A Poisoning by antiparkinsonism drugs and other central muscle-tone depressants, accidental (unintentional), initial encounter; R00.1 Bradycardia, unspecified; E11.9 Type 2 diabetes mellitus without complications; E87.6 Hypokalemia; J40 Bronchitis, not specified as acute or chronic; I08.1 Rheumatic disorders of both mitral and tricuspid valves; E87.8 Other disorders of electrolyte and fluid balance, not elsewhere classified; T68.XXXA Hypothermia, initial encounter; F14.10 Cocaine abuse, uncomplicated; F32.A Depression, unspecified; F41.9 Anxiety disorder, unspecified; M06.9 Rheumatoid arthritis, unspecified; Z79.899 Other long term (current) drug therapy; Z82.49 Family history of ischemic heart disease and other diseases of the circulatory system; Z87.891 Personal history of nicotine dependence; Z91.51 Personal history of suicidal behavior; Z90.49 Acquired absence of other specified parts of digestive tract; Z87.19 Personal history of other diseases of the digestive system
CPT/HCPCS: 31500; 36415; 36556; 36600; 70450; 71045; 80053; 80143; 80179; 80306; 80320; 82805; 83605; 83735; 83930; 84702; 85025; 85027; 85610; 85730; 87635; 93005; 93306; 94002; 94003; 96365; 96366; 96367; 96375; 99291; 99292

== ENCOUNTER 2021-09-28 20:23 | Inpatient (IN) | payer BC, MEDICAID ==
[2021-09-28] MEDS ORDERED: ALBUTEROL INHALER 60 PUFF/8 GM INHALER (MHU) INHALATION PRN (22:58)
[2021-09-28] MEDS ORDERED: ACETAMINOPHEN TAB 325 MG TAB PO PRN (23:00)
[2021-09-28] MEDS ORDERED: MAGNESIUM HYDROXIDE 2,400 MG/10 ML CUP PO PRN (23:00)
[2021-09-28] MEDS ORDERED: MAG HYDROX/AL HYDROX/SIMETH 30 ML CUP PO PRN (23:00)
[2021-09-28] MEDS ORDERED: LORazepam 1 MG TAB PO PRN (23:00)
[2021-09-28] MEDS ORDERED: LORazepam 2 MG/ML INJ IM PRN (23:22)
[2021-09-28] MEDS ORDERED: traZODone HCL 50 MG TAB PO PRN (23:22)
[2021-09-28 23:41] VITALS: RESP 16
[2021-09-29] MEDS: NICOTINE 14MG/24HR PATCH TRANSDERM SCH (08:44)
[2021-09-29] MEDS: TOPIRAMATE 25 MG TAB PO SCH ×2 (08:46→21:35)
--- NOTE | 2021-09-29 14:28 | P.HP ---
Psychiatric H&P - . H&P Date: 09/29/21 History & Physical: Allergies Allergy/AdvReac Type Severity Reaction Status Date / Time No Known Allergies Allergy Verified 09/26/21 18:36 Vital Signs Temp 97.8 F 09/29/21 07:15 Pulse 74 09/29/21 07:15 Resp 16 09/28/21 23:35 BP 101/51 09/29/21 07:15 Pulse Ox 98 09/29/21 07:15 Intake & Output 09/28/21 09/29/21 09/29/21 18:59 06:59 18:59 Weight 95.4 kg 09/29/21 14:00 IDENTIFYING DATA: This patient is a single, employed, 26-year-old female with a significant history of depression and anxiety presenting to the hospital after intentional overdose on Zanaflex. HISTORY OF PRESENT ILLNESS: As per Dr. Brian note from consultation "The patient presented to the hospital initially on 09/27/2021, brought in by EMS after intentional overdose on a total of 30 tablets of Zanaflex 4 mg. The patient was found to be attended, lethargic, altered, confused, bradycardia, and hypothermic. She was subsequently admitted on 2 the ICU and was ventilated. Psychiatry has been consulted for evaluation of the intentional overdose. The patient is currently extubated and is able to participate in the psychiatric interview. The patient is unable to recall the events leading up to this hospitalization. She reports she does not remember overdosing. She does not know how she was brought to the hospital there who called emergency services. She does state that she has intermittent memories of being intubated. The patient reports that she has been feeling increasingly stressed and depressed the past few weeks. States that she knows that she is feeling more depressed that she began lacking motivation, endorsing anhedonia, and feeling a low mood. She reports that she has been trying to get into outpatient psychiatric care through [facility]. The patient is unable to recall the overdose. She denies any previous suicide attempts. In regards to other mood symptoms, patient does not endorse any significant symptoms of bipolar disorder. She denies any periods of excessive energy, grandiosity, or increased goal-directed activity. She denies any auditory or visual hallucinations. She reports no paranoia or other delusions." Patient was seen today attending group and agreeable to speak to senior technical writer today in the office. She was fairly guarded and evasive about what had occurred. 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 She states that she went out drinking the night prior with her mom. She states that she has been dealing with mainly financial stressors including being a single mother, having to pay for her own place, losing her job recently and starting a new job. She claims that she does deal with some irritability and some minor mood swings, mainly claims that she feels depressed and anxious. She states that she sleeps approximately 5 hours a night. Her appetite has been poor. Currently she is denying any suicidal or homicidal ideations intent or plan. She is denying any auditory or visual hallucinations. PAST PSYCHIATRIC HISTORY: Patient has history of anxiety and depression. She reports previous trials of medications including Pristiq, Effexor, and Zoloft. She reports that she last used his medications approximately 3 years ago. Patient denies any previous psychiatric hospitalizations. Patient denies any psychiatric outpatient follow-up. Patient denies any history of suicide attempts in the past. PAST MEDICAL HISTORY: Past Medical History: GERD/Reflux, Rheumatoid Arthritis (RA) Additional Past Medical History / Comment(s): Frequent bronchitis, gall stones ALLERGIES: NO KNOWN DRUG ALLERGIES CHEMICAL DEPENDENCY HISTORY: The patient did test positive for cocaine on admission however she denies any illicit drug use. She reports that she uses a vape daily. She denies any marijuana use. She reports no excessive alcohol use. FAMILY PSYCHIATRIC/SUBSTANCE USE HISTORY: The patient is states that she is unaware of any family history of psychiatric illness or substance abuse. SOCIAL HISTORY: Patient was born and raised in [place]. She lives with her 5-year-old son who is currently staying with her mother. 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 She reports that she is single and never . She graduated high school. She reports no legal issues. She reports no service. She reports that she is Anglican however only goes to jew on holidays. MENTAL STATUS EXAM: General Appearance: Patient appears to be stated age is alert, pleasant, and I did/evasive. Patient appears to have fair hygiene and grooming wearing hospital gown with fair eye contact. She has multiple tattoos. Behavior: Patient is calmly sitting in her chair. Speech: Patient's speech is fluent and nonpressured. vague Mood/Affect: Patient reports their mood is "depressed and anxious", affect is congruent and constricted. Suicidality/Homicidality: Patient denies having any current suicidal or homicidal ideation intent or plan. Perceptions: Patient denies any visual hallucinations and denies any auditory hallucinations Though content/process: There is no evidence of any delusional thought content and thought process is linear and goal-directed. Vague, hearted/evasive. Memory and concentration: AOX3, grossly intact for the purposes of this session. Can spell "WORLD" backwards Judgment and insight: Poor IMPRESSIONS: Major depressive disorder without psychotic features Anxiety disorder NOS cocaine abuse nicotine dependence STRENGTHS/WEAKNESSES: strength is that patient is resilient. Weakness is that patient has poor judgment and is impulsive INTELLECT: average PLAN: -Patient is admitted under voluntary status to MHU for stabilization of psychiatric symptoms and safety. Patient has signed adult voluntary form and medication consent and is placed in patient's chart. -Medications : Will start patient on Cymbalta 30 mg daily for mood/90. We'll also start patient on trazodone 50 mg daily at bedtime for insomnia/mood. -Ativan and Haldol PRN for agitation/aggression -Patient was counselled on substance abuse and desired to cut back on use -Patient was informed of the risks, benefits and side effects of the medication and patient verbally consented to taking the medications. Patient signed med consent form and was placed in chart. -Internal Medicine consult to perform medical evaluation and physical. -NRT - nicotine patch -SW on board for discharge planning. Encourage patient to participate in groups to work on coping skills. 09/29/21 14:23
--- NOTE | 2021-09-29 14:28 | P.CONS ---
History of Present Illness - Reason for Consult Medical clearance - History of Present Illness 26-year-old female was admitted to my service because of overdose and Zanaflex. Patient was intubated subsequently extubated clinically doing well subsequently discharged to psychiatric floor. Patient had intentional overdose on Zanaflex. Patient to on the psychiatric floor clinically doing well. No fever and no nausea vomiting. Patient has history of type 2 diabetes mellitus and patient is on Semaglutide. Does have history of rheumatoid arthritis because it for which patient is on biologic agents for that does have history of asthma for which patient is on albuterol REVIEW OF SYSTEMS: CONSTITUTIONAL: No fever, no malaise, no fatigue. HEENT: No recent visual problems or hearing problems. Denied any sore throat. CARDIOVASCULAR: No chest pain, orthopnea, PND, no palpitations, no syncope. PULMONARY: No shortness of breath, no cough, no hemoptysis. GASTROINTESTINAL: No diarrhea, no nausea, no vomiting, no abdominal pain. NEUROLOGICAL: No headaches, no weakness, no numbness. HEMATOLOGICAL: Denies any bleeding or petechiae. GENITOURINARY: Denies any burning micturition, frequency, or urgency. MUSCULOSKELETAL/RHEUMATOLOGICAL: Denies any joint pain, swelling, or any muscle pain. ENDOCRINE: Denies any polyuria or polydipsia. The rest of the 14-point review of systems is negative. PHYSICAL EXAMINATION: GENERAL: The patient is alert and oriented x3, not in any acute distress. Well developed, well nourished. HEENT: Pupils are round and equally reacting to light. EOMI. No scleral icterus. No conjunctival pallor. Normocephalic, atraumatic. No pharyngeal erythema. No thyromegaly. CARDIOVASCULAR: S1 and S2 present. No murmurs, rubs, or gallops. PULMONARY: Chest is clear to auscultation, no wheezing or crackles. ABDOMEN: Soft, nontender, nondistended, normoactive bowel sounds. No palpable organomegaly. MUSCULOSKELETAL: No joint swelling or deformity. EXTREMITIES: No cyanosis, clubbing, or pedal edema. NEUROLOGICAL: Gross neurological examination did not reveal any focal deficits. SKIN: No rashes. Assessment and plan -Asthma without any acute exacerbation patient will be continued on albuterol as needed -Type 2 diabetes mellitus -Bipolar disorder: Management as per primary service -Rheumatoid arthritis: Patient will be continued on above-mentioned medications for her medical problems. Past Medical History Past Medical History: GERD/Reflux, Rheumatoid Arthritis (RA) Additional Past Medical History / Comment(s): Frequent bronchitis, gall stones History of Any Multi-Drug Resistant Organisms: None Reported Past Surgical History: Section, Cholecystectomy Additional Past Surgical History / Comment(s): [place] teeth extractions. ERCP- 11/02/18 Past Anesthesia/Blood Transfusion Reactions: No Reported Reaction Past Psychological History: Anxiety, Depression Additional Psychological History / Comment(s): Pt resides at home with her mother and pt's child. She is currently unemployed. She drives. Smoking Status: Vaper Past Alcohol Use History: None Reported Additional Past Alcohol Use History / Comment(s): Pt started smoking in 2010 - SMOKING <1/2 PPD Past Drug Use History: None Reported - Past Family History Mother Family Medical History: No Reported History Additional Family Medical History / Comment(s): Mother is healthy Father Family Medical History: Hyperlipidemia, Hypertension Additional Family Medical History / Comment(s): psoriasis Medications and Allergies Home Medications Medication Instructions Recorded Confirmed Type Adalimumab [Humira(Cf) Pen] 40 mg SQ Q14D 09/26/21 09/26/21 History Albuterol Inhaler [Ventolin Hfa 1 - 2 puff INHALATION RT-Q6H PRN 09/26/21 09/26/21 History Inhaler] Semaglutide [Wegovy] 0.25 mg SQ Q7D 09/26/21 09/26/21 History Topiramate [Topamax] 50 mg PO BID 09/26/21 09/26/21 History Allergies Allergy/AdvReac Type Severity Reaction Status Date / Time No Known Allergies Allergy Verified 09/26/21 18:36 Physical Exam Vitals: Vital Signs Temp Pulse Resp BP Pulse Ox 09/29/21 07:15 97.8 F 74 101/51 98 09/28/21 23:35 97.5 F L 71 16 124/73 Intake and Output 09/28/21 09/29/21 09/29/21 22:59 06:59 14:59 Other: Weight 95.4 kg
[2021-09-29] MEDS: DULoxetine HCL 30 MG CAPSULE.DR PO SCH (16:16)
[2021-09-29] MEDS: traZODone HCL 50 MG TAB PO SCH (21:35)
[2021-09-30] MEDS: DULoxetine HCL 30 MG CAPSULE.DR PO SCH (08:36)
[2021-09-30] MEDS: NICOTINE 14MG/24HR PATCH TRANSDERM SCH (08:36)
[2021-09-30] MEDS: TOPIRAMATE 25 MG TAB PO SCH ×2 (08:36→20:14)
--- NOTE | 2021-09-30 10:41 | P.PN ---
Progress Note - Text Progress Note Date: 09/30/21 Interval History: Patient was seen wandering the hallways and was directable and agreeable to manasa kearney with food writer in the office. She claims that she just finished going to group today. She states that she has been going to several groups during the day since yesterday. She continues to be fairly guarded and nonchalant about the overdose and suicide attempt which occurred. She continues to state that "I don't remember what happened". She did describe having a tough time talking about things especially with her mother. She states that she does want to restore enrolled with [facility] and go to a therapist. She states that her mood has been improving mildly since yesterday however states that she did had to have a headache yesterday. She claims that she was also feeling a bit nauseous since starting the medications however this has improved this morning. He claims that her anxiety is in mildly improving. She states that her mother will come to visit her today. At this time patient denies any suicidal or homical ideations, intent or plan. Patient denies any auditory, visual hallucinations and denies any paranoia or delusions. Patient denies any side effects from the medications and has been compliant with meds. Mental Status Exam: General Appearance: Patient appears to be stated age is alert, pleasant, and vague/evasive, improving mildly. Patient appears to have fair hygiene and grooming wearing hospital gown with fair eye contact. She has multiple tattoos. Behavior: Patient is calmly sitting in her chair. Speech: Patient's speech is fluent and nonpressured. Mood/Affect: Patient reports their mood is "a bit better", affect is congruent and constricted. Suicidality/Homicidality: Patient denies having any current suicidal or homicidal ideation intent or plan. Perceptions: Patient denies any visual hallucinations and denies any auditory hallucinations Though content/process: There is no evidence of any delusional thought content and thought process is linear and goal-directed. Vague, hearted/evasive, improving mildly Memory and concentration: AOX3, grossly intact for the purposes of this session Judgment and insight: Poor, improving mildly IMPRESSIONS: Major depressive disorder without psychotic features Anxiety disorder NOS cocaine abuse nicotine dependence Plan: -Patient continues to meet criteria for inpatient psychiatric admission for symptom stabilization and safety. Patient has signed adult voluntary form and medication consent and was placed in patient's chart. -Medications: Continue Cymbalta 30 mg daily for mood/anxiety, trazodone 50 mg daily at bedtime for insomnia/mood. Added melatonin 6 mg daily at bedtime for sleep. -When necessary Ativan and Haldol for agitation/aggression. -NRT - nicotine patch -SW on board for discharge planning. -Internal Medicine consult to perform medical evaluation and physical. -NRT - nicotine patch -SW on board for discharge planning. Encourage patient to participate in groups to work on coping skills. Likely discharge in 1-2 days back home.
[2021-09-30] MEDS: MELATONIN 3 MG TABLET PO SCH (20:14)
[2021-09-30] MEDS: traZODone HCL 50 MG TAB PO SCH (20:14)
[2021-10-01] MEDS: NICOTINE 14MG/24HR PATCH TRANSDERM SCH (08:41)
[2021-10-01] MEDS: DULoxetine HCL 30 MG CAPSULE.DR PO SCH (08:42)
[2021-10-01] MEDS: TOPIRAMATE 25 MG TAB PO SCH ×2 (08:42→20:52)
[2021-10-01] MEDS ORDERED: diphenhydrAMINE 25 MG CAP PO STA (11:06)
--- NOTE | 2021-10-01 11:27 | P.PN ---
Progress Note - Text Progress Note Date: 10/01/21 Interval History: Patient was seen wandering the hallways and was directable and agreeable to manasa kearney with typewriter mechanic in the office. Patient appears to have an improvement in her affect today. She continues to be fairly superficial about what had occurred prior to coming in the hospital. She was able to speak more clearly about it today however after she spoke with her mother yesterday during visiting hours. She states that she was "upset about something" and [place]. Her parents telling her that she was going to overdose. They came to her house immediately to find her overdosed and brought her to the hospital. She states that she is glad that she survived that and has regret now. She states that she is still working through group to to help her with coping skills. She states that she is looking forward to going home to her son. She states that her mood and anxiety been gradually improving. She states that she'll be agreeable to have her Cymbalta increased for tomorrow. She states that she did not sleep well last night and was agreeable to have her trazodone increased. she appears to have mildly improving insight and judgment. She states that her mother will come to visit her today. At this time patient denies any suicidal or homical ideations, intent or plan. Patient denies any auditory, visual hallucinations and denies any paranoia or delusions. Patient denies any side effects from the medications and has been compliant with meds. Mental Status Exam: General Appearance: Patient appears to be stated age is alert, pleasant, and vague, improving mildly. Patient appears to have fair hygiene and grooming wearing hospital gown with fair eye contact. She has multiple tattoos. Behavior: Patient is calmly sitting in her chair. Superficial, improving moderately. Speech: Patient's speech is fluent and nonpressured. Mood/Affect: Patient reports their mood is "better", affect is congruent and constricted. Suicidality/Homicidality: Patient denies having any current suicidal or homicidal ideation intent or plan. Perceptions: Patient denies any visual hallucinations and denies any auditory hallucinations Though content/process: There is no evidence of any delusional thought content and thought process is linear and goal-directed. Superficial, improving mildly Memory and concentration: AOX3, grossly intact for the purposes of this session Judgment and insight: Superficial, improving mildly IMPRESSIONS: Major depressive disorder without psychotic features Anxiety disorder NOS cocaine abuse nicotine dependence Plan: -Patient continues to meet criteria for inpatient psychiatric admission for symptom stabilization and safety. Patient has signed adult voluntary form and medication consent and was placed in patient's chart. -Medications: Increase Continue Cymbalta 60 mg daily for mood/anxiety, increase trazodone 100 mg daily at bedtime for insomnia/mood. melatonin 6 mg daily at bedtime for sleep. -When necessary Ativan and Haldol for agitation/aggression. -NRT - nicotine patch -SW on board for discharge planning. Encourage patient to participate in groups to work on coping skills. Likely discharge back home tomorrow. pillar worker to have family meeting with patient's parents over the phone to ensure that environment is safe for discharge tomorrow.
[2021-10-01] MEDS ORDERED: diphenhydrAMINE 25 MG CAP ONE (11:28)
[2021-10-01] MEDS: MELATONIN 3 MG TABLET PO SCH (20:52)
[2021-10-01] MEDS ORDERED: traZODone HCL 100 MG TAB PO SCH (21:00)
[2021-10-02 07:05] VITALS: BP 111/57; PULSE 69; TEMP 97.7
[2021-10-02] MEDS: TOPIRAMATE 25 MG TAB PO SCH (08:28)
[2021-10-02] MEDS: NICOTINE 14MG/24HR PATCH TRANSDERM SCH (08:29)
[2021-10-02] MEDS ORDERED: DULoxetine HCL 60 MG CAPSULE.DR PO SCH (09:00)
--- NOTE | 2021-10-02 09:48 | P.DS ---
Providers Date of admission: 09/28/21 22:46 Expected date of discharge: 10/02/21 Attending physician: Ehsan Wiggins MD Consults: 09/28/21 23:22 Consult Physician Routine Consulting Provider: Blaise Barroos Consult Reason/Comments: H&P and medical Do you want consulting provider notified?: Yes Primary care physician: Patrick Spence - Discharge Diagnosis(es) (1) Major depressive disorder without psychotic features Current Visit: Yes Status: Acute Priority: High (2) Anxiety disorder Current Visit: Yes Status: Acute Priority: Medium (3) Cocaine abuse Current Visit: Yes Status: Acute Priority: Medium (4) Overdose by ingestion Current Visit: Yes Status: Acute Priority: High (5) Nicotine dependence Current Visit: Yes Status: Acute Priority: Low Hospital Course: Admission HPI: Admission note was completed by junior underwriter "This patient is a single, employed, 26-year-old female with a significant history of depression and anxiety presenting to the hospital after intentional overdose on Zanaflex. As per Dr. Brian note from consultation "The patient presented to the hospital initially on 09/27/2021, brought in by EMS after intentional overdose on a total of 30 tablets of Zanaflex 4 mg. The patient was found to be attended, lethargic, altered, confused, bradycardia, and hypothermic. She was subsequently admitted on 2 the ICU and was ventilated. Psychiatry has been consulted for evaluation of the intentional overdose. The patient is currently extubated and is able to participate in the psychiatric interview. The patient is unable to recall the events leading up to this hospitalization. She reports she does not remember overdosing. She does not know how she was brought to the hospital there who called emergency services. She does state that she has intermittent memories of being intubated. The patient reports that she has been feeling increasingly stressed and depressed the past few weeks. States that she knows that she is feeling more depressed that she began lacking motivation, endorsing anhedonia, and feeling a low mood. She reports that she has been trying to get into outpatient psychiatric care through [facility]. The patient is unable to recall the overdose. She denies any previous suicide attempts. In regards to other mood symptoms, patient does not endorse any significant symptoms of bipolar disorder. She denies any periods of excessive energy, grandiosity, or increased goal-directed activity. She denies any auditory or visual hallucinations. She reports no paranoia or other delusions." Patient was seen today attending group and agreeable to speak to junior underwriter today in the office. She was fairly guarded and evasive about what had occurred. She states that "I probably overdosed" and stated that she was supposed to sweet pickled fruit maker her son in the morning however does not remember doing that. She states that she went out drinking the night prior with her mom. She states that she has been dealing with mainly financial stressors including being a single mother, having to pay for her own place, losing her job recently and starting a new job. She claims that she does deal with some irritability and some minor mood swings, mainly claims that she feels depressed and anxious. She states that she sleeps approximately 5 hours a night. Her appetite has been poor. Currently she is denying any suicidal or homicidal ideations intent or plan. She is denying any auditory or visual hallucinations." Hospital course: Upon admission to the unit patient was directable and agreeable to commence treatment and signed adult voluntary form . Patient got along well with other patients on the unit and followed unit protocol. Patient was compliant with the medications and denied any side effects throughout hospital course. Patient was started on Cymbalta 60 mg daily for mood/anxiety, trazodone 100 mg daily at bedtime when necessary for insomnia/mood, both on 6 mg daily at bedtime for sleep. Patient spoke of her stressors and engaged in therapy both group and individual. Patient was also seen by medical team for history and physical exam. Throughout the course of the hospitalization patient gradually improved with regards to mood, anxiety, sleep and became more future oriented with improved insight and judgment however still remains fairly superficial. On the day of discharge patient denied any suicidal or homicidal ideations intent or plan denied any auditory or visual hallucinations. Patient endorsed wanting to live for her son and to go back to school. The patient denied any access to guns or weapons. Patient denied any paranoia and did not endorse any delusions. Patient does have a significant history of substance abuse and was counseled on abstaining from all substances including alcohol and marijuana. Patient elected to do outpatient substance use treatment program through [facility]. Patient was also counseled on the medications and need for regular compliance and was encouraged to follow-up with their outpatient appointment for mental health and also for primary care. Prior to discharge a family meeting will be arranged by director social to answer any questions and ensure safety upon discharge. Patient will be given a 14 day supply of her medications with one refill due to higher risk of potential overdose. Mental status exam: General Appearance: Patient appears to be tall, stated age is alert, pleasant, and cooperative. Patient is in no acute distress and has improved hygiene and grooming Behavior: Patient is calmly seated without any agitated behavior. Speech: Patient's speech is fluent and nonpressured. Mood/Affect: Patient reports their mood is "better", affect is congruent and euthymic. Suicidality/Homicidality: Patient denies having any suicidal or homicidal ideation intent or plan. Perceptions: Patient denies any auditory or visual hallucinations. Though content/process: There is no evidence of any delusional thought content and thought process is linear and goal-directed. more future oriented Memory and concentration: AOX3, grossly intact for the purposes of this session. Can spell "WORLD" backwards correctly. Judgment and insight: chronically poor, however has improved with guarded prognosis Impression: Major depressive disorder, without psychotic features Anxiety disorder unspecified Cocaine abuse Overdose by ingestion Nicotine dependence Plan: -Continue with discharge today as patient has improved and stabilized psychiatrically and is not currently an imminent threat to herself and/or others. Patient will remain at chronically elevated risk for harm to self and/or others due to her impulsivity and substance abuse. -Continue medications: Cymbalta 60 mg daily for mood/anxiety, trazodone 100 mg daily at bedtime when necessary for insomnia/mood, melatonin 6 mg daily at bedtime for sleep. -Patient was counseled on the need for medication compliance and appropriate follow-up at mental health and also primary care for medical issues. Patient verbalized understanding and agreed. -Social work to arrange for and conduct family meeting to ensure safety upon discharge and answer any questions/concerns. Social work also to arrange for patients follow up appointments for psychiatric care along with follow up with primary care provider. -Patient counseled on abstaining from recreational drugs and marijuana and alcohol. Was informed/educated on the adverse effects on their physical and mental health. Patient verbally agreed and understood. Patient was offered substance abuse treatment however declined at this time. -Patient was instructed to return to the hospital or seek immediate medical care if their psychiatric or medical symptoms do worsen or reoccur. Allergies Allergy/AdvReac Type Severity Reaction Status Date / Time No Known Allergies Allergy Verified 09/26/21 18:36 Vital Signs Temp 97.7 F 10/02/21 06:44 Pulse 69 10/02/21 06:44 Resp 16 10/02/21 06:44 BP 111/57 10/02/21 06:44 Pulse Ox 98 09/29/21 07:15 Intake & Output 10/01/21 10/02/21 10/02/21 18:59 06:59 18:59 Weight 95.4 kg Patient Condition at Discharge: Stable Plan - Discharge Summary Discharge Rx Participant: No New Discharge Prescriptions: New DULoxetine HCL [Cymbalta] 60 mg PO DAILY 14 Days traZODone HCL [Desyrel] 100 mg PO HS PRN 14 Days tab PRN Reason: Insomnia Nicotine 14Mg/24Hr Patch [Habitrol] 1 patch TRANSDERM DAILY 14 Days patch Melatonin 6 mg PO HS 14 Days tablet Topiramate [Topamax] 50 mg PO BID 14 Days tab Continue Adalimumab [Humira(Cf) Pen] 40 mg SQ Q14D Albuterol Inhaler [Ventolin Hfa Inhaler] 1 - 2 puff INHALATION RT-Q6H PRN #1 each PRN Reason: Shortness Of Breath Semaglutide [Wegovy] 0.25 mg SQ Q7D Discontinued Topiramate [Topamax] 50 mg PO BID Discharge Medication List Adalimumab [Humira(Cf) Pen] 40 mg SQ Q14D 09/26/21 [History] Semaglutide [Wegovy] 0.25 mg SQ Q7D 09/26/21 [History] Albuterol Inhaler [Ventolin Hfa Inhaler] 1 - 2 puff INHALATION RT-Q6H PRN #1 each 10/02/21 [Rx] DULoxetine HCL [Cymbalta] 60 mg PO DAILY 14 Days 10/02/21 [Rx] Melatonin 6 mg PO HS 14 Days tablet 10/02/21 [Rx] Nicotine 14Mg/24Hr Patch [Habitrol] 1 patch TRANSDERM DAILY 14 Days patch 10/02/21 [Rx] Topiramate [Topamax] 50 mg PO BID 14 Days tab 10/02/21 [Rx] traZODone HCL [Desyrel] 100 mg PO HS PRN 14 Days tab 10/02/21 [Rx] Activity/Diet/Wound Care/Special Instructions: Activity and diet as tolerated. Avoid the use of street drugs and alcohol. Take all medications as prescribed. When you are in need of refills on your medications please contact your medical provider and/or outpatient psychiatrist to have this done. Please go to scheduled outpatient appointment for aftercare treatment. If symptoms return or become worse, call the crisis line at and/or go to the nearest emergency room for evaluation Discharge Disposition: HOME SELF-CARE
== END 2021-10-02 16:14 | disposition home or self-care (01) | DRG 918 ==
LOC: 3MHU 22:46
PROVIDERS: ADMIT Psychiatry & Neurology Psychiatry; ATTEND Psychiatry & Neurology Psychiatry
DX: T42.8X2A Poisoning by antiparkinsonism drugs and other central muscle-tone depressants, intentional self-harm, initial encounter (principal); E11.9 Type 2 diabetes mellitus without complications; F14.10 Cocaine abuse, uncomplicated; F17.200 Nicotine dependence, unspecified, uncomplicated; F31.9 Bipolar disorder, unspecified; F41.9 Anxiety disorder, unspecified; G47.00 Insomnia, unspecified; J45.909 Unspecified asthma, uncomplicated; M06.9 Rheumatoid arthritis, unspecified; Z79.899 Other long term (current) drug therapy; Z82.49 Family history of ischemic heart disease and other diseases of the circulatory system

== ENCOUNTER 2023-05-03 12:06 | Emergency (ER) | payer BC, OTHER ==
[2023-05-03] MEDS ORDERED: METOCLOPRAMIDE 5 MG/ML 2 ML VIAL IVP STA (13:06)
[2023-05-03] MEDS ORDERED: SODIUM CHLORIDE 0.9% 1,000 ML IV STA (13:06)
[2023-05-03] MEDS ORDERED: DEXAMETHASONE SOD PHOSPHATE 10 MG/ML 1 ML VIAL IVP STA (13:06)
[2023-05-03] MEDS ORDERED: diphenhydrAMINE 50 MG/ML 1 ML VIAL IVP STA (13:06)
[2023-05-03] MEDS ORDERED: KETOROLAC 15 MG/ML 1 ML VIAL IVP STA (13:06)
--- NOTE | 2023-05-03 13:23 | ED ---
Headache HPI - General Chief Complaint: Headache Stated Complaint: migraine Time Seen by Provider: 05/03/23 13:00 Source: patient, RN notes reviewed Mode of arrival: ambulatory Limitations: no limitations - History of Present Illness Initial Comments: This is a 28-year-old female who presents to the emergency department for a headache. Reports a history of migraines, and states that this has been present over the last week. She tried taking [id number] medication and her Nurtec with no relief in symptoms. States that when this occurs, she typically receives IV medication to manage her symptoms. She would not describe this as the worst headache of her life. She does report associated nausea and photophobia. Describes the headache as essentially encompassing her whole head. She is unable to go to school due to her pain. MD Complaint: headache, "migraine" Onset/Timin -: week(s) - Related Data Home Medications Medication Instructions Recorded Confirmed RX: Adalimumab [Humira(Cf) Pen] 40 mg SQ Q14D 09/26/21 09/26/21 RX: Semaglutide [Wegovy] 0.25 mg SQ Q7D 09/26/21 09/26/21 Previous Rx's Medication Instructions Recorded RX: Albuterol Inhaler [Ventolin 1 - 2 puff INHALATION RT-Q6H PRN 10/02/21 Hfa Inhaler] #1 each RX: DULoxetine HCL [Cymbalta] 60 mg PO DAILY 14 Days 10/02/21 RX: Melatonin 6 mg PO HS 14 Days tablet 10/02/21 RX: Nicotine 14Mg/24Hr Patch 1 patch TRANSDERM DAILY 14 Days 10/02/21 [Habitrol] patch RX: Topiramate [Topamax] 50 mg PO BID 14 Days tab 10/02/21 RX: traZODone HCL [Desyrel] 100 mg PO HS PRN 14 Days tab 10/02/21 Ketorolac [Toradol] 10 mg PO Q6HR PRN #15 tab 05/03/23 Ondansetron Odt [Zofran Odt] 4 mg PO Q8HR PRN #15 tab 05/03/23 Allergies Allergy/AdvReac Type Severity Reaction Status Date / Time No Known Allergies Allergy Verified 09/26/21 18:36 Review of Systems ROS Statement: Those systems with pertinent positive or pertinent negative responses have been documented in the HPI. ROS Other: All systems not noted in ROS Statement are negative. Past Medical History Past Medical History: GERD/Reflux, Rheumatoid Arthritis (RA) Additional Past Medical History / Comment(s): Frequent bronchitis, gall stones History of Any Multi-Drug Resistant Organisms: None Reported Past Surgical History: Section, Cholecystectomy Additional Past Surgical History / Comment(s): [place] teeth extractions. ERCP- 11/02/18 Past Anesthesia/Blood Transfusion Reactions: No Reported Reaction Past Psychological History: Anxiety, Depression Additional Psychological History / Comment(s): Pt resides at home with her mother and pt's child. She is currently unemployed. She drives. Smoking Status: Vaper Past Alcohol Use History: None Reported Past Drug Use History: None Reported - Past Family History Mother Family Medical History: No Reported History Additional Family Medical History / Comment(s): Mother is healthy Father Family Medical History: Hyperlipidemia, Hypertension Additional Family Medical History / Comment(s): psoriasis General Exam Limitations: no limitations General appearance: alert, in no apparent distress Head exam: Present: atraumatic, normocephalic, normal inspection Eye exam: Present: normal appearance, PERRL, EOMI. Absent: scleral icterus, conjunctival injection, periorbital swelling Respiratory exam: Present: normal lung sounds bilaterally. Absent: respiratory distress, wheezes, rales, rhonchi, stridor Cardiovascular Exam: Present: regular rate, normal rhythm, normal heart sounds. Absent: systolic murmur, diastolic murmur, rubs, gallop, clicks Neurological exam: Present: alert, oriented X3, CN II-XII intact Psychiatric exam: Present: normal affect, normal mood Skin exam: Present: warm, dry, intact, normal color. Absent: rash Course Vital Signs 05/03/23 13:15 Temperature 98.2 F Pulse Rate 55 L Respiratory 18 Rate Blood Pressure 122/80 O2 Sat by Pulse 98 Oximetry Medical Decision Making - Medical Decision Making This is a 28-year-old female who presents to the emergency department for a headache. Was pt. sent in by a medical professional or institution? @ -No Did you speak to anyone other than the patient for history? @ -No Did you review nursing and triage notes? @ -Yes, and I agree, it is accurate with regards to the patient's symptoms. Were old charts reviewed? @ -No Differential Diagnosis? @ -Differential Headache: Migraine, tension, cluster, carbon monoxide, central venous thrombosis, pension karma temporal arteritis, acute closure glaucoma, intercranial hemorrhage, mastoiditis, sinusitis, head injury, this is not meant to be an all-inclusive list. EKG interpreted by me (3pts min.)? @ -Not obtained X-rays interpreted by me (1pt min.)? @ -Not obtained CT interpreted by me (1pt min.)? @ -Not obtained U/S interpreted by me (1pt. min.)? @ -Not obtained What testing was considered but not performed? (CT, X-rays, U/S, labs)? Why? @ -None What meds were considered but not given? Why? @ -None Did you discuss the management of the patient with other professionals? @ -No Did you reconcile home meds? @ -No Was smoking cessation discussed for >3mins.? @ -I discussed smoking cessation for greater than 3 minutes. The risk of smoking were discussed with the patient including but not limited to risks of cancer, stroke, coronary artery disease and COPD. Also discussed with patient were multiple methods of quitting smoking. Lastly we discussed the financial cost of smoking. Was critical care preformed (if so, how long)? @ -No Were there social determinants of health that impacted care today? How? (Homelessness, low income, unemployed, alcoholism, drug addiction, transportation, low edu. Level, literacy, decrease access to med. care, intermediate, rehab)? @ -No Was there de-escalation of care discussed even if they declined? (Discuss DNR or withdrawal of care, Hospice)? @ -No What co-morbidities impacted this encounter? (DM, HTN, Smoking, COPD, CAD, Cancer, CVA, Hep., AIDS, mental health diagnosis, sleep apnea, morbid obesity)? @ -Migraines Was patient admitted / discharged? @ -Discharged. Lab work obtained and found to be nonactionable. Patient fidencio ated with a migraine cocktail consisting of IV fluids, Toradol, Decadron, Reglan, and Benadryl. She had moderate improvement in symptoms, but was still uncomfortable. She was subsequently given Tylenol and 1g of magnesium sulfate. After those medications, her headache improved substantially and she felt comfortable for discharge home. She was given a prescription for Toradol and Zofran with dosing instructions reviewed in the event her symptoms return. She was otherwise discharged home in stable condition with instruction to follow up with her primary care provider. Undiagnosed new problem with uncertain prognosis? @ -None Drug Therapy requiring intensive monitoring for toxicity (Heparin, Nitro, Insulin, Cardizem)? @ -None Were any procedures done? @ -None Diagnosis/symptom? @ -Headache Acute, or Chronic, or Acute on Chronic? @ -Acute Uncomplicated (without systemic symptoms) or Complicated (systemic symptoms)? @ -Uncomplicated Side effects of treatment? @ -None Exacerbation, Progression, or Severe Exacerbation] @ -Not applicable Poses a threat to life or bodily function? @ -No Return precautions reviewed in depth, the patient is instructed to return to the emergency department with any new, worsening, or concerning symptoms. Patient verbalized understanding. This case was discussed in detail with the attending ED physician, Dr. Quiroz. Presentation, findings, and treatment plan discussed in detail as well. - Lab Data Result diagrams: 05/03/23 13:23 05/03/23 13:23 Lab Results 05/03/23 05/03/23 Range/Units 13:23 13:23 WBC 6.9 (3.8-10.6) k/uL RBC 4.75 (3.80-5.40) m/uL Hgb 14.1 (11.4-16.0) gm/dL Hct 40.7 (34.0-46.0) % MCV 85.7 (80.0-100.0) fL MCH 29.7 (25.0-35.0) pg MCHC 34.6 (31.0-37.0) g/dL RDW 13.2 (11.5-15.5) % Plt Count 239 (150-450) k/uL MPV 8.0 Neutrophils % 42 % Lymphocytes % 37 % Monocytes % 5 % Eosinophils % 15 % Basophils % 0 % Neutrophils # 2.9 (1.3-7.7) k/uL Lymphocytes # 2.6 (1.0-4.8) k/uL Monocytes # 0.3 (0-1.0) k/uL Eosinophils # 1.0 H (0-0.7) k/uL Basophils # 0.0 (0-0.2) k/uL Sodium 138 (137-145) mmol/L Potassium 4.3 (3.5-5.1) mmol/L Chloride 104 (98-107) mmol/L Carbon Dioxide 23 (22-30) mmol/L Anion Gap 11 mmol/L BUN 8 (7-17) mg/dL Creatinine 0.65 (0.52-1.04) mg/dL Est GFR (CKD-EPI)AfAm >90 (>60 ml/min/1.73 sqM) Est GFR (CKD-EPI)NonAf >90 (>60 ml/min/1.73 sqM) Glucose 100 H (74-99) mg/dL Calcium 9.1 (8.4-10.2) mg/dL Total Bilirubin 0.6 (0.2-1.3) mg/dL AST 26 (14-36) U/L ALT 19 (4-34) U/L Alkaline Phosphatase 46 (38-126) U/L Total Protein 7.7 (6.3-8.2) g/dL Albumin 4.3 (3.5-5.0) g/dL Disposition Clinical Impression: Headache, Nicotine dependence Disposition: HOME SELF-CARE Instructions (If sedation given, give patient instructions): Migraine Headache (ED), Acute Headache (ED) Additional Instructions: Return to the emergency department with any new, worsening, or concerning symptoms. You can take the Toradol up to every 6 hours as needed for pain relief. You may take this with Tylenol, however do not take it with ibuprofen or any other anti-inflammatories, take one or the other. You can take the Zofran up to every 8 hours as needed for nausea and vomiting. Follow up with your primary care provider in 1-2 days. Prescriptions: Ketorolac [Toradol] 10 mg PO Q6HR PRN #15 tab PRN Reason: Pain Ondansetron Odt [Zofran Odt] 4 mg PO Q8HR PRN #15 tab PRN Reason: Nausea And Vomiting Is patient prescribed a controlled substance at d/c from ED?: No Referrals: Pj Cottrell MD [Primary Care Provider] - 1-2 days
[2023-05-03 13:41] LABS: Basophils % (A) 0 %; Eosinophils % (A) 15 %; HCT 40.7 % (34.0-46.0); HGB 14.1 gm/dL (11.4-16.0); Lymphocytes # (A) 2.6 k/uL (1.0-4.8); Lymphocytes % (A) 37 %; MCH 29.7 pg (25.0-35.0); MCHC 34.6 g/dL (31.0-37.0); MCV 85.7 fL (80.0-100.0); Monocytes # (A) 0.3 k/uL (0-1.0); Monocytes % (A) 5 %; Neutrophils # (A) 2.9 k/uL (1.3-7.7); Neutrophils % (A) 42 %; Platelet Count 239 k/uL (150-450); RBC 4.75 m/uL (3.80-5.40); RDW 13.2 % (11.5-15.5); WBC 6.9 k/uL (3.8-10.6)
[2023-05-03 13:50] LABS: ALT 19 U/L (4-34); AST 26 U/L (14-36); African American GFR (CKD) >90 (>60 ml/min/1.73 sqM); Albumin 4.3 g/dL (3.5-5.0); Alkaline Phosphatase 46 U/L (38-126); Anion Gap 11 mmol/L; Blood Urea Nitrogen 8 mg/dL (7-17); Calcium 9.1 mg/dL (8.4-10.2); Carbon Dioxide 23 mmol/L (22-30); Chloride 104 mmol/L (98-107); Glucose 100 mg/dL (74-99); Non-African American GFR(CKD) >90 (>60 ml/min/1.73 sqM); Sodium 138 mmol/L (137-145); Total Bilirubin 0.6 mg/dL (0.2-1.3); Total Protein 7.7 g/dL (6.3-8.2)
[2023-05-03 13:59] VITALS: BP 122/80; TEMP 98.2
[2023-05-03 14:02] LABS: Potassium 4.3 mmol/L (3.5-5.1)
[2023-05-03] MEDS ORDERED: ACETAMINOPHEN TAB 500 MG TAB PO STA (14:15)
[2023-05-03] MEDS ORDERED: MAGNESIUM SULFATE-D5W PMX 1 GM in DEXTROSE/WATER 1 100ML.BAG IVPB ONE (14:15)
[2023-05-03 15:41] VITALS: PULSE 82; RESP 16
== END 2023-05-03 15:28 | disposition home or self-care (01) ==
LOC: EC 12:06
DX: R51.9 Headache, unspecified (principal); F17.290 Nicotine dependence, other tobacco product, uncomplicated; M06.9 Rheumatoid arthritis, unspecified; Z79.899 Other long term (current) drug therapy; Z90.49 Acquired absence of other specified parts of digestive tract
CPT/HCPCS: 36415; 80053; 85025; 99406; 99283; 96365; 96375 ×4; 96361; J1200; J1100; J2765; J3475; J1885

== ENCOUNTER 2024-03-22 08:54 | Emergency (ER) | payer BC, OTHER ==
[2024-03-22 08:57] VITALS: TEMP 97.9
--- NOTE | 2024-03-22 09:15 | ED ---
General Adult HPI - General Chief complaint: Headache Stated complaint: Migraine Time Seen by Provider: 03/22/24 09:00 Source: patient, RN notes reviewed Mode of arrival: ambulatory Limitations: no limitations - History of Present Illness Initial comments: co hunter increaseing over 1 week. gradual onset. hx of sim multiple times prev. used to be on meds. hunter r sided. photophobia. nausea. -: days(s) (7) Location: head (r) Severity scale (1-10): 7 Quality: aching Consistency: constant Improves with: none Worsens with: none Associated Symptoms: nausea/vomiting (nausea) - Related Data Home Medications Medication Instructions Recorded Confirmed Adalimumab [Humira(Cf) Pen] 40 mg SQ Q14D 09/26/21 09/26/21 Semaglutide [Wegovy] 0.25 mg SQ Q7D 09/26/21 09/26/21 Previous Rx's Medication Instructions Recorded Albuterol Inhaler [Ventolin Hfa 1 - 2 puff INHALATION RT-Q6H PRN 10/02/21 Inhaler] #1 each DULoxetine HCL [Cymbalta] 60 mg PO DAILY 14 Days 10/02/21 Melatonin 6 mg PO HS 14 Days tablet 10/02/21 Nicotine 14Mg/24Hr Patch [Habitrol] 1 patch TRANSDERM DAILY 14 Days 10/02/21 patch Topiramate [Topamax] 50 mg PO BID 14 Days tab 10/02/21 traZODone HCL [Desyrel] 100 mg PO HS PRN 14 Days tab 10/02/21 Ketorolac [Toradol] 10 mg PO Q6HR PRN #15 tab 05/03/23 Ondansetron Odt [Zofran Odt] 4 mg PO Q8HR PRN #15 tab 05/03/23 Allergies Allergy/AdvReac Type Severity Reaction Status Date / Time No Known Allergies Allergy Verified 09/26/21 18:36 Review of Systems ROS Statement: Those systems with pertinent positive or pertinent negative responses have been documented in the HPI. ROS Other: All systems not noted in ROS Statement are negative. Constitutional: Denies: fever, chills Eyes: Reports: as per HPI. Denies: eye pain ENT: Denies: ear pain Respiratory: Denies: dyspnea Cardiovascular: Denies: chest pain Gastrointestinal: Reports: nausea. Denies: vomiting Neurological: Reports: as per HPI, headache. Denies: weakness, numbness, paresthesias, confusion, abnormal gait Past Medical History Past Medical History: GERD/Reflux, Rheumatoid Arthritis (RA) Additional Past Medical History / Comment(s): Frequent bronchitis, gall stones History of Any Multi-Drug Resistant Organisms: None Reported Past Surgical History: Section, Cholecystectomy Additional Past Surgical History / Comment(s): [place] teeth extractions. ERCP- 11/02/18 Past Anesthesia/Blood Transfusion Reactions: No Reported Reaction Past Psychological History: Anxiety, Depression Smoking Status: Vaper Past Alcohol Use History: None Reported Past Drug Use History: None Reported - Past Family History Mother Family Medical History: No Reported History Additional Family Medical History / Comment(s): Mother is healthy Father Family Medical History: Hyperlipidemia, Hypertension Additional Family Medical History / Comment(s): psoriasis General Exam Limitations: no limitations General appearance: alert, in no apparent distress Head exam: Present: atraumatic, normocephalic Eye exam: Present: normal appearance, PERRL, EOMI. Absent: nystagmus ENT exam: Present: normal oropharynx Neck exam: Present: normal inspection Respiratory exam: Present: normal lung sounds bilaterally Cardiovascular Exam: Present: regular rate, normal rhythm GI/Abdominal exam: Present: soft. Absent: tenderness Extremities exam: Present: normal inspection Neurological exam: Present: alert, oriented X3, CN II-XII intact. Absent: motor sensory deficit Expanded Neurological exam: Present: protecting the airway Speech: Present: fluid speech Cranial nerves: EOM's Intact: Normal, Facial Sensation: Normal Sensory exam: Upper Extremity Light Touch: Normal, Lower Extremity Light Touch: Normal Motor strength exam: RUE: 5, LUE: 5, RLE: 5, LLE: 5 Eye Response: (4) open spontaneously Motor Response: (6) obeys commands Verbal Response: (5) oriented Psychiatric exam: Present: normal affect, normal mood Skin exam: Present: normal color Course Vital Signs 03/22/24 08:55 Temperature 97.9 F Pulse Rate 92 Respiratory 16 Rate Blood Pressure 134/92 O2 Sat by Pulse 99 Oximetry Medical Decision Making - Medical Decision Making rev and agree w rn notes rev prev. ct results considered ct brain but sx are chronic and pt has prev ct pt presents w [facility] over 1 week, sim to previous. pt will be given pain meds and d/ for follow up dx: headache acute on chronic Disposition Clinical Impression: Headache Disposition: HOME SELF-CARE Condition: Stable Instructions (If sedation given, give patient instructions): Acute Headache (ED) Additional Instructions: please follow up with your doctor in 1-2 days for recheck. Return for increased pain, weakness, fever, worsening symptoms or other concerns. Is patient prescribed a controlled substance at d/c from ED?: No Referrals: Manuel Magaña MD [Primary Care Provider] - 1-2 days Time of Disposition: 09:15
[2024-03-22] MEDS: KETOROLAC 15 MG/ML 1 ML VIAL IM STA (09:35)
[2024-03-22] MEDS: diphenhydrAMINE 50 MG/ML 1 ML VIAL IM STA (09:36)
[2024-03-22] MEDS: METOCLOPRAMIDE 5 MG/ML 2 ML VIAL IM STA (09:38)
[2024-03-22 10:30] VITALS: BP 121/77; PULSE 65; RESP 18
== END 2024-03-22 10:31 | disposition home or self-care (01) ==
LOC: EC 08:54
DX: G43.909 Migraine, unspecified, not intractable, without status migrainosus (principal); F17.290 Nicotine dependence, other tobacco product, uncomplicated
CPT/HCPCS: 99283; 96372 ×3; J1200; J2765; J1885